=== PATIENT | male | born 1935 | race Caucasian/White ===

== ENCOUNTER 2017-06-30 09:54 | Outpatient (CLI) | payer MEDICARE ==
[2016-10-23 09:22] VITALS: BMI 22.9
--- NOTE | ~2017-06-30 | HEMODYNAMI ---
PATIENT:LEONCIO OLIVER MEDICAL RECORD: [id number] : 33 LOCATION:[address] [id number] ADMISSION DATE: 06/30/17 Generatedon:06/30/201713:00 Patient name: LEONCIO OLIVER Patient #: [id number] SSN: : 1935 Date of study: 06/30/2017 Page: Of Hemodynamic Procedure Report Patient Data Patient Demographics Procedure consent was obtained First Name: LEONCIO Gender: Male Last Name: MELODY : 1935 Middle Initial: R Age: 82 year(s) Patient #: [id number] Race: Additional ID: [id number] Contact details Address: [address] [place] [address] State: [place] City: [place] Zip code: [address] Past Medical History Allergies: No known allergies Admission Admission Data Admission Date: 06/30/2017 Admission Time: 9:54 Room #: 2115 Lab Results Lab Result Date: 06/30/2017 Lab Result Time: 0:00 Biochemistry Name Units Result Min Max CK-MB ng/ml 2.3 --(--*-)-- 0 3.6 Creatinine mg/dl 1 --(--*-)-- 0.6 1.3 Creatinine l 112 --(-*--)-- 21 215 Kinase Troponin l ng/ml 0.017 --(-*--)-- 0 0.06 CBC Name Units Result Min Max Hemoglobin g/dl 15.8 --(--*-)-- 13.5 17.5 Procedure Procedure Types Cath Procedure Diagnostic Procedure LHC LHC w/Coronaries w/Grafts PCI Procedure SVG-BMS/ELLIOTT Initial Miscellaneous Procedures Moderate Sedation up to 15 minutes Procedure Description Procedure Date Procedure Date: 06/30/2017 Procedure Start Time: 12:43 Procedure End Time: 12:59 Procedure Staff Name Function Lg Bunn MD Performing Physician Bhavik Iraheta RN Nurse Lisa Saba RT Scrjavi Tejeda RT Monitor Procedure Data Cath Procedure Fluoroscopy Diagnostic fluoroscopy Total fluoroscopy Time: 2.4 time: 2.4 min min Diagnostic fluoroscopy Total fluoroscopy dose: 679 dose: 679 mGy mGy Contrast Material Contrast Material Type Amount (ml) Isovue 300 103 Entry Location Entry Primary Successful Side Size Upsize Upsize Entry Closure Succes sful Closure Location (Fr) 1 (Fr) 2 (Fr) Remarks Device Remarks Femoral Right 5 Fr 6 Fr artery Short Estimated blood loss: 10 ml Diagnostic catheters Device Type Used For End Catheter Placement Cordis 5Fr Pigtail Procedure Catheter (MP) Cordis 5Fr JL 4.0 Procedure Catheter (MP) Diagnostic Infinity 5Fr Procedure AR 2 MOD catheter Procedure Complications No complications Procedure Medications Medication Administration Route Dosage Oxygen NC 2 l/min Lidocaine 2% added to field 20 Heparin Flush Bag added to field 2 bags (1000units/500ml NS) 0.9% NaCl I.V. 100 ml/hr Versed I.V. 1 mg Fentanyl I.V. 50 mcg Versed I.V. 1 mg Fentanyl I.V. 50 mcg Heparin Bolus I.V. 4000 units Hemodynamics Rest HGB: 15.8 (g/dl) Heart Rate: 55 (bpm) Snapshots Pre Cath Intra NCS Post Cath Vital Signs Time Heart Resp SPO2 etCO2 BG1qtga NIBP (mmHg) Rhythm Pain Sedation Rate (ipm) (%) (mmHg) (mmHg) Status Level (bpm) 12:30:58 63 14 98 0 0 No Cuff NSR 0 (11) 10(A) , No pain 12:35:10 54 13 100 0 0 167/72(112) NSR 0 (11) 10(A) , No pain 12:39:30 50 15 96 0 0 159/69(125) NSR 0 (11) 10(A) , No pain 12:43:44 51 13 94 0 0 148/79(118) NSR 0 (11) 9(A) , No pain 12:47:52 59 14 94 0 0 169/88(153) NSR 0 (11) 9(A) , No pain 12:52:12 57 15 96 0 0 160/72(129) NSR 0 (11) 9(A) , No pain 12:55:53 61 15 98 0 0 157/71(124) NSR 0 (11) 10(A) , No pain Medications Time Medication Route Dose Verified Delivered Reason Notes Effectiveness by by 12:34:37 Oxygen NC 2 Lg Buffie used for l/min Sepideh Iraheta RN procedure 12:34:44 Lidocaine 2% added 20ml Lg Buffie used for to vial Sepideh Iraheta RN procedure field 12:34:50 Heparin Flush added 2 Lg Buffie used for Bag to bags Sepideh Iraheta RN procedure (1000units/500ml field NS) 12:34:58 0.9% NaCl I.V. 100 Lg Buffie Per physician ml/hr Sepideh Iraheta RN 12:37:31 Versed I.V. 1 mg Lg Buffie for sedation Sepideh Iraheta RN 12:37:38 Fentanyl I.V. 50 Lg Buffie for sedation mcg Sepideh Iraheta RN 12:43:15 Versed I.V. 1 mg Lg Buffie for sedation Sepideh Iraheta RN 12:43:18 Fentanyl I.V. 50 Lg Buffie for sedation mcg Sepideh Iraheta RN 12:48:19 Heparin Bolus I.V. 4000 Lg Buffie for verifi ed units Sepideh Iraheta RN anticoagulation with dr bunn Procedure Log Time Note 12:10:53 Allan Tejeda RT(R) sent for patient. Start room use. 12:18:54 Time tracking: Regular hours 12:18:58 Plan of Care:Hemodynamics will remain stable., Cardiac rhythm will remain stable., Comfort level will be maintained., Respiratory function will remain adequate., Patient/ family verbilizes understanding of procedure., Procedure tolerated without complication., Recovers from procedure without complications.. 12:23:30 Lab Result : Troponin l 0.017 ng/ml 12:23:30 Lab Result : Hemoglobin 15.8 g/dl 12:23:30 Lab Result : Creatinine Kinase 112 l 12:23:30 Lab Result : Creatinine 1 mg/dl 12:23:30 Lab Result : CK-MB 2.3 ng/ml 12:25:34 Patient received from ED to CCL 1 Alert and oriented. Tansferred to table in Supine position. 12:25:35 Warm blankets applied, and kuldip hugger turned on for patient comfort. 12:25:36 Correct patient and procedure confirmed by team. 12::37 Signed procedure consent form obtained from patient. 12:25:38 ECG and BP/O2 sat monitors applied to patient. 12:25:39 Full Disclosure recording started 12:30:08 Vital chart was started 12:34:37 Oxygen 2 l/min NC was administered by Bhavik Iraheta RN; used for procedure; 12:34:44 Lidocaine 2% 20ml vial added to field was administered by Bhavik Iraheta RN; used for procedure; 12:34:50 Heparin Flush Bag (1000units/500ml NS) 2 bags added to field was administered by Bhavik Iraheta RN; used for procedure; 12:34:58 0.9% NaCl 100 ml/hr I.V. was administered by Bhavik Iraheta RN; Per physician; 12:35:43 Rhythm: sinus bradycardia 12:35:45 Baseline sample Acquired. 12:35:51 H&P Date Dictated: 06/30/2017 Emergent; H&P N/A. 12:35:51 Pre-procedure instructions explained to patient. 12:35:52 Pre-op teaching completed and patient verbalized understanding. 12:35:55 Family in patients room. 12:35:56 Patient NPO since Midnight. 12:35:58 Is the patient allergic to Iodine/contrast media? No. 12:36:00 Is patient on blood thinner?Yes 12:36:02 ACC The patient was administered the following blood thiners within the last 24 hours: ACCPlavix 12:36:04 Patient diabetic? No. 12:36:07 Previous problem with sedation/anesthesia? No ? 12:36:08 Snore? Yes 12:36:09 Sleep apnea? No 12:36:10 Deviated septum? No 12:36:11 Opens mouth fully? Yes 12:36:12 Sticks out tongue? Yes 12:36:13 Airway obstruction? No ? 12:36:16 Dentures? Yes IN 12:36:28 Pre procedure: right dorsailis pedis pulse 1+ Palpable, but thready & weak; easily obliterated 12:36:31 Patient pain scale 0/10 ?. 12:36:36 IV patent on arrival in right forearm with 0.9% NaCl at [facility]. 12:36:38 Lab results completed and on chart. 12:36:43 Right groin area was prepped with chlora-prep and draped in sterile fashion 12:36:45 Alarms reviewed by Ra Poole 12:36:45 Sharps counted by scrub and verified by R.N. 12::47 --------ALL STOP TIME OUT------ 12:36:47 Final Timeout: patient, procedure, and site verified with staff and physician. All members of the team are in agreement. 12:36:50 Right groin site verified by team. 12:36:57 Physical assessment completed. ASA score P 2 - A patient with mild systemic disease as per Lg Bunn MD. 12:36:59 Sedation plan: IV Moderate Sedation Versed, Fentanyl 12:37:31 Versed 1 mg I.V. was administered by Bhavik Iraheta RN; for sedation; 12:37:38 Fentanyl 50 mcg I.V. was administered by Bhavik Iraheta RN; for sedation; 12:39:53 Zero performed for pressure channel P1 12:42:56 Procedure started. 12:43:00 Local anesthetic to right femoral artery with Lidocaine 2% by Lg Bunn MD.INITIAL ACCESS ONLY 12:43:03 Use device set Femoral Dx 12:43:05 Tegaderm 4 x 4 opened to sterile field. 12:43:09 Acist Hand Control opened to sterile field. 12:43:09 Acist Manifold opened to sterile field. 12:43:11 Acist Syringe opened to sterile field. 12:43:12 Bag Decanter opened to sterile field. 12:43:12 Medline Cath Pack opened to sterile field. 12:43:12 Terumo 5Fr Richardson Sheath opened to sterile field. 12:43:13 St Munir 260cm J .035 wire opened to sterile field. 12:43:14 Diagnostic Infinity 5Fr Multipack catheter opened to sterile field. 12:43:15 Versed 1 mg I.V. was administered by Bhavik Iraheta RN; for sedation; 12:43:18 Fentanyl 50 mcg I.V. was administered by Bhavik Iraheta RN; for sedation; 12:43:31 A 5 Fr sheath was inserted into the Right Femoral artery 12:43:36 A Cordis 5Fr Pigtail Catheter (MP) was advanced over the wire and used for Procedure. 12:43:39 LV angiography performed. 12:43:40 LV gram done using ARREOLA 12:43:44 EF : 60 % 12:43:55 Injector settings: Ml/sec: 7, Volume: 15, 12:43:57 Catheter removed. 12:44:01 A Cordis 5Fr JL 4.0 Catheter (MP) was advanced over the wire and used for Procedure. 12:45:05 LCA angiography performed. 12:45:13 Catheter removed. 12:45:55 A Diagnostic Infinity 5Fr AR 2 MOD catheter was advanced over the wire and used for Procedure. 12:46:02 RCA angiography performed. 12:46:22 SVG to LAD angiography performed. 12:48:19 Heparin Bolus 4000 units I.V. was administered by Bhavik Iraheta RN; for anticoagulation; verified with dr bunn 12:48:40 Catheter removed. 12:49:06 Terumo 6Fr Richardson Sheath opened to sterile field. 12:49:06 Cloudstaffisper J 300cm 0.014 guide wire opened to sterile field. 12:49:07 Spare to Share BasixCompak Inflation Kit opened to sterile field. 12:49:07 Aastrom [employer] Launcher 6Fr AR 2.0 guide catheter opened to sterile field. 12:50:14 Sheath upsized to a 6 Fr Short. 12:50:21 6 Fr AR 2 guide catheter was inserted over the wire 12:50:25 Whisper wire advanced. 12:51:31 Wire advanced across lesion. 12:51:56 Inflation Number: 1 A Los OTW 2.5 x 12 stent was prepped and advanced across the Aorta Left -> 1st Diag. The stent was deployed at 13 ABE for 0:10 (min:sec). 12:52:56 Stent catheter was removed intact over wire. 12:52:57 Wire removed. 12:52:57 Guide catheter removed. 12:53:01 Procedure ended.(Physican Out) 12:53:15 Cordis 6Fr Exoseal opened to sterile field. 12:54:02 Fluoroscopy time 02.40 minutes. 12:54:06 Flurop Dose total: 679 12:54:06 Fluoroscopy dose: 679 mGy 12:54:10 Contrast amount:Isovue 300 103ml. 12:54:13 Sharps counted by scrub and verified by R.N. 12:56:11 Insertion/operative site no bleeding no hematoma. 12:56:16 Post-op/insertion site Right Femoral artery dressed using a 4 x 4 and Tegaderm. 12:56:17 Post Procedure Pulses reassessed and unchanged 12:56:21 Post-procedure physical assessment completed. ASA score P 2 - A patient with mild systemic disease as per Lg Bunn MD. 12:56:24 Post procedure rhythm: unchanged. 12:56:26 Estimated blood loss: 10 ml 12:56:29 Patient needs reinforcement of post procedure teaching. 12:56:30 Post procedure instruction explained to patient.Patient verbalizes understanding. 12:56:43 Procedure type changed to Cath procedure, Diagnostic procedure, LHC, LHC w/Coronaries w/Grafts, PCI procedure, SVG-BMS/ELLIOTT Initial, Miscellaneous Procedures, Moderate Sedation up to 15 minutes 12:56:47 Procedure Complication : No complications 12:56:57 Procedure and supply charges have been captured, reviewed, submitted and are correct. 12:59:12 Vital chart was stopped 12:59:13 See physician's report for complete and final results. 12:59:16 Report given to Pre/Post Procedure Room. 12:59:34 Patient transfered to Pre/Post Procedure Room with Stretcher. 12:59:38 Procedure ended. 12:59:38 Full Disclosure recording stopped 12:59:44 End room use (Document Last) Intervention Summary Intervention Notes Time ActionType Lesion and Equipment Action# Pressure Duration Attributes Used 12:51:56 Place stent Aorta Left [place] OTW 1 13 00:10 -> 1st Diag 2.5 x 12 stent Device Usage Item Name Manufacture Quantity Catalog Hospital Part Current Minimal Lot# / Number Charge Number Stock Stock Serial# Code Tegaderm 4 3M 1 [id number] [id number] 5 x 4 Acist Hand Acist 1 28429 630913 597327 846401 5 Control Medical Systems Inc Acist Acist 1 79803 412888 751591 913663 5 Manifold Medical Systems Inc Acist Acist 1 76885 987720 662243 235307 20 Syringe Medical Systems Inc Bag Microtek 1 2002S 184016 93060 763867 5 Decanter Medical Inc. Medline Cardinal 1 [id number] 581831 41211 932867 5 Cath Enchanted Lighting Terumo 5Fr Terumo 1 [id number] 008039 179425 988289 [address] Munir 1 609209 451729 572665 158917 30 260cm J .035 wire Diagnostic Cardinal 1 [id number] 407597 81446 189220 30 Infinity Health 5Fr Multipack catheter Cordis 5Fr Cardinal 1 032751 5 Pigtail Health Catheter (MP) Cordis 5Fr Cardinal 1 198384 5 JL 4.0 Health Catheter (MP) Diagnostic Cardinal 1 [id number] 866753 375715 457174 20 Infinity Health 5Fr AR 2 MOD catheter Terumo 6Fr Terumo 1 RZB864 411442 431917 766575 40 Richardson Sheath Singh Singh 1 [id number] 705688 755500 291218 5 isper J Vascular 300cm 0.014 guide wire [facility] 1 [id number] 284478 395733 495770 15 TerraX [employer] Medical Inflation Kit Medtronic Medtronic 1 [id number] 144727 70368 044160 1 Launcher 6Fr AR 2.0 guide catheter [place] OTW Medtronic 1 [id number] 946547 67543 148314 5 [id number] 2.5 x 12 stent Cordis 6Fr Cardinal 1 EX600 582382 801769 124746 10 [facility] [employer] Signature Audit [place] Stage Time Signature Unsigned Intra-Procedure 06/30/2017 Allan Tejeda 1:00:44 PM RT(R) Signatures Monitor : Allan Tejeda RT Signature : Date : Time : [id number] [place] [address]
[~2017-06-30 09:54] MED LIST: BAYER CHEWABLE81 MG PO; LAMISIL250 MG PO; LISINOPRIL5 MG PO; LOVASTATIN20 MG PO; MULTIPLE VITAMI1 TA1 PO; NEXIUM40 MG PO; OMEGA-3100 MG PO; PLAVIX75 MG PO; PRAVACHOL40 MG PO; SAW PALMETTO450 MG PO; SYNTHROID25 MCG PO; ZANTAC150 MG PO
[2017-06-30 10:30] LABS: BASOPHILS 0.2 % (0-2); EOSINOPHILS 0.9 % (0-7); HEMATOCRIT 46.6 % (42.0-54.0); HEMOGLOBIN 15.8 g/dL (13.5-17.5); IMMATURE GRANULOCYTES 0.2 % (0-5); LYMPHOCYTES 19.7 % (15-50); MCH 31.7 pg (26.0-34.0); MCHC 33.9 g/dL (31.0-37.0); MCV 93.4 fL (80.0-100.0); MEAN PLATELET VOLUME 9.6 fL (7.4-10.4); MONOCYTES 9.7 % (2-11); NEUTROPHILS 69.3 % (40-80); PLATELET COUNT 150 10x3/uL (130-400); RBC 4.99 10x6/uL (4.20-6.10); WBC 4.3 10x3/uL (4.8-10.8)
[2017-06-30 10:48] LABS: ALBUMIN 3.8 g/dL (3.4-5.0); ALKALINE PHOSPHATASE 73 U/L (46-116); ALT (SGPT) 25 U/L (10-68); CALC OSMOLALITY 281 mosm/kg (275-300); CALCIUM 9.4 mg/dL (8.5-10.1); CARBON DIOXIDE 26.1 mmol/L (21.0-32.0); CHLORIDE - SERUM 108 mmol/L (98-107); GLUCOSE 103 mg/dL (74-106); POTASSIUM - SERUM 4.2 mmol/L (3.5-5.1); PROTEIN - SERUM 7.4 g/dL (6.4-8.2); SODIUM 142 mmol/L (136-145); UREA NITROGEN 10 mg/dL (7-18); eGFR NON AFRICAN AMERICAN 76 mL/min (90-120)
[2017-06-30 11:00] LABS: CHOL - HDL RATIO 4.3 ratio (2.3-4.9); CHOLESTEROL, TOTAL 160 mg/dL (0-200); CKMB 2.3 U/L (0.0-3.6); CREATINE KINASE 112 UL (21-232); HDL CHOLESTEROL 37 mg/dL (32-96); LDL CHOLESTEROL 113 mg/dL (0-100); LDL-HDL RATIO 3.1 ratio (1.5-3.5); TRIGLYCERIDE 53 mg/dL (30-200); TROPONIN-I < 0.017 ng/mL (0.000-0.060)
--- NOTE | 2017-06-30 13:27 | NUR ---
RIGHT GROIN CDI, NO HEMATOMA OR BLEEDING AT SITE, PEDAL PULES POS, GROIN SOFT TO TOUCH. FAMILY AT SIDE-DENIES NEEDS. REMINDED TO KEEP HEAD ON PILLOW AND RIGHT LEG STRAIGHT.
--- NOTE | 2017-06-30 14:00 | NUR ---
NO CHANGE IN RIGHT GROIN, URINAL USED- 300CC OUT, FAMILY AT SIDE
--- NOTE | 2017-06-30 17:30 | NUR ---
D'C HOME WITH FAMILY, WRITTEN AND VERBAL D'C INSTRUCTIONS GIVEN TO PT AND - VERBAL UNDERSTANDING NOTED
--- NOTE | 2017-07-01 09:51 | HP ---
PATIENT: LEONCIO OLIVER MEDICAL RECORD: [id number] ACCOUNT: [id number] LOCATION:NAIF : 34 ADMISSION DATE: 06/30/17 HISTORY AND PHYSICAL EXAMINATION DIAGNOSES: 1. Unstable angina. 2. Coronary artery disease. 3. Previous percutaneous transluminal coronary angioplasty stent. 4. Hypertension. 5. Hyperlipidemia. HISTORY OF PRESENT ILLNESS: Mr. Oliver presents with increasing angina for the past 2 weeks. Last cardiac stent was in October. PHYSICAL EXAMINATION: GENERAL APPEARANCE: Well-nourished, well-developed, appears stated age. Level of distress, comfortable. PSYCHIATRIC: Mental status, alert, normal affect. Orientation, oriented to time, place and person. EYES: Lids and conjunctiva, noninjected. No discharge, no pallor. ENT: Lips, teeth, gums, normal dentition. Oropharynx, no cyanosis, no pallor. NECK: Carotid arteries, bilateral normal upstroke, no bruits, no thrills. JUGULAR VEINS: No jugular venous pressure or distention. CERVICAL LYMPH NODES: Nontender, nonenlarged. THYROID: Not enlarged. Nontender. No nodules. LUNGS: Respiratory effort, unlabored. CHEST: Normal curvature. No thoracic deformity. No chest wall tenderness. Percussion, resonant. Auscultation, clear. No wheezes, no rales, no rhonchi. CARDIOVASCULAR: Precordial exam, nondisplaced. No heaves or pericardial thrills. Rate and rhythm, regular. Heart sounds, normal S1, normal S2. No S3, no gallop, no rub. Systolic murmur, not heard. Diastolic murmur, not heard. EXTREMITIES: No cyanosis, no edema. Peripheral pulses, full and equal in all extremities, except as noted. No bruits appreciated. ABDOMEN: Soft, nondistended. Normal aorta. No bruit. Nontender. No masses. Liver, nontender, no hepatomegaly. Spleen, nontender, no splenomegaly. MUSCULOSKELETAL: No joint tenderness. No joint swelling. No erythema. NEUROLOGICAL: Normal gait, normal strength, normal tone. SKIN: Warm and dry. REVIEW OF SYSTEMS: The patient reports easy bruising but reports no swollen glands. The patient reports no fever, no night sweats, no significant weight gain, no significant weight loss. No significant exercise tolerance. The patient reports no dry eyes, no irritation, no vision change. Patient reports no difficulty hearing and no ear pain. Patient reports no frequent nose bleeds or nose and sinus problems. Patient reports on arm pain on exertion. No shortness of breath while lying down. No history of heart murmur. Patient reports no cough, no wheezing or coughing up blood. Patient reports no abdominal pain, no vomiting. Normal appetite. No diarrhea and not vomiting blood. No nausea and no constipation. Patient reports no incontinence. No difficulty urinating. No hematuria. No increased frequency. Patient reports no muscle aches. No weakness, no arthralgias, no back pain. No swelling of the extremities. Patient reports no abnormal mole, no jaundice, no rashes. Reports no loss of consciousness. No weakness and no numbness. No seizures, dizziness, or headaches. The patient reports no depression, no sleep disturbance, feeling HISTORY AND PHYSICAL [id number] LEONCIO OLIVER safe in a relationship and no alcohol abuse. Patient reports on fatigue. Reports no runny nose or sinus pressure. No itching, no hives, and no frequent sneezing. OVERALL IMPRESSION: Unstable angina. At this time, we will proceed with coronary angiography. Further care depends upon findings of the angiography. TRANSINT:[id number] Voice Confirmation ID: [id number] DOCUMENT ID: [id number] LEYLA LOPEZ MD at 0951 CC: [id number] DICTATION DATE: 06/30/17 1147 NUCLEAR EQUIPMENT RESEARCH ENGINEER: 06/30/17 1208 DEP CLI 06/30/17 [place] [address]
--- NOTE | 2017-07-01 09:51 | OP ---
PATIENT NAME: LEONCIO OLIVER MEDICAL RECORD: [id number] :33 LOCATION:D.OPS ADMISSION DATE: SURGEON: LEYLA LOPEZ MD DATE OF OPERATION: 06/30/2017 PROCEDURES: 1. PTCA stent LAD through patent vein graft. 2. Left heart catheterization. 3. Selective coronary angiography. 4. Vein graft angiography. 5. Left ventriculogram. INDICATION: Unstable angina and coronary artery disease. PROCEDURE IN DETAIL: After informed consent was obtained and after detailed explanation of risks, benefits as well as alternative therapies, the patient elected to proceed with angiogram and angioplasty. The right femoral area is prepped and draped in normal sterile fashion. The right femoral artery was cannulated via modified Seldinger technique with placement of 6-Mohawk sheath. All catheters exchanged through this sheath. FINDINGS: The left ventriculogram was performed in standard 30-degree ARREOLA view, reveals good cardiac wall motion throughout all segments. Overall ejection fraction estimated at 60%. SELECTIVE CORONARY ANGIOGRAPHY: 1. Left main showed no significant angiographic disease. 2. Left anterior descending is totally occluded. 3. Left circumflex is widely patent with no significant stenosis. 4. Vein graft to the LAD - LAD diagonal juncture is widely patent. The diagonal is a relatively large system with a previously placed stent with 70%-80% in-stent restenosis. The LAD is devoid of significant disease. 5. The right coronary has moderate irregularities, but no flow-limiting stenosis. Previously placed stent is widely patent. PTCA STENT OF THE LAD DIAGONAL THROUGH THE VEIN GRAFT: The stent used was a 2.5 x 12 mm Los taken to 17 atmospheres. Result was 0% residual stenosis. OVERALL IMPRESSION: Successful percutaneous transluminal coronary angioplasty stent of the LAD diagonal going from 80% initial stenosis to 0% residual. TRANSINT:[id number] Voice Confirmation ID: [id number] DOCUMENT ID: [id number] LEYLA LOPEZ MD at 0951 CC: [id number] DICTATION DATE: 06/30/17 1258 COMPUTER REPAIRER: 06/30/17 1848 DEP CLI 06/30/17 [place] [address]
== END 2017-06-30 17:30 | disposition home or self-care (01) ==
LOC: D.ER 09:54 → D.OPS 09:54 → D.M2 09:54 → EDSTATUS 12:00 → D.M2 12:42 → D.CLR 14:46 → D.OPS 17:30
PROVIDERS: Emergency Medicine
DX: I25.110 Atherosclerotic heart disease of native coronary artery with unstable angina pectoris (principal); Z95.5 Presence of coronary angioplasty implant and graft; I10 Essential (primary) hypertension; E78.5 Hyperlipidemia, unspecified; Z01.812 Encounter for preprocedural laboratory examination
CPT/HCPCS: 93459; C9600

== ENCOUNTER 2017-07-25 10:31 | Observation (INO) | payer MEDICARE ==
[~2017-07-25] VITALS: Ht 180.3 cm; Wt 72.7 kg
--- NOTE | ~2017-07-25 | HEMODYNAMI ---
PATIENT:LEONCIO OLIVER MEDICAL RECORD: [id number] : 33 LOCATION[facility] [id number] ADMISSION DATE: 07/25/17 Generatedon:07/26/20179:16 Patient name: LEONCIO OLIVER Patient #: [id number] SSN: : 1935 Date of study: 07/26/2017 Page: Of Hemodynamic Procedure Report Patient Data Patient Demographics Procedure consent was obtained First Name: LEONCIO Gender: Male Last Name: MELODY : 1935 Middle Initial: R Age: 82 year(s) Patient #: [id number] Race: Additional ID: [id number] Contact details Address: [address] [place] [address] State: [place] City: [place] Zip code: [address] Past Medical History Allergies: No known allergies Admission Admission Data Admission Date: 07/25/2017 Admission Time: 14:21 Room #: 2118 Lab Results Lab Result Date: 07/26/2017 Lab Result Time: 0:00 Biochemistry Name Units Result Min Max BUN mg/dl 11 --(-*--)-- 7 18 Creatinine mg/dl 0.9 --(-*--)-- 0.6 1.3 CBC Name Units Result Min Max Hemoglobin g/dl 15.2 --(-*--)-- 13.5 17.5 Procedure Procedure Types Cath Procedure Diagnostic Procedure C [facility] w/Coronaries w/Grafts Miscellaneous Procedures Moderate Sedation up to 15 minutes Procedure Description Procedure Date Procedure Date: 07/26/2017 Procedure Start Time: 9:07 Procedure End Time: 9:15 Procedure Staff Name Function Jose Alfredo Parrish MD Performing Physician Lisa Saba RT Scrub Elvin Zhong RN Nurse Marta Shah RT Monitor Procedure Data Cath Procedure Fluoroscopy Diagnostic fluoroscopy Total fluoroscopy Time: 1.1 time: 1.1 min min Diagnostic fluoroscopy Total fluoroscopy dose: 197 dose: 197 mGy mGy Contrast Material Contrast Material Type Amount (ml) Isovue 300 54 Entry Location Entry Primary Successful Side Size Upsize Upsize Entry Closure Succes sful Closure Location (Fr) 1 (Fr) 2 (Fr) Remarks Device Remarks Femoral Right 5 Fr Exoseal artery Estimated blood loss: 10 ml Diagnostic catheters Device Type Used For End Catheter Placement Cordis 5Fr JL 4.0 Procedure Catheter (MP) Cordis 5Fr 3DRC Catheter Procedure (MP) Cordis 5Fr Pigtail Ventriculography Catheter (MP) Procedure Complications No complications Procedure Medications Medication Administration Route Dosage Oxygen NC 2 l/min Heparin Flush Bag added to field 2 bags (1000units/500ml NS) 0.9% NaCl I.V. 100 ml/hr Plavix P.O. 75 mg Fentanyl I.V. 50 mcg Versed I.V. 1 mg Fentanyl I.V. 50 mcg Versed I.V. 1 mg Hemodynamics Rest HGB: 15.2 (g/dl) Heart Rate: 65 (bpm) Pressure Samples Time Site Value (mmHg) Purpose Heart Use Rate(bpm) 9:09 AO 167/69(104) Snapshot 51 9:12 LV 169/9,12 Snapshot 55 9:13 AO 164/63(105) Pullback 54 9:13 LV 180/14,18 Pullback 54 Gradients Valve Time Site 1 Site 2 Mean SEP/DFP Peak To Heart Use (mmHg) (sec/min) Peak Rate (mmHg) (bpm) Aortic 9:13 LV AO 11 18 16 54 180/14,18 164/63(105) Calculations Valve P-P Mean Valve Index Valve Source Name Gradient Area Flow (cm2) Aortic 16 11 16 11 Snapshots Pre Cath Intra NCS Post Cath Vital Signs Time Heart Resp SPO2 etCO2 [id number] NIBP (mmHg) Rhythm Pain Sedation Rate (ipm) (%) (mmHg) (mmHg) Status Level (bpm) 8:51:10 59 18 97 0 0 186/73(145) NSR 0 (11) 10(A) , No pain 8:55:58 50 16 99 0 0 181/73(145) NSR 0 (11) 10(A) , No pain 9:00:45 49 17 97 0 0 153/74(115) NSR 0 (11) 10(A) , No pain 9:06:01 51 18 94 0 0 143/75(115) NSR 0 (11) 10(A) , No pain 9:11:14 51 17 96 0 0 176/76(142) NSR 0 (11) 9(A) , No pain 9:15:26 54 18 92 0 0 143/75(112) NSR 0 (11) 9(A) , No pain Medications Time Medication Route Dose Verified Delivered Reason Notes Eff ectiveness by by 8:52:11 Oxygen NC 2 Jose Alfredo Elvin Per l/min St. José Zhong RN physician 8:52:23 Heparin Flush added 2 Jose Alfredo Elvin used for Bag to bags St. José Zhong RN procedure (1000units/500ml field NS) 8:52:32 0.9% NaCl I.V. 100 Jose Alfredo Oconnor Per ml/hr St. José Zhong RN physician 8:55:33 Plavix P.O. 75 mg Jose Alfredo Oconnor for FrancoisRobbi Zhong RN antiplatelet MD therapy 9:04:47 Fentanyl I.V. 50 Jose Alfredo [employer] for sedation mcg St. José Zhong RN, MD 9:04:55 Versed I.V. 1 mg Jose Alfredo Oconnor for sedation St. José Zhong RN, MD 9:07:38 Fentanyl I.V. 50 Jose Alfredo Oconnor for sedation mcg St. José Zhong RN, MD 9:07:44 Versed I.V. 1 mg Jose Alfredo Oconnor for sedation St. José Zhong RN, MD Procedure Log Time Note 8:30:33 Elvin Zhong RN sent for patient. Start room use. 8:37:34 Time tracking: Call back 8:37:38 Plan of Care:Hemodynamics will remain stable., Cardiac rhythm will remain stable., Comfort level will be maintained., Respiratory function will remain adequate., Patient/ family verbilizes understanding of procedure., Procedure tolerated without complication., Recovers from procedure without complications.. 8:45:47 Patient received from PCU to CCL 1 Alert and oriented. Tansferred to table in Supine position. 8:45:55 Warm blankets applied, and kuldip hugger turned on for patient comfort. 8:45:55 Correct patient and procedure confirmed by team. 8:45:56 Signed procedure consent form obtained from patient. 8:45:57 ECG and BP/O2 sat monitors applied to patient. 8:45:58 Full Disclosure recording started 8:50:12 Baseline sample Acquired. 8:50:12 Vital chart was started 8:50:17 Rhythm: sinus rhythm 8:52:11 Oxygen 2 l/min NC was administered by Elvni Zhong RN; Per physician; 8:52:23 Heparin Flush Bag (1000units/500ml NS) 2 bags added to field was administered by Elvin Zhong RN; used for procedure; 8:52:32 0.9% NaCl 100 ml/hr I.V. was administered by Elvin Zhong RN; Per physician; 8:55:33 Plavix 75 mg P.O. was administered by Elvin Zhong RN; for antiplatelet therapy; 8:56:30 Cook 18G 7cm Percutaneous Entry needle opened to sterile field. 8:56:51 H&P Date Dictated: 07/25/2017 Within 30 days and on chart.. 8:56:53 Pre-procedure instructions explained to patient. 8:56:56 Family unavailable. 8:56:59 Patient NPO since Midnight. 8:57:09 Patient allergic to No known allergies 8:57:13 Is the patient allergic to Iodine/contrast media? No. 8:57:16 Is patient on blood thinner?Yes 8:57:21 ACC The patient was administered the following blood thiners within the last 24 hours: ACCAspirin, ACCPlavix 8:57:24 Patient diabetic? No. 8:57:28 Snore? No 8:57:30 Sleep apnea? No 8:57:36 Dentures? Yes in tight 8:57:59 Patient pain scale 0/10 pain with activity'. 8:58:09 IV patent on arrival in right forearm with 0.9% NaCl at [facility]. 8:59:12 Lab Result : BUN 11 mg/dl 8:59:12 Lab Result : Creatinine 0.9 mg/dl 8:59:12 Lab Result : Hemoglobin 15.2 g/dl 8:59:17 Lab results completed and on chart. 8:59:21 Right groin area was prepped with chlora-prep and draped in sterile fashion 8:59:22 Alarms reviewed by R. N. 8:59:23 Sharps counted by scrub and verified by R.N. 8:59:24 Physician paged 8:59:57 Procedure type changed to Cath procedure, Diagnostic procedure, LHC, LHC w/Coronaries w/Grafts, Miscellaneous Procedures, Moderate Sedation up to 15 minutes 9:03:47 Physician arrived 9:03:55 --------ALL STOP TIME OUT------ 9:03:56 Final Timeout: patient, procedure, and site verified with staff and physician. All members of the team are in agreement. 9:03:59 Right groin site verified by team. 9:04:03 Sedation plan: IV Moderate Sedation Versed, Fentanyl 9:04:07 Zero performed for pressure channel P1 9:04:27 Zero performed for pressure channel P1 9::47 Fentanyl 50 mcg I.V. was administered by Elvin Zhong RN; for sedation; 9::55 Versed 1 mg I.V. was administered by Elvin Zhong RN; for sedation; 9:07:07 Procedure started. 9:07:17 Local anesthetic to right femoral artery with Lidocaine 2% by Jose Alfredo Parrish MD.INITIAL ACCESS ONLY 9:07:32 A 5 Fr sheath was inserted into the Right Femoral artery 9:07:38 Fentanyl 50 mcg I.V. was administered by Elvin Zhong RN; for sedation; 9:07:44 Versed 1 mg I.V. was administered by Elvin Zhong RN; for sedation; 9:07:51 Use device set Femoral Dx 9:07:53 Acist Syringe opened to sterile field. 9:07:53 Bag Decanter opened to sterile field. 9:07:54 Medline Cath Pack opened to sterile field. 9:07:54 Terumo 5Fr [place] Sheath opened to sterile field. 9:07:55 St Munir 260cm J .035 wire opened to sterile field. 9:07:56 Acist Hand Control opened to sterile field. 9:07:56 Acist Manifold opened to sterile field. 9:07:57 Diagnostic Infinity 5Fr Multipack catheter opened to sterile field. 9:07:57 Tegaderm 4 x 4 opened to sterile field. 9:08:06 A Cordis 5Fr JL 4.0 Catheter (MP) was advanced over the wire and used for Procedure. 9:08:12 LCA angiography performed. 9:09:50 Catheter removed. 9:10:00 A Cordis 5Fr 3DRC Catheter (MP) was advanced over the wire and used for Procedure. 9:10:52 RCA angiography performed. 9:11:46 Catheter removed. 9:11:59 A Cordis 5Fr Pigtail Catheter (MP) was advanced over the wire and used for Ventriculography. 9:12:05 LV gram done using ARREOLA 9:13:12 EF : 55 % 9:13:14 Catheter removed. 9:13:25 Cordis 5Fr Exoseal opened to sterile field. 9:13:50 Sheath removed intact; hemostasis achieved with Exoseal to the Right Femoral artery. 9:13:53 Procedure ended.(Physican Out) 9:14:03 Fluoroscopy time 01.10 minutes. 9:14:09 Flurop Dose total: 197 9:14:09 Fluoroscopy dose: 197 mGy 9:14:14 Contrast amount:Isovue 300 54ml. 9:14:16 Sharps counted by scrub and verified by R.N. 9:14:17 Insertion/operative site no bleeding no hematoma. 9:14:21 Post-op/insertion site Right Femoral artery dressed using a 4 x 4 and Tegaderm. 9:14:23 Post Procedure Pulses reassessed and unchanged 9:14:28 Post-procedure physical assessment completed. ASA score P 2 - A patient with mild systemic disease as per Jose Alfredo Parrish MD. 9:14:34 Post procedure rhythm: sinus rhythm 9:14:40 Estimated blood loss: 10 ml 9:14:47 Post procedure instruction explained to patient.Patient verbalizes understanding. 9:14:58 Patient needs reinforcement of post procedure teaching. 9:15:00 Procedure and supply charges have been captured, reviewed, submitted and are correct. 9:15:33 Procedure Complication : No complications 9:15:36 Vital chart was stopped 9:15:37 See physician's report for complete and final results. 9:15:40 Report given to Med II. 9:15:43 Patient transfered to Med II with Bed. 9:15:45 Procedure ended. 9:15:45 Full Disclosure recording stopped 9:15:48 End room use (Document Last) Device Usage Item Name Manufacture Quantity Catalog Hospital Part Current Minimal Lot# / Number Charge Number Stock Stock Serial# Code Cook 18G 7cm [employer] 1 [id number] 63068 799218 5 Percutaneous Entry needle Acist Acist 1 37618 786455 739800 648716 20 [employer] Bag Decanter Microtek 1 2002S 085314 24176 881361 5 Medical Inc[employer] Medline Cath Cardinal 1 [id number] 185981 78669 988993 5 Pack Health Terumo 5Fr Terumo 1 [id number] 096033 919517 350724 [address] St Munir 1 [id number] 044033 914754 951719 30 260cm J .035 wire Acist Hand Acist 1 27987 510184 649542 545445 5 [employer] Inc Acist Acist 1 10146 059081 405321 084688 5 Manifold [employer] Inc Diagnostic Cardinal 1 [id number] 146137 56992 833350 30 Infinity 5Fr Health Multipack catheter Tegaderm 4 x 3M 1 1626W 694322 393191 697941 5 4 Cordis 5Fr Cardinal 1 470497 5 JL 4.0 Health Catheter (MP) Cordis 5Fr Cardinal 1 765888 5 3DRC Health Catheter (MP) Cordis 5Fr Cardinal 1 760181 5 Pigtail Health Catheter (MP) Cordis 5Fr Cardinal 1 EX500 462561 813094 144634 10 [facility] DWNLD Signature Audit [place] Stage Time Signature Unsigned Intra-Procedure 07/26/2017 Marta Shah 9:16:12 AM RT(R) Signatures Monitor : Marta Shah Signature : RT Date : Time : [address] [place] [address]
--- NOTE | ~2017-07-25 | CN ---
PATIENT NAME:LEONCIO OLIVER MEDICAL RECORD: [id number] : 33 LOCATION:D. D.2118 ADMIT DATE: 07/25/17 ACCOUNT: [id number] CONSULTING PHYSICIAN: BRITTANIE GRUBBS MD REFERRING PHYSICIAN: CATRACHO RICO DO DATE OF CONSULTATION: 07/26/2017 HISTORY OF PRESENT ILLNESS: An 82-year-old gentleman well known to our service with history of coronary artery disease, status post intervention, has had continued pain since that time, acutely worsened yesterday with any exertion, chest tightness and pressure. We were asked to see him concerning his cardiovascular status. ALLERGIES: None known. MEDICATIONS: Typically include lovastatin 20 q. day, Plavix 75 q. day, aspirin 81 mg p.o. q. day, Nexium 20 q. day. PAST MEDICAL HISTORY: Includes history of coronary artery disease, dyslipidemia and gastroesophageal reflux disease. SOCIAL HISTORY: He lives by himself. He is a nonsmoker, nondrinker. He takes care of all his ADLs, tries to walk on a daily basis. REVIEW OF SYSTEMS: The patient reports easy bruising but reports no swollen glands. The patient reports no fever, no night sweats, no significant weight gain, no significant weight loss. No significant exercise tolerance. The patient reports no dry eyes, no irritation, no vision change. Patient reports no difficulty hearing and no ear pain. Patient reports no frequent nose bleeds or nose and sinus problems. Patient reports on arm pain on exertion. No shortness of breath while lying down. No history of heart murmur. Patient reports no cough, no wheezing or coughing up blood. Patient reports no abdominal pain, no vomiting. Normal appetite. No diarrhea and not vomiting blood. No nausea and no constipation. Patient reports no incontinence. No difficulty urinating. No hematuria. No increased frequency. Patient reports no muscle aches. No weakness, no arthralgias, no back pain. No swelling of the extremities. Patient reports no abnormal mole, no jaundice, no rashes. Reports no loss of consciousness. No weakness and no numbness. No seizures, dizziness, or headaches. The patient reports no depression, no sleep disturbance, feeling safe in a relationship and no alcohol abuse. Patient reports on fatigue. Reports no runny nose or sinus pressure. No itching, no hives, and no frequent sneezing. PHYSICAL EXAMINATION: GENERAL: Pleasant gentleman, in no acute distress. VITAL SIGNS: Blood pressure 131/93, pulse 59 and regular. HEENT: Normocephalic, atraumatic. NECK: No JVD or bruit. HEART: Regular. LUNGS: Clear. ABDOMEN: Soft, nontender. EXTREMITIES: Pulses 2+. There is no edema. DIAGNOSTIC DATA: ECG is without acute change. CONSULT REPORT [id number] LEONCIO OLIVER IMPRESSION: Continued angina. PLAN: For diagnostic angiography, intervention based on above. TRANSINT:[id number] Voice Confirmation ID: [id number] DOCUMENT ID: [id number] BRITTANIE GRUBBS MD CC: [id number] DICTATION DATE: 07/26/17845 TAFFY CANDY MAKER: 07/26/17914 ADM IN [address] [place] [address]
--- NOTE | ~2017-07-25 | OP ---
PATIENT NAME: LEONCIO OLIVER MEDICAL RECORD: [id number] :33 LOCATION:D.M2 D.2118 ADMISSION DATE:07/25/17 SURGEON: BRITTANIE GRUBBS MD DATE OF OPERATION: 07/26/2017 PROCEDURES: Left heart catheterization, selective coronary angiography, right femoral artery approach. CATHETERS: A 5-Maltese sheath, 5/4 left and right Tresa, 5/4 pig. The procedure was well tolerated. The patient returned to lr, sheath removed. ExoSeal device was placed. FINDINGS: Left ventriculography in 30-degree ARREOLA view: Normal wall motion, normal systolic function. CORONARY ANATOMY: LEFT MAIN: Left main is free of disease. LAD: Fills for a short period of time and is totally occluded. CIRCUMFLEX: This is a left dominant system, free of disease. RIGHT CORONARY ARTERY: Rudimentary. Area of previous stenting is widely patent. BYPASS GRAFT: Saphenous vein graft: Saphenous vein graft to the diagonal which feeds LAD retrograde is widely patent, stents patent. IMPRESSION: Patent stent. Probably has small vessel disease resulting in angina. No high risk anatomy here. We will add Imdur to his medical therapy. Further recommendations as above. TRANSINT:[id number] Voice Confirmation ID: [id number] DOCUMENT ID: [id number] BRITTAINE GRUBBS MD CC: [id number] DICTATION DATE: 07/26/17924 GRAIN SPOUTER: 07/26/17 1005 DIS IN 07/26/17 [facility] [address] [id number]
[2017-07-25 12:01] LABS: BASOPHILS 0.4 % (0-2); EOSINOPHILS 1.3 % (0-7); HEMATOCRIT 44.5 % (42.0-54.0); HEMOGLOBIN 15.2 g/dL (13.5-17.5); LYMPHOCYTES 17.6 % (15-50); MCH 31.3 pg (26.0-34.0); MCHC 34.2 g/dL (31.0-37.0); MCV 91.8 fL (80.0-100.0); MEAN PLATELET VOLUME 9.9 fL (7.4-10.4); MONOCYTES 10.3 % (2-11); NEUTROPHILS 70.4 % (40-80); PLATELET COUNT 151 10x3/uL (130-400); RBC 4.85 10x6/uL (4.20-6.10); RDW 12.8 % (11.5-14.5); WBC 4.7 10x3/uL (4.8-10.8)
[2017-07-25 12:25] LABS: ALBUMIN 3.6 g/dL (3.4-5.0); ALKALINE PHOSPHATASE 56 U/L (46-116); ALT (SGPT) 24 U/L (10-68); CALC OSMOLALITY 275 mosm/kg (275-300); CALCIUM 9.4 mg/dL (8.5-10.1); CARBON DIOXIDE 24.9 mmol/L (21.0-32.0); CHLORIDE - SERUM 107 mmol/L (98-107); CREATININE - SERUM 0.9 mg/dL (0.6-1.3); GLUCOSE 108 mg/dL (74-106); PROTEIN - SERUM 6.8 g/dL (6.4-8.2); SODIUM 138 mmol/L (136-145); UREA NITROGEN 11 mg/dL (7-18); eGFR NON AFRICAN AMERICAN 85 mL/min (90-120)
[2017-07-25 12:28] LABS: CHOL - HDL RATIO 3.8 ratio (2.3-4.9); CHOLESTEROL, TOTAL 129 mg/dL (0-200); CREATINE KINASE 151 UL (21-232); HDL CHOLESTEROL 34 mg/dL (32-96); LDL CHOLESTEROL 84 mg/dL (0-100); LDL-HDL RATIO 2.5 ratio (1.5-3.5); TRIGLYCERIDE 58 mg/dL (30-200); TROPONIN-I < 0.017 ng/mL (0.000-0.060)
--- NOTE | 2017-07-25 16:13 | NUR ---
BRETT FROM ER BY KIAN. OREINTED TO ROOM. CALL LIGHT IN REACH. WILL CONT. PLAN OF CARE.
[2017-07-25] MEDS ORDERED: NEXIUM20 MG PO (16:32)
[2017-07-25 16:34] VITALS: BP 132/64; Ht 180.3 cm; Wt 72.7 kg
[2017-07-25 19:22] LABS: CREATINE KINASE 114 UL (21-232)
[2017-07-25 19:23] LABS: TROPONIN-I < 0.017 ng/mL (0.000-0.060)
[2017-07-25 20:00] VITALS: BP 137/63
--- NOTE | 2017-07-25 22:39 | NUR ---
PT RESTING WELL WITHOUT C/O OR DISTRESS NOTED. NO NEEDS VOICED. CALL LIGHT WITHIN REACH. WILL CONT TO MONITOR.
--- NOTE | 2017-07-26 | NUR ---
PT INSTRUCTED ON BEING NPO AT THIS TIME FOR HEART CATH IN AM. VERBALIZED UNDERSTANDING. BEDSIDE FLUIDS REMOVED AT THIS TIME.
[2017-07-26 01:09] LABS: CREATINE KINASE 95 UL (21-232)
[2017-07-26 01:12] LABS: TROPONIN-I < 0.017 ng/mL (0.000-0.060)
--- NOTE | 2017-07-26 02:09 | NUR ---
PT RESTING WELL WITHOUT C/O OR DISTRESS NOTED. CALL LIGHT WITHIN REACH. WILL CONT TO MONITOR.
[2017-07-26 04:00] VITALS: BP 122/68
[2017-07-26 05:51] LABS: BASOPHILS 0.3 % (0-2); EOSINOPHILS 2.8 % (0-7); HEMOGLOBIN 14.7 g/dL (13.5-17.5); LYMPHOCYTES 24.2 % (15-50); MCH 30.8 pg (26.0-34.0); MCHC 33.4 g/dL (31.0-37.0); MCV 92.1 fL (80.0-100.0); MEAN PLATELET VOLUME 9.5 fL (7.4-10.4); MONOCYTES 11.5 % (2-11); NEUTROPHILS 61.2 % (40-80); PLATELET COUNT 148 10x3/uL (130-400); RBC 4.78 10x6/uL (4.20-6.10); RDW 12.8 % (11.5-14.5); WBC 3.6 10x3/uL (4.8-10.8)
[2017-07-26 06:19] LABS: ALBUMIN 3.3 g/dL (3.4-5.0); ALKALINE PHOSPHATASE 59 U/L (46-116); ALT (SGPT) 23 U/L (10-68); CALC OSMOLALITY 277 mosm/kg (275-300); CALCIUM 9.1 mg/dL (8.5-10.1); CARBON DIOXIDE 28.4 mmol/L (21.0-32.0); CHLORIDE - SERUM 107 mmol/L (98-107); CKMB 1.2 U/L (0.0-3.6); CREATINE KINASE 86 UL (21-232); GLUCOSE 114 mg/dL (74-106); POTASSIUM - SERUM 3.9 mmol/L (3.5-5.1); PROTEIN - SERUM 6.3 g/dL (6.4-8.2); SODIUM 139 mmol/L (136-145); TROPONIN-I < 0.017 ng/mL (0.000-0.060); UREA NITROGEN 11 mg/dL (7-18); eGFR NON AFRICAN AMERICAN 76 mL/min (90-120)
--- NOTE | 2017-07-26 07:15 | NUR ---
RECEIVED PT SITTING ON BED AAOX4 RESP UNLABORED DENIES ANY NEEDS OR DISCOMFORT AT THIS TIME NAD NOTED
[2017-07-26 08:21] VITALS: BP 131/93
--- NOTE | 2017-07-26 09:10 | NUR ---
TO PERSONNEL PLACEMENT SPECIALIST VIA BED
[2017-07-26 12:19] VITALS: BP 144/69
[2017-07-26] MEDS ORDERED: ISOSORBIDE MONO30 M1 PO (13:15)
--- NOTE | 2017-07-26 16:45 | NUR ---
REVIEWED DISCHARGE INSTRUCTIONS WITH PT AND BOTH STATE UNDERSTANDING COPY GIVEN DCD SALINE LOCK TO RT HAND WITH IV CATHETER INTACT SITE FREE OF REDNESS OR EDEMA PT DISCHARGED HOME LEFT VIA W/C IN STABLE CONDITION WITH ALL PERSONAL BELONGINGS
== END 2017-07-26 16:45 | disposition home or self-care (01) ==
LOC: D.ER 10:31 → D.M2 14:21 → OBSVTIME 14:21 → D.M2 07-26 16:45
PROVIDERS: Emergency Medicine; ADMIT Family Medicine
DX: I25.119 Atherosclerotic heart disease of native coronary artery with unspecified angina pectoris (principal); Z95.1 Presence of aortocoronary bypass graft; Z95.5 Presence of coronary angioplasty implant and graft; K21.9 Gastro-esophageal reflux disease without esophagitis; E03.9 Hypothyroidism, unspecified; E78.5 Hyperlipidemia, unspecified

== ENCOUNTER → 2018-01-09 07:46 | Outpatient (CLI) | payer MEDICARE ==
[~2018-01-09] VITALS: Ht 180.3 cm; Wt 74.1 kg
--- NOTE | ~2018-01-09 | OP ---
PATIENT NAME: LEONCIO OLIVER MEDICAL RECORD: [id number] :33 LOCATION:D.CAT ADMISSION DATE: SURGEON: LEYLA LOPEZ MD DATE OF OPERATION: 01/09/2018 PROCEDURES: 1. PTCA stent to LAD diagonal through patent vein graft. 2. Left heart catheterization. 3. Selective coronary angiography. 4. Vein graft angiography. INDICATION: Angina and coronary artery disease. PROCEDURE IN DETAIL: After informed consent was obtained and after detailed explanation of risks, benefits as well as alternative therapies, the patient elected to proceed with angiogram and angioplasty. The right femoral area was prepped and draped in normal sterile fashion. The right femoral artery was cannulated via modified Seldinger technique with placement of a 6-Vincentian sheath. All catheters exchanged through this sheath. FINDINGS: Left ventriculogram was performed in standard 30-degree ARREOLA view, reveals good cardiac wall motion throughout all segments. Overall ejection fraction estimated at 55%. SELECTIVE CORONARY ANGIOGRAPHY: 1. Left main showed no significant angiographic disease. 2. Left anterior descending is totally occluded proximally. 3. Vein graft going to the LAD and LAD diagonal is widely patent; however, the diagonal has 80% stenosis after the vein graft. The LAD has only moderate irregularities. 4. The left circumflex is widely patent with only moderate irregularities, no flow-limiting stenosis. 5. The right coronary has previously placed stent. There is up to 50% in-stent restenosis, but this does not appear to be flow limiting. PTCA STENT OF THE LAD DIAGONAL: The stent used was a 2.25 x 12 mm Lincoln. Result was 0% residual stenosis. OVERALL IMPRESSION: Successful percutaneous transluminal coronary angioplasty stent of the LAD diagonal through the patent vein graft going from 80% initial stenosis to 0% residual. TRANSINT:[id number] Voice Confirmation ID: [id number] DOCUMENT ID: [id number] LEYLA LOPEZ MD at 1153 CC: [id number] DICTATION DATE: 01/09/18 1106 ADVERTISING STRATEGIST: 01/09/18 1120 [facility] [address] [id number]
--- NOTE | ~2018-01-09 | HEMODYNAMI ---
PATIENT:LEONCIO OLIVER MEDICAL RECORD: [id number] : 33 LOCATION:[facility] ADMISSION DATE: 01/09/18 Generatedon:01/09/201811:06 Patient name: LEONCIO OLIVER Patient #: [id number] SSN: : 1935 Date of study: 01/09/2018 Page: Of Hemodynamic Procedure Report Patient Data Patient Demographics Procedure consent was obtained First Name: LEONCIO Gender: Male Last Name: MELODY : 1935 Middle Initial: R Age: 83 year(s) Patient #: [id number] Race: Additional ID: [id number] Contact details Address: [address] [place] [address] State: [place] City: [place] Zip code: [address] Past Medical History Allergies: No known allergies Admission Admission Data Admission Date: 01/09/2018 Admission Time: 7:46 Lab Results Lab Result Date: 01/09/2018 Lab Result Time: 0:00 Biochemistry Name Units Result Min Max BUN mg/dl 11 --(-*--)-- 7 18 Creatinine mg/dl 1 --(--*-)-- 0.6 1.3 CBC Name Units Result Min Max Hemoglobin g/dl 14.5 --(*---)-- 13.5 17.5 Procedure Procedure Types Cath Procedure Diagnostic Procedure Sedation Charges Moderate Sedation up to 15 [facility] w/Coronaries w/Grafts Peripheral Cath Diagnostic Procedure Cath Peripheral Czzpr-Btzjojk-Dpf-Off Procedure Description Procedure Date Procedure Date: 01/09/2018 Procedure Start Time: 10:49 Procedure End Time: 11:06 Procedure Staff Name Function Lg Bunn MD Performing Physician Lisa Saba RT Monitor Caty Valencia RT Scrub Bhavik Iraheta RN Nurse Procedure Data Cath Procedure Fluoroscopy Diagnostic fluoroscopy Total fluoroscopy Time: 3.9 time: 3.9 min min Diagnostic fluoroscopy Total fluoroscopy dose: 591 dose: 591 mGy mGy Contrast Material Contrast Material Type Amount (ml) Isovue 300 121 Entry Location Entry Primary Successful Side Size Upsize Upsize Entry Closure Succes sful Closure Location (Fr) 1 (Fr) 2 (Fr) Remarks Device Remarks Femoral Right 5 Fr 6 Fr Exoseal artery Short Estimated blood loss: 10 ml Diagnostic catheters Device Type Used For End Catheter Placement MULTIPACK Pigtail 5 Fr LV Angiography catheter MULTIPACK Pigtail 5 Fr Abdominal catheter aortogram with runoff MULTIPACK JL 4.0 5Fr Left Coronary catheter Angiography DIAGNOSTIC AR 1 MOD 5Fr SVG Angiography catheter ([id number]) MULTIPACK 3DRC 5Fr Right Coronary catheter Angiography Procedure Complications No complications Procedure Medications Medication Administration Route Dosage Oxygen NC 2 l/min Lidocaine 2% added to field 20 Heparin Flush Bag added to field 2 bags (1000units/500ml NS) 0.9% NaCl I.V. 100 ml/hr Versed I.V. 1 mg Fentanyl I.V. 50 mcg Versed I.V. 1 mg Fentanyl I.V. 50 mcg Versed I.V. 1 mg Fentanyl I.V. 50 mcg Heparin Bolus I.V. 4000 units Hemodynamics Rest HGB: 14.5 (g/dl) Heart Rate: 63 (bpm) Snapshots Pre Cath Intra NCS Post Cath Vital Signs Time Heart Resp SPO2 etCO2 NIBP (mmHg) Rhythm Pain Sedation Rate (ipm) (%) (mmHg) Status Level (bpm) 10:25:22 68 20 98 31.4 152/87(111) NSR 0 (11) 10(A) , No pain 10:30:05 62 18 95 0.7 150/76(117) NSR 0 (11) 10(A) , No pain 10:34:45 65 17 93 0 142/73(111) NSR 0 (11) 10(A) , No pain 10:39:26 64 16 92 0 139/73(111) NSR 0 (11) 10(A) , No pain 10:44:07 62 15 94 0 139/67(113) NSR 0 (11) 10(A) , No pain 10:48:47 60 14 96 0 133/70(112) NSR 0 (11) 9(A) , No pain 10:53:28 64 14 93 0 129/61(102) NSR 0 (11) 9(A) , No pain 10:58:04 66 14 93 0 137/69(110) NSR 0 (11) 9(A) , No pain 11:02:45 68 15 94 0 137/63(112) NSR 0 (11) 10(A) , No pain Medications Time Medication Route Dose Verified Delivered Reason Notes Effectiveness by by 10:20:57 Oxygen NC 2 Lg Buffie used for l/min Sepideh Iraheta RN procedure 10:21:05 Lidocaine 2% added 20ml Lg Lg for local to vial Sepideh Bunn MD anesthetic field 10:21:13 Heparin Flush added 2 Lg Lg used for Bag to bags Sepideh Bunn MD procedure (1000units/500ml field NS) 10:21:22 0.9% NaCl I.V. 100 Lg Buffie Per physician ml/hr Sepideh Iraheta RN 10:40:21 Versed I.V. 1 mg Lg Buffie for sedation Sepideh Iraheta RN 10:40:27 Fentanyl I.V. 50 Lg Buffie for sedation mcg Sepideh Iraheta RN 10:45:09 Versed I.V. 1 mg Lg Buffie for sedation Sepideh Iraheta RN 10:45:13 Fentanyl I.V. 50 Lg Buffie for sedation mcg Sepideh Iraheta RN 10:49:20 Versed I.V. 1 mg Lg Buffie for sedation Sepideh Iraheta RN 10:49:24 Fentanyl I.V. 50 Lg Buffie for sedation mcg Sepideh Iraheta RN 10:58:14 Heparin Bolus I.V. 4000 Lg Buffie for verifi ed units Sepideh Iraheta RN anticoagulation with dr bunn Procedure Log Time Note 10:02:30 Time tracking: Regular hours 10:02:34 Plan of Care:Hemodynamics will remain stable., Cardiac rhythm will remain stable., Comfort level will be maintained., Respiratory function will remain adequate., Patient/ family verbilizes understanding of procedure., Procedure tolerated without complication., Recovers from procedure without complications.. 10:03:22 H&P Date Dictated: 01/07/2018 Within 30 days and on chart.. 10:03:31 Patient allergic to No known allergies 10:04:39 Bhavik Iraheta RN sent for patient. Start room use. 10:05:02 Lab Result : BUN 11 mg/dl 10:05:02 Lab Result : Hemoglobin 14.5 g/dl 10:05:02 Lab Result : Creatinine 1 mg/dl 10:12:45 Patient received from Pre/Post Procedure Room to CCL 1 Alert and oriented. Tansferred to table in Supine position. 10:12:46 Warm blankets applied, and kuldip hugger turned on for patient comfort. 10:12:47 Correct patient and procedure confirmed by team. 10:12:48 Signed procedure consent form obtained from patient. 10:12:49 ECG and BP/O2 sat monitors applied to patient. 10:12:50 Full Disclosure recording started 10:20:57 Oxygen 2 l/min NC was administered by Bhavik Iraheta RN; used for procedure; 10:21:05 Lidocaine 2% 20ml vial added to field was administered by Lg Bunn MD; for local anesthetic; 10:21:13 Heparin Flush Bag (1000units/500ml NS) 2 bags added to field was administered by Lg Bunn MD; used for procedure; 10:21:22 0.9% NaCl 100 ml/hr I.V. was administered by Bhavik Iraheta RN; Per physician; 10:24:34 Vital chart was started 10:24:39 Rhythm: sinus rhythm 10:27:24 Pre-procedure instructions explained to patient. 10:27:25 Pre-op teaching completed and patient verbalized understanding. 10:27:27 Family in waiting room. 10:27:28 Patient NPO since Midnight. 10:27:34 Is the patient allergic to Iodine/contrast media? No. 10:27:36 Is patient on blood thinner?Yes 10:27:38 ACC The patient was administered the following blood thiners within the last 24 hours: ACCPlavix 10:27:40 Patient diabetic? No. 10:27:46 Previous problem with sedation/anesthesia? No ? 10:27:52 Snore? No 10:27:53 Sleep apnea? No 10:27:54 Deviated septum? No 10:27:55 Opens mouth fully? Yes 10:27:56 Sticks out tongue? Yes 10:27:58 Airway obstruction? No ? 10:28:01 Dentures? Yes IN 10:28:05 Pre procedure: right dorsailis pedis pulse 2+ Normal; easily identifiable; not easily obliterated 10:28:07 Pre procedure: left dorsailis pedis pulse 2+ Normal; easily identifiable; not easily obliterated 10:28:09 Patient pain scale 0/10 ?. 10:28:18 IV patent on arrival in left hand with 0.9% NaCl at [facility]. 10:28:21 Lab results completed and on chart. 10:28:25 Bilateral groins area was prepped with chlora-prep and draped in sterile fashion 10:: Alarms reviewed by R. N. 10:: Sharps counted by scrub and verified by R.N. 10:28:53 Procedure type changed to Cath procedure, Diagnostic procedure, Sedation Charges, Moderate Sedation up to 15 minutes, LHC, LHC w/Coronaries w/Grafts, Peripheral Cath Diagnostic Procedure, Cath Peripheral, Ugkct-Fpztegg-Dak-Off 10:32:57 Use device set Femoral Dx 10:32:59 ACIST Syringe (21182) opened to sterile field. 10:32:59 Bag Decanter (2002S) opened to sterile field. 10:33:00 Medline Cath Pack ([id number]) opened to sterile field. 10:33:01 SHEATH 5FR [place] ([id number]) opened to sterile field. 10:33:02 DIAGNOSTIC WIRE .035 260cm J wire (369560) opened to sterile field. 10:33:03 ACIST Hand Control (58091) opened to sterile field. 10:33:03 ACIST Manifold (19610) opened to sterile field. 10:33:04 DIAGNOSTIC Multipack 5Fr catheter set ([id number]) opened to sterile field. 10:33:04 Tegaderm 4 x 4 (1626W) opened to sterile field. 10:33:05 PERCUTANEOUS ENTRY 19GA needle opened to sterile field. 10:40:00 Final Timeout: patient, procedure, and site verified with staff and physician. All members of the team are in agreement. 10:40:02 Right groin site verified by team. 10:40:04 Physical assessment completed. ASA score P 2 - A patient with mild systemic disease as per Lg Bunn MD. 10:40:07 Sedation plan: IV Moderate Sedation Medication:Versed, Fentanyl 10:40:21 Versed 1 mg I.V. was administered by Bhavik Iraheta RN; for sedation; 10:40:27 Fentanyl 50 mcg I.V. was administered by Bhavik Iraheta RN; for sedation; 10:44:34 Baseline sample Acquired. 10:45:09 Versed 1 mg I.V. was administered by Bhavik Iraheta RN; for sedation; 10:45:13 Fentanyl 50 mcg I.V. was administered by Bhavik Iraheta RN; for sedation; 10:49:10 Procedure started. 10:49:20 Versed 1 mg I.V. was administered by Bhavik Iraheta RN; for sedation; 10:49:24 Fentanyl 50 mcg I.V. was administered by Bhavik Iraheta RN; for sedation; 10:49:46 Local anesthetic to right femoral artery with Lidocaine 2% by Lg Bunn MD.INITIAL ACCESS ONLY 10:49:55 A 5 Fr sheath was inserted into the Right Femoral artery 10:50:39 A MULTIPACK Pigtail 5 Fr catheter was advanced over the wire and used for LV Angiography. 10:50:56 LV gram done using ARREOLA 10:50:59 Injector settings: Ml/sec: 10, Volume: 20, 10:51:04 EF : 60 % 10:51:12 A MULTIPACK Pigtail 5 Fr catheter was advanced over the wire and used for Abdominal aortogram with runoff. 10:51:48 Catheter removed. 10:52:22 A MULTIPACK JL 4.0 5Fr catheter was advanced over the wire and used for Left Coronary Angiography. 10:53:20 Catheter removed. 10:54:51 A DIAGNOSTIC AR 1 MOD 5Fr catheter ([id number]) was advanced over the wire and used for SVG Angiography.to LAD 10:56:14 Catheter removed. 10:56:21 A MULTIPACK 3DRC 5Fr catheter was advanced over the wire and used for Right Coronary Angiography. 10:56:27 Use device set [facility] PCI 10:56:29 INFLATOR Merit BasixCompak ([id number]) opened to sterile field. 10:56:30 SHEATH 6FR [place] (TXO083) opened to sterile field. 10:56:34 CHOICE PT Extra Support 182cm wire ([id number]) opened to sterile field. 10:57:11 Sheath upsized to a 6 Fr Short. 10:58:14 Heparin Bolus 4000 units I.V. was administered by Bhavik Iraheta RN; for anticoagulation; verified with dr bunn 10:58:23 6 Fr AR 2.0 guide catheter was inserted over the wire 10:58:29 GUIDE 6FR AR 2.0 catheter (VT2HD98) opened to sterile field. 10:59:05 CHOICE PT ES wire advanced. 11:00:37 Inflation Number: 1 A MABLE RX 2.25 x 12 stent ([id number]) was prepped and advanced across the Aorta Left -> 1st Diag. The stent was deployed at 11 ABE for 0:07 (min:sec). 11:00:57 Stent catheter was removed intact over wire. 11:00:57 Wire removed. 11:00:58 Guide catheter removed. 11:01:10 EXOSEAL 6Fr (EX600) opened to sterile field. 11:01:16 Sheath removed intact; hemostasis achieved with Exoseal to the Right Femoral artery. 11:01:18 Procedure ended.(Physican Out) 11:03:31 Fluoroscopy time 03.90 minutes. 11:03:34 Flurop Dose total: 591 11:03:34 Fluoroscopy dose: 591 mGy 11:03:37 Contrast amount:Isovue 300 121ml. 11:03:38 Sharps counted by scrub and verified by R.N. 11:03:38 Insertion/operative site no bleeding no hematoma. 11:03:41 Post-op/insertion site Right Femoral artery dressed using a 4 x 4 and Tegaderm. 11:03:44 Post right femoral artery:stable, clean and dry 11:03:46 Post Procedure Pulses reassessed and unchanged 11:03:49 Post-procedure physical assessment completed. ASA score P 2 - A patient with mild systemic disease as per Lg Bunn MD. 11:03:51 Post procedure rhythm: unchanged. 11:03:54 Estimated blood loss: 10 ml 11:03:56 Post procedure instruction explained to patient.Patient verbalizes understanding. 11:03:56 Patient needs reinforcement of post procedure teaching. 11:04:01 Procedure Complication : No complications 11:04:03 See physician's report for complete and final results. 11:05:51 Procedure and supply charges have been captured, reviewed, submitted and are correct. 11:05:52 Vital chart was stopped 11:05:55 Report given to Pre/Post Procedure Room. 11:05:58 Patient transfered to Pre/Post Procedure Room with Stretcher. 11:06:02 Procedure ended. 11:06:02 Full Disclosure recording stopped 11:06:10 End room use (Document Last) Intervention Summary Intervention Notes Time ActionType Lesion and Equipment Used Action# Pressure Duration Attributes 11:00:37 Place stent Aorta Left MABLE RX 2.25 x 1 11 00:07 -> 1st Diag 12 stent ([id number]) Device Usage Item Name Manufacture Quantity Catalog Number Hospital Part Current M inimal Lot# / Charge Number Stock Stock Serial# Code ACIST Syringe Acist 1 35140 449856 [id number] [id number] 2 0 (68886) Medical Systems Inc Bag Decanter Microtek 1 2001S 450691 76054 765525 5 () Medical Inc. Medline Cath Cardinal 1 [id number] 907954 35695 345729 5 [employer] ([id number]) SHEATH 5FR Terumo 1 [id number] 416899 186734 252130 4 0 [place] (JUU029) DIAGNOSTIC [facility] 1 053792 633294 463371 311692 3 0 WIRE .035 260cm J wire (854412) ACIST Hand Acist 1 48628 099650 107899 474601 5 Control Medical (51334) Systems Inc ACIST Manifold Acist 1 66016 785713 506538 781231 5 (46129) Medical Systems Inc DIAGNOSTIC Cardinal 1 KU9070 732987 60062 269756 3 0 Multipack 5Fr Health catheter set ([id number]) Tegaderm 4 x 4 3M 1 1626W 904128 638357 796703 5 (1626W) PERCUTANEOUS [facility] 1 B27623 226491 703723 5 ENTRY 19GA needle MULTIPACK Cardinal 1 828954 5 Pigtail 5 Fr Health catheter MULTIPACK JL Cardinal 1 446264 5 4.0 5Fr Health catheter DIAGNOSTIC AR Cardinal 1 [id number] 876064 269369 522377 1 5 1 MOD 5Fr Health catheter ([id number]) MULTIPACK 3DRC Cardinal 1 993551 5 5Fr catheter Health INFLATOR Merit Merit 1 [id number] 869981 002117 013015 1 5 [employer] ([id number]) SHEATH 6FR Terumo 1 ZUX904 141414 963173 343279 4 0 [place] (ANF005) CHOICE PT [place] 1 [id number] 964946 525186 312964 5 Extra Support Scientific 182cm wire ([id number]) GUIDE 6FR AR Medtronic 1 [id number] 372700 83213 375690 1 2.0 catheter ([id number]) MABLE RX 2.25 x Medtronic 1 [id number] 713969 5876986 319538 5 [id number] 12 stent ([id number]) EXOSEAL 6Fr Cardinal 1 EX600 111722 054965 502535 1 0 (EX600) Health Signature Audit [place] Stage Time Signature Unsigned Intra-Procedure 01/09/2018 Lisa 11:06:37 AM Counts RT(R) Signatures Monitor : Lisa Signature : Counts RT Date : Time : [address] [address]
--- NOTE | ~2018-01-09 | OP ---
PATIENT NAME: LEONCIO OLIVER MEDICAL RECORD: [id number] :33 LOCATION:D.[facility] ADMISSION DATE: SURGEON: LEYLA LOPEZ MD DATE OF OPERATION: 01/09/2018 PROCEDURE: 1. Aortofemoral runoff. 2. Abdominal aortography. INDICATION: Leg pain compatible with claudication. PROCEDURE IN DETAIL: After informed consent was obtained and after detailed explanation of risks, benefits as well as alternative therapies, the patient elected to proceed with angiogram. The right femoral area had a preexisting sheath from coronary intervention. All catheters exchanged through this sheath. FINDINGS: Abdominal aortography was performed. The catheter was pulled down for aortofemoral runoff. Abdominal aortography reveals no significant abdominal aortic disease. No dissection or aneurysmal formation. No renal artery stenosis. RIGHT LEG: A. Iliac: The common internal and external iliacs have moderate irregularities, but no flow-limiting stenosis. B. Femoral system: The common superficial and deep femoral have moderate irregularities, but no flow-limiting stenosis. C. Popliteal and infrapopliteal vessels are widely patent with good 3-vessel runoff to the foot. LEFT LEG: A. Iliac: The common internal and external iliacs have moderate irregularities, but no flow-limiting stenosis. B. Femoral system: The common superficial and deep femoral have moderate irregularities, but no flow-limiting stenosis. C. Popliteal and infrapopliteal vessels are widely patent with good 3-vessel runoff to the foot. OVERALL IMPRESSION: Wide patency of both legs. Leg pain is non-arterial vascular in etiology. TRANSINT:[id number] Voice Confirmation ID: [id number] DOCUMENT ID: [id number] LEYLA LOPEZ MD at 1153 CC: [id number] DICTATION DATE: 01/09/18 1106 SENIOR CYBER INTELLIGENCE ANALYST: 01/09/18 1121 [address] [place] [address]
[~2018-01-09 07:46] MED LIST changes: +ANORO ELLIPTA1 EACH INH; +BRILINTA90 MG PO; +EFFIENT10 MG PO; +FUROSEMIDE20 MG PO; +ISOSORBIDE MONO30 M1 PO; +LEVAQUIN750 MG PO; +LEVOTHYROXINE50 MCG PO; +NEXIUM20 MG PO; +PROAIR HFA8.5 GM INH; +PROTONIX40 MG PO; +STERAPRED DS 1010 MG PO
[2018-01-09 08:20] VITALS: BP 144/63; Ht 180.3 cm; Wt 74.1 kg
[2018-01-09 08:25] LABS: BASOPHILS 0.5 % (0-2); HEMATOCRIT 43.4 % (42.0-54.0); HEMOGLOBIN 14.5 g/dL (13.5-17.5); IMMATURE GRANULOCYTES 0.3 % (0-5); LYMPHOCYTES 21.5 % (15-50); MCH 30.6 pg (26.0-34.0); MCHC 33.4 g/dL (31.0-37.0); MCV 91.6 fL (80.0-100.0); MEAN PLATELET VOLUME 9.4 fL (7.4-10.4); MONOCYTES 15.4 % (2-11); NEUTROPHILS 61.3 % (40-80); PLATELET COUNT 149 10x3/uL (130-400); RBC 4.74 10x6/uL (4.20-6.10); RDW 13.5 % (11.5-14.5)
[2018-01-09 08:46] LABS: CALC OSMOLALITY 276 mosm/kg (275-300); CALCIUM 9.6 mg/dL (8.5-10.1); CARBON DIOXIDE 27.1 mmol/L (21.0-32.0); CHLORIDE - SERUM 107 mmol/L (98-107); GLUCOSE 89 mg/dL (74-106); SODIUM 140 mmol/L (136-145); UREA NITROGEN 11 mg/dL (7-18); eGFR NON AFRICAN AMERICAN 76 mL/min (90-120)
== END | disposition home or self-care (01) ==
LOC: D.CATH 07:46
PROVIDERS: Internal Medicine Interventional Cardiology
DX: I25.119 Atherosclerotic heart disease of native coronary artery with unspecified angina pectoris (principal); E78.5 Hyperlipidemia, unspecified; I10 Essential (primary) hypertension; Z01.812 Encounter for preprocedural laboratory examination
CPT/HCPCS: 93459; C9600

== ENCOUNTER 2018-01-11 15:09 | Inpatient (IN) | payer MEDICARE ==
[~2018-01-11] VITALS: Ht 180.3 cm; Wt 72.6 kg
--- NOTE | ~2018-01-11 | HEMODYNAMI ---
PATIENT:LEONCIO OLIVER MEDICAL RECORD: [id number] : 33 [address] [id number] ADMISSION DATE: 01/12/18 Generatedon:01/12/201811:14 Patient name: LEONCIO OLIVER Patient #: [id number] SSN: : 1935 Date of study: 01/12/2018 Page: Of Hemodynamic Procedure Report Patient Data Patient Demographics Procedure consent was obtained First Name: LEONCIO Gender: Male Last Name: MELODY : 1935 Middle Initial: R Age: 83 year(s) Patient #: [id number] Race: Additional ID: [id number] Contact details Address: [address] [place] [address] State: [place] City: [place] Zip code: [address] Past Medical History Allergies: No known allergies Admission Admission Data Admission Date: 01/12/2018 Admission Time: 1:57 Room #: [facility] Lab Results Lab Result Date: 01/12/2018 Lab Result Time: 6:15 Biochemistry Name Units Result Min Max BUN mg/dl 10 --(-*--)-- 7 18 Creatinine mg/dl 0.9 --(-*--)-- 0.6 1.3 CBC Name Units Result Min Max Hematocrit % 44.3 --(*---)-- 42 54 Hemoglobin g/dl 14.5 --(*---)-- 13.5 17.5 Procedure Procedure Types Cath Procedure Diagnostic Procedure Sedation Charges Moderate Sedation up to 15 minutes [facility] LHC w/Coronaries w/Grafts PCI Procedure PTCA PTCA Initial Procedure Description Procedure Date Procedure Date: 01/12/2018 Procedure Start Time: 10:41 Procedure End Time: 11:13 Procedure Staff Name Function Lg Bunn MD Performing Physician Caty Valencia RT Monitor Pranay Swanson RT Scrub Bhavik Iraheta RN Nurse Procedure Data Cath Procedure Fluoroscopy Diagnostic fluoroscopy Total fluoroscopy Time: 8.7 time: 8.7 min min Diagnostic fluoroscopy Total fluoroscopy dose: 619 dose: 619 mGy mGy Contrast Material Contrast Material Type Amount (ml) Isovue 300 134 Entry Location Entry Primary Successful Side Size Upsize Upsize Entry Closure Succes sful Closure Location (Fr) 1 (Fr) 2 (Fr) Remarks Device Remarks Femoral Left 5 Fr 6 Fr artery Short Estimated blood loss: 10 ml Diagnostic catheters Device Type Used For End Catheter Placement MULTIPACK Pigtail 5 Fr Procedure catheter MULTIPACK JL 4.0 5Fr Procedure catheter DIAGNOSTIC AR MOD 5Fr Procedure Catheter ([id number]) Procedure Complications No complications Procedure Medications Medication Administration Route Dosage Oxygen NC 2 l/min Lidocaine 2% added to field 20 Heparin Flush Bag added to field 2 bags (1000units/500ml NS) 0.9% NaCl I.V. 100 ml/hr Brilinta P.O. 180 mg Versed I.V. 1 mg Fentanyl I.V. 50 mcg Versed I.V. 1 mg Fentanyl I.V. 50 mcg Heparin Bolus I.V. 4000 units Integrilin (Bolus I.V. 6.8 ml 2mg/ml) Nitroglycerin IC/IA I.C. 200 mcg Fentanyl I.V. 25 mcg Hemodynamics Rest HGB: 14.5 (g/dl) Heart Rate: 76 (bpm) Snapshots Pre Cath Intra NCS Post Cath Vital Signs Time Heart Resp SPO2 etCO2 NIBP (mmHg) Rhythm Pain Sedation Rate (ipm) (%) (mmHg) Status Level (bpm) 10:24:09 72 12 97 31 143/75(122) NSR 0 (11) 10(A) , No pain 10:28:46 80 11 98 32.5 142/82(119) NSR 0 (11) 10(A) , No pain 10:33:24 79 16 97 31.8 142/74(111) NSR 0 (11) 10(A) , No pain 10:38:03 75 17 94 0 138/73(105) NSR 0 (11) 10(A) , No pain 10:42:41 83 14 92 0 114/65(88) NSR 0 (11) 9(A) , No pain 10:47:14 77 13 93 0 114/65(92) NSR 0 (11) 9(A) , No pain 10:51:48 77 13 94 0 111/64(90) NSR 0 (11) 9(A) , No pain 10:56:23 73 14 93 0 120/58(90) NSR 0 (11) 9(A) , No pain 11:00:57 77 14 93 0 118/66(86) NSR 0 (11) 9(A) , No pain 11:05:32 82 15 92 0 105/64(85) NSR 0 (11) 9(A) , No pain 11:10:04 78 15 91 0 109/64(91) NSR 0 (11) 10(A) , No pain Medications Time Medication Route Dose Verified Delivered Reason Notes Effectiveness by by 10:24:49 Oxygen NC 2 Lg Buffie used for l/min Sepideh Iraheta RN procedure 10:24:54 Lidocaine 2% added 20ml Lg Lg for local to vial Sepideh Bunn MD anesthetic field 10:25:00 Heparin Flush added 2 Lg Lg used for Bag to bags Sepideh Bunn MD procedure (1000units/500ml field NS) 10:25:10 0.9% NaCl I.V. 100 Lg Gutierres Per physician ml/hr Sepideh Iraheta RN 10:29:17 Brilinta P.O. 180 Lg Smithie for mg Sepideh Iraheta RN antiplatelet therapy 10:38:21 Versed I.V. 1 mg Lg Smithie for sedation Sepideh Iraheta RN 10:38:28 Fentanyl I.V. 50 Lg Buffie for sedation mcg Sepideh Iraheta RN 10:41:31 Versed I.V. 1 mg Lg Smithie for sedation Sepideh Iraheta RN 10:41:34 Fentanyl I.V. 50 Lg Smithie for sedation mcg Sepideh Iraheta RN 10:48:31 Heparin Bolus I.V. 4000 Lg Gutierres for verifi ed units Sepideh Iraheta RN anticoagulation with dr bunn 10:50:51 Integrilin I.V. 6.8 Lg Smithie for wasted (Bolus 2mg/ml) ml Sepideh Iraheta RN antiplatelet 3.2 ml therapy of vial 10:53:53 Fentanyl I.V. 25 Lg Gutierres for sedation elvin Iraheta RN 11:02:06 Nitroglycerin I.C. 200 Lg Castanon for IC/IA mcg Sepideh Bunn MD vasodilation Procedure Log Time Note 9:50:52 Informed consent obtained and on chart 9:51:57 Diagnostic Cath status Elective 9:51:58 Time tracking: Regular hours 9:52:01 Plan of Care:Hemodynamics will remain stable., Cardiac rhythm will remain stable., Comfort level will be maintained., Respiratory function will remain adequate., Patient/ family verbilizes understanding of procedure., Procedure tolerated without complication., Recovers from procedure without complications.. 9:53:07 Lab Result : Hemoglobin 14.5 g/dl 9:53:07 Lab Result : Creatinine 0.9 mg/dl 9:53:07 Lab Result : BUN 10 mg/dl 9:53:07 Lab Result : Hematocrit 44.3 % 10:07:08 Bhavik Iraheta RN sent for patient. Start room use. 10:16:49 Patient received from CVICU to CCL 1 Alert and oriented. Tansferred to table in Supine position. 10:16:50 Warm blankets applied, and kuldip hugger turned on for patient comfort. 10:16:51 Correct patient and procedure confirmed by team. 10:16:52 ECG and BP/O2 sat monitors applied to patient. 10:23:21 Vital chart was started 10:23:23 Baseline sample Acquired. 10:23:37 Rhythm: sinus rhythm 10:23:38 Full Disclosure recording started 10:23:45 H&P Date Dictated: 01/12/2018 Within 30 days and on chart.. 10:23:46 Pre-procedure instructions explained to patient. 10:23:46 Pre-op teaching completed and patient verbalized understanding. 10:23:50 Family in patients room. 10:23:52 Patient NPO since Midnight. 10:23:57 Patient allergic to No known allergies 10:24:12 pt has not had plavix past two days 10:24:49 Oxygen 2 l/min NC was administered by Bhavik Iraheta RN; used for procedure; 10:24:54 Lidocaine 2% 20ml vial added to field was administered by Lg Bunn MD; for local anesthetic; 10:25:00 Heparin Flush Bag (1000units/500ml NS) 2 bags added to field was administered by Lg Bunn MD; used for procedure; 10:25:10 0.9% NaCl 100 ml/hr I.V. was administered by Bhavik Iraheta RN; Per physician; 10:28:39 Patient diabetic? No. 10:28:45 Previous problem with sedation/anesthesia? No ? 10:28:46 Snore? Yes 10:28:48 Sleep apnea? No 10::53 Deviated septum? No 10:28:55 Opens mouth fully? Yes 10:28:56 Sticks out tongue? Yes 10:29:01 Airway obstruction? No ? 10:29:06 Dentures? Yes IN TIGHT 10:29:10 Pre procedure: left dorsailis pedis pulse 2+ Normal; easily identifiable; not easily obliterated 10:29:17 Brilinta 180 mg P.O. was administered by Bhavik Iraheta RN; for antiplatelet therapy; 10:29:17 Patient pain scale 2/10 ?. 10:29:24 IV patent on arrival in right forearm with 0.9% NaCl at [facility]. 10:29:29 Lab results completed and on chart. 10:29:32 Left groin area was prepped with chlora-prep and draped in sterile fashion 10:29:33 Alarms reviewed by R. N. 10:29:33 Sharps counted by scrub and verified by R.N. 10:29:37 Use device set Femoral Dx 10:29:38 ACIST Syringe (15741) opened to sterile field. 10:29:39 Bag Decanter (2002S) opened to sterile field. 10:29:40 ACIST Hand Control (09376) opened to sterile field. 10:29:41 ACIST Manifold (27763) opened to sterile field. 10:29:42 Tegaderm 4 x 4 (1626W) opened to sterile field. 10:29:43 Medline Cath Pack ([id number]) opened to sterile field. 10:29:44 SHEATH 5FR [employer] (LSM630) opened to sterile field. 10:29:45 DIAGNOSTIC WIRE .035 260cm J wire (330081) opened to sterile field. 10:29:46 PERCUTANEOUS ENTRY 19GA needle opened to sterile field. 10:29:47 DIAGNOSTIC Multipack 5Fr catheter set ([id number]) opened to sterile field. 10:36:42 --------ALL STOP TIME OUT------ 10:36:42 Final Timeout: patient, procedure, and site verified with staff and physician. All members of the team are in agreement. 10:36:44 Left groin site verified by team. 10:36:49 Physical assessment completed. ASA score P 2 - A patient with mild systemic disease as per Lg Bunn MD. 10:36:53 Sedation plan: IV Moderate Sedation Medication:Versed, Fentanyl 10:36:56 Zero performed for pressure channel P1 10:37:05 Zero performed for pressure channel P1 10:38:21 Versed 1 mg I.V. was administered by Bhavik Iraheta RN; for sedation; 10:38:28 Fentanyl 50 mcg I.V. was administered by Bhavik Iraheta RN; for sedation; 10:41:03 Procedure started. 10:41:12 Local anesthetic to left femerol artery with Lidocaine 2% by Lg Bunn MD.INITIAL ACCESS ONLY 10:41:31 Versed 1 mg I.V. was administered by Bhavik Iraheta RN; for sedation; 10:41:34 Fentanyl 50 mcg I.V. was administered by Bhavik Iraheta RN; for sedation; 10:41:57 A 5 Fr sheath was inserted into the Left Femoral artery 10:42:34 A MULTIPACK Pigtail 5 Fr catheter was advanced over the wire and used for Procedure. 10:42:37 LV gram done using ARREOLA 10:42:41 Injector settings: Ml/sec: 10, Volume: 20, 10:43:08 EF : 55 % 10:43:10 Catheter removed. 10:43:17 A MULTIPACK JL 4.0 5Fr catheter was advanced over the wire and used for Procedure. 10:43:56 LCA angiography performed. 10:44:14 Catheter removed. 10:44:30 A DIAGNOSTIC AR MOD 5Fr Catheter ([id number]) was advanced over the wire and used for Procedure. 10:45:42 BETANCUR DOES NOT HAVE A CONNECTION 10:45:50 RCA angiography performed. 10:46:07 SVG to Diag angiography performed. 10:46:26 Catheter removed. 10:46:58 INFLATOR Merit BasixCompak (VH4703) opened to sterile field. 10:47:02 SHEATH 6FR [employer] (BIT778) opened to sterile field. 10:47:04 GUIDE 6FR AR 2.0 catheter ([id number]) opened to sterile field. 10:47:12 CHOICE PT Extra Support 182cm wire ([id number]) opened to sterile field. 10:47:30 Sheath upsized to a 6 Fr Short. 10:48:01 6 Fr AR 2 guide catheter was inserted over the wire 10:48:31 Heparin Bolus 4000 units I.V. was administered by Bhavik Iraheta RN; for anticoagulation; verified with dr bunn 10:48:48 CHOICE ES 182 wire advanced. 10:49:36 WIRE REMOVED 10:50:26 CHOICE PT Extra Support J 300cm guide wire ([id number]) opened to sterile field. 10:50:51 Integrilin (Bolus 2mg/ml) 6.8 ml I.V. was administered by Bhavik Iraheta RN; for antiplatelet therapy; wasted 3.2 ml of vial 10:51:34 Wire advanced across lesion. 10:52:15 Inflation number: 1 A EMERGE OTW 1.5 x 20 balloon ([id number]) was prepped and advanced across the Aorta Left -> 1st Diag, then inflated to 21 ABE for 0:10 (min:sec). 10:52:28 Inflation number: 2 The EMERGE OTW 1.5 x 20 balloon ([id number]) was reinflated across the Aorta Left -> 1st Diag, to 21 ABE for 0:10 (min:sec). 10:53:49 Inflation number: 3 The EMERGE OTW 1.5 x 20 balloon ([id number]) was reinflated across the Aorta Left -> 1st Diag, to 13 ABE for 0:10 (min:sec). 10:53:53 Fentanyl 25 mcg I.V. was administered by Bhavik Iraheta RN; for sedation; 10:54:09 Inflation number: 4 The EMERGE OTW 1.5 x 20 balloon ([id number]) was reinflated across the Aorta Left -> 1st Diag, to 15 ABE for 0:10 (min:sec). 10:54:36 Balloon removed over the wire. 10:56:03 Inflation number: 5 A EUPHORA 2.0 x 20 Balloon ([id number]) was prepped and advanced across the Aorta Left -> 1st Diag, then inflated to 17 ABE for 0:10 (min:sec). 10:57:05 Wire removed. 10:58:01 Balloon removed over the wire. 10:58:05 CHOICE ES 182 WIRE ADVANCED 10:58:20 Wire advanced across lesion. 10:59:34 Inflation number: 6 The EUPHORA 2.0 x 20 Balloon ([id number]) was reinflated across the Aorta Left -> 1st Diag, to 17 ABE for 0:10 (min:sec). 10:59:54 Inflation number: 7 The EUPHORA 2.0 x 20 Balloon ([id number]) was reinflated across the Aorta Left -> 1st Diag, to 19 ABE for 0:10 (min:sec). 11:02:06 Nitroglycerin IC/IA 200 mcg I.C. was administered by Lg Bunn MD; for vasodilation; 11:03:05 Inflation number: 8 The EUPHORA 2.0 x 20 Balloon ([id number]) was reinflated across the Aorta Left -> 1st Diag, to 1 ABE for 0:10 (min:sec). 11:03:28 Balloon removed over the wire. 11:03:30 Wire removed. 11:03:31 Guide catheter removed. 11:03:56 EXOSEAL 6Fr (EX600) opened to sterile field. 11:04:25 Procedure ended.(Physican Out) 11:04:43 Fluoroscopy time 08.70 minutes. 11:04:48 Flurop Dose total: 619 11:04:48 Fluoroscopy dose: 619 mGy 11:04:53 Contrast amount:Isovue 300 134ml. 11:04:59 Post-op/insertion site Left Femoral artery dressed using a 4 x 4 and Tegaderm. 11:05:05 Post left femerol artery:stable, soft, clean and dry 11:05:10 Post procedure: left dorsailis pedis pulse 2+ Normal; easily identifiable; not easily obliterated. 11:05:16 Post-procedure physical assessment completed. ASA score P 2 - A patient with mild systemic disease as per Lg Bunn MD. 11:05:20 Post procedure rhythm: unchanged. 11:05:24 Estimated blood loss: 10 ml 11:05:26 Post procedure instruction explained to patient.Patient verbalizes understanding. 11:05:26 Patient needs reinforcement of post procedure teaching. 11:09:27 Procedure type changed to Cath procedure, Diagnostic procedure, Sedation Charges, Moderate Sedation up to 15 minutes, LHC, LHC w/Coronaries w/Grafts, PCI procedure, PTCA, PTCA Initial 11:12:56 Procedure and supply charges have been captured, reviewed, submitted and are correct. 11:12:58 Procedure Complication : No complications 11:13:01 Vital chart was stopped 11:13:01 See physician's report for complete and final results. 11:13:02 Report given to CVICU. 11:13:05 Patient transfered to CVICU with Bed. 11:13:07 Procedure ended. 11:13:07 Full Disclosure recording stopped 11:13:10 End room use (Document Last) Intervention Summary Intervention Notes Time ActionType Lesion and Equipment Action# Pressure Duration Attributes Used 10:52:15 Inflate Aorta Left EMERGE OTW 1 21 00:10 balloon -> 1st Diag 1.5 x 20 balloon ([id number]) 10:52:28 Reinflate Aorta Left EMERGE OTW 2 21 00:10 balloon -> 1st Diag 1.5 x 20 balloon ([id number]) 10:53:49 Reinflate Aorta Left EMERGE OTW 3 13 00:10 balloon -> 1st Diag 1.5 x 20 balloon ([id number]) 10:54:09 Reinflate Aorta Left EMERGE OTW 4 15 00:10 balloon -> 1st Diag 1.5 x 20 balloon ([id number]) 10:56:03 Inflate Aorta Left EUPHORA 2.0 5 17 00:10 balloon -> 1st Diag x 20 Balloon ([id number]) 10:59:34 Reinflate Aorta Left EUPHORA 2.0 6 17 00:10 balloon -> 1st Diag x 20 Balloon ([id number]) 10:59:54 Reinflate Aorta Left EUPHORA 2.0 7 19 00:10 balloon -> 1st Diag x 20 Balloon ([id number]) 11:03:05 Reinflate Aorta Left EUPHORA 2.0 8 1 00:10 balloon -> 1st Diag x 20 Balloon ([id number]) Device Usage Item Name Manufacture Quantity Catalog Number Hospital Part Current Min imal Lot# / Charge Number Stock Stock Serial# Code ACIST Acist 1 04056 182806 289353 949885 20 Syringe Qnary (53626) Wowboard Bag Decanter Microtek 1 330589 40725 747994 5 () Medical Inc. ACIST Hand Acist 1 80474 746291 415566 288027 5 Control Qnary (87216) Systems Inc ACIST Acist 1 41307 512474 949112 554515 [address] [facility] Medical (11573) Systems Inc Tegaderm 4 x 3M 1 1626W 813572 579030 672675 5 4 (1626W) Medline Cath Cardinal 1 [id number] 074137 82184 053309 5 Pack Health ([id number]) SHEATH 5FR Terumo 1 KTH710 922002 725963 591439 40 [employer] (SZW636) DIAGNOSTIC [facility] 1 406357 064838 515664 610862 30 WIRE .035 260cm J wire (966100) PERCUTANEOUS [facility] 1 R04658 181717 037114 5 ENTRY 19GA needle DIAGNOSTIC Cardinal 1 DM3944 564913 13699 516730 30 Multipack Health 5Fr catheter set (FZ3199) MULTIPACK Cardinal 1 021408 5 Pigtail 5 Fr Health catheter MULTIPACK JL Cardinal 1 141924 5 4.0 5Fr Health catheter DIAGNOSTIC Cardinal 1 409686Y 721653 229602 314572 15 AR MOD 5Fr Health Catheter (050088I) INFLATOR NuMedii 1 PS2920 818718 822314 421302 15 NuMedii Medical BasixCompak (QL8245) SHEATH 6FR Terumo 1 YMT676 631843 091535 112308 [employer] (SJO557) GUIDE 6FR AR Medtronic 1 ZL5QG69 986172 30378 103839 1 2.0 catheter (HS6XZ02) CHOICE PT [place] Varina 1 [id number] 106706 490590 926574 5 Extra Scientific Support 182cm wire (6672296L9) CHOICE PT [place] Varina 1 [id number] 643842 664041 768324 5 Extra Scientific Support J 300cm guide wire ([id number]) EMERGE OTW [place] Varina 1 [id number] 305587 982478 777088 5 [id number] 1.5 x 20 Scientific balloon ([id number]) EUPHORA 2.0 Medtronic 1 [id number] 165034 000537 716338 5 [id number] x 20 Balloon ([id number]) EXOSEAL 6Fr Cardinal 1 EX600 661445 343898 003790 10 (EX600) Health Signature Audit [place] Stage Time Signature Unsigned Intra-Procedure 01/12/2018 Caty Valencia 11:14:13 AM RT(R) Signatures Monitor : Caty Valencia Signature : RT Date : Time : [place] [id number] [place] [address]
--- NOTE | ~2018-01-11 | DS ---
PATIENT:LEONCIO OLIVER :33 MEDICAL RECORD: [id number] DISCHARGE SUMMARY ADMISSION DATE: 01/12/18 DISCHARGE DATE: 01/13/18 DATE OF DISCHARGE: 01/13/2018. DISCHARGE DIAGNOSES: 1. Acute closure of LAD diagonal after patent vein graft. 2. Coronary artery disease. 3. Hypertension. 4. Hyperlipidemia. HOSPITAL COURSE: Mr. Oliver presents with acute coronary syndrome, found to have acute closure of the diagonal after the patent vein graft that was stented earlier in the week. He is a Plavix nonresponder. He underwent successful PTCA and reopening of this, was changed to Brilinta. Will follow up with [facility] in 1 month. TRANSINT:[id number] Voice Confirmation ID: [id number] DOCUMENT ID: [id number] LEYLA LOPEZ MD at 1202 CC: [id number] DICTATION DATE: 01/14/18 0938 C ARCHITECT: 01/14/18 1258 DIS IN 01/13/18 [facility] [address] [place] [address]
--- NOTE | ~2018-01-11 | OP ---
PATIENT NAME: LEONCIO OLIVER MEDICAL RECORD: [id number] :33 LOCATION:[facility] ADMISSION DATE:01/12/18 SURGEON: LEYLA LOPEZ MD DATE OF OPERATION: 01/12/2018 PROCEDURES: 1. PTCA, LAD diagonal through the saphenous vein graft. 2. Left heart catheterization. 3. Selective coronary angiography. 4. Vein graft angiography. 5. BETANCUR angiography. INDICATION: Angina and coronary artery disease. PROCEDURE IN DETAIL: After informed consent was obtained and after detailed explanation of risks, benefits as well as alternative therapies, the patient elected to proceed with angiogram and angioplasty. The right femoral area was prepped and draped in normal sterile fashion. Right femoral artery was cannulated via modified Seldinger technique with placement of a 6-Swazi sheath. All catheters exchanged through this sheath. FINDINGS: The left ventriculogram was performed in standard 30-degree ARREOLA view, reveals good cardiac wall motion throughout all segments. Overall ejection fraction estimated at 60%. SELECTIVE CORONARY ANGIOGRAPHY: 1. Left main is with no significant angiographic disease. 2. Left anterior descending is totally occluded. 3. BETANCUR is not grafted to the LAD. 4. Vein graft to the LAD and LAD diagonal is patent; however, the diagonal portion of this is closed with thrombus burden. 5. The left circumflex shows mild irregularities, but no flow-limiting stenosis. 6. The right coronary has mild irregularities, but no flow-limiting stenosis. PTCA OF THE LAD DIAGONAL: The balloons used were 1.5 and 2.0 balloon. Result was 0% residual stenosis with advent of RAHUL-3 flow. IMPRESSION: Successful percutaneous transluminal coronary angioplasty for acute thrombosis of the left anterior descending diagonal previously placed stents going from 100% initial stenosis to 0% residual. TRANSINT:[id number] Voice Confirmation ID: [id number] DOCUMENT ID: [id number] LEYLA LOPEZ MD at 1202 CC: [id number] DICTATION DATE: 01/12/18 1114 AFTER SCHOOL TEACHER: 01/12/18 1133 DIS IN 01/13/18 [place] [address]
[~2018-01-11 15:09] MED LIST changes: -ANORO ELLIPTA1 EACH INH; -BRILINTA90 MG PO; -EFFIENT10 MG PO; -FUROSEMIDE20 MG PO; -LEVAQUIN750 MG PO; -LEVOTHYROXINE50 MCG PO; -PROAIR HFA8.5 GM INH; -PROTONIX40 MG PO; -STERAPRED DS 1010 MG PO
[2018-01-11 16:12] LABS: BASOPHILS 0.1 % (0-2); EOSINOPHILS 0.3 % (0-7); HEMATOCRIT 44.3 % (42.0-54.0); HEMOGLOBIN 14.8 g/dL (13.5-17.5); IMMATURE GRANULOCYTES 0.3 % (0-5); LYMPHOCYTES 9.6 % (15-50); MCH 30.7 pg (26.0-34.0); MCHC 33.4 g/dL (31.0-37.0); MCV 91.9 fL (80.0-100.0); MEAN PLATELET VOLUME 9.3 fL (7.4-10.4); NEUTROPHILS 78.7 % (40-80); PLATELET COUNT 141 10x3/uL (130-400); RBC 4.82 10x6/uL (4.20-6.10); RDW 13.7 % (11.5-14.5); WBC 7.1 10x3/uL (4.8-10.8)
[2018-01-11 16:26] LABS: ALBUMIN 3.3 g/dL (3.4-5.0); ALKALINE PHOSPHATASE 90 U/L (46-116); ALT (SGPT) 20 U/L (10-68); BILIRUBIN - TOTAL 0.52 mg/dL (0.2-1.3); CALC OSMOLALITY 278 mosm/kg (275-300); CALCIUM 9.4 mg/dL (8.5-10.1); CARBON DIOXIDE 25.5 mmol/L (21.0-32.0); CHLORIDE - SERUM 108 mmol/L (98-107); CREATININE - SERUM 0.9 mg/dL (0.6-1.3); GLUCOSE 116 mg/dL (74-106); PROTEIN - SERUM 6.7 g/dL (6.4-8.2); SODIUM 140 mmol/L (136-145); UREA NITROGEN 10 mg/dL (7-18); eGFR NON AFRICAN AMERICAN 85 mL/min (90-120)
[2018-01-11 16:41] LABS: CHOL - HDL RATIO 7.9 ratio (2.3-4.9); CHOLESTEROL, TOTAL 190 mg/dL (0-200); CKMB 1.6 U/L (0.0-3.6); CREATINE KINASE 36 UL (21-232); HDL CHOLESTEROL 24 mg/dL (32-96); LDL CHOLESTEROL 146 mg/dL (0-100); LDL-HDL RATIO 6.1 ratio (1.5-3.5); TRIGLYCERIDE 104 mg/dL (30-200)
[2018-01-11 16:43] LABS: TROPONIN-I 0.109 ng/mL (0.000-0.060)
[2018-01-12] VITALS (19 sets, daily range): BP systolic 108–165; BP diastolic 47–76; Ht 180.3 cm; Wt 72.6 kg
[2018-01-12 00:41] LABS: APTT 34.1 SECONDS (22.8-39.4); INR 0.99 (0.85-1.17); PROTIME 12.7 SECONDS (11.6-15.0)
[2018-01-12 00:51] LABS: PLT FUNCT.(P2Y12) PLAVIX 196 PRU (194-418)
[2018-01-12 06:28] LABS: BASOPHILS 0.2 % (0-2); EOSINOPHILS 0.6 % (0-7); HEMATOCRIT 44.3 % (42.0-54.0); HEMOGLOBIN 14.5 g/dL (13.5-17.5); IMMATURE GRANULOCYTES 0.2 % (0-5); LYMPHOCYTES 9.8 % (15-50); MCH 30.2 pg (26.0-34.0); MCHC 32.7 g/dL (31.0-37.0); MCV 92.3 fL (80.0-100.0); MEAN PLATELET VOLUME 9.5 fL (7.4-10.4); MONOCYTES 15.7 % (2-11); NEUTROPHILS 73.5 % (40-80); PLATELET COUNT 136 10x3/uL (130-400); RDW 13.7 % (11.5-14.5)
[2018-01-12 07:06] LABS: CALC OSMOLALITY 277 mosm/kg (275-300); CALCIUM 8.9 mg/dL (8.5-10.1); CARBON DIOXIDE 26.1 mmol/L (21.0-32.0); CHLORIDE - SERUM 106 mmol/L (98-107); CKMB 233.3 U/L (0.0-3.6); CREATININE - SERUM 0.9 mg/dL (0.6-1.3); GLUCOSE 106 mg/dL (74-106); SODIUM 140 mmol/L (136-145); UREA NITROGEN 9 mg/dL (7-18); eGFR NON AFRICAN AMERICAN 85 mL/min (90-120)
[2018-01-12 07:08] LABS: CREATINE KINASE 1063 UL (21-232); TROPONIN-I 25.617 ng/mL (0.000-0.060)
[2018-01-13 03:00] VITALS: BP 107/55
[2018-01-13] MEDS ORDERED: BRILINTA90 MG PO (10:14)
== END 2018-01-13 11:10 | disposition home or self-care (01) | DRG 250 ==
LOC: D.ER 15:09 → D.EDHOLD 01-12 01:57 → D.CVICU 01-12 01:57 → D.SDCHOLD 01-12 13:29 → D.CVICU 01-12 13:29
PROVIDERS: Emergency Medicine; Family Medicine; Internal Medicine Interventional Cardiology; Physician Assistant Medical
PROC: B2121ZZ Fluoroscopy of Single Coronary Artery Bypass Graft using Low Osmolar Contrast (ICD-10-PCS; 2018-01-12)
PROC: B2181ZZ Fluoroscopy of Left Internal Mammary Bypass Graft using Low Osmolar Contrast (ICD-10-PCS; 2018-01-12)
PROC: B2151ZZ Fluoroscopy of Left Heart using Low Osmolar Contrast (ICD-10-PCS; 2018-01-12)
PROC: B2111ZZ Fluoroscopy of Multiple Coronary Arteries using Low Osmolar Contrast (ICD-10-PCS; 2018-01-12)
PROC: 02703ZZ Dilation of Coronary Artery, One Artery, Percutaneous Approach (ICD-10-PCS; principal; 2018-01-12 10:07)
PROC: 4A023N7 Measurement of Cardiac Sampling and Pressure, Left Heart, Percutaneous Approach (ICD-10-PCS; 2018-01-12 10:07)
DX: I97.190 Other postprocedural cardiac functional disturbances following cardiac surgery (principal); I21.A9 Other myocardial infarction type; T82.867A Thrombosis due to cardiac prosthetic devices, implants and grafts, initial encounter; I25.110 Atherosclerotic heart disease of native coronary artery with unstable angina pectoris; I25.720 Atherosclerosis of autologous artery coronary artery bypass graft(s) with unstable angina pectoris; I10 Essential (primary) hypertension; E78.5 Hyperlipidemia, unspecified; Y83.8 Other surgical procedures as the cause of abnormal reaction of the patient, or of later complication, without mention of misadventure at the time of the procedure; Z95.1 Presence of aortocoronary bypass graft; Z95.5 Presence of coronary angioplasty implant and graft

== ENCOUNTER 2018-02-13 07:29 | Outpatient (CLI) | payer MEDICARE ==
[~2018-02-13] VITALS: Ht 180.3 cm; Wt 74.1 kg
--- NOTE | ~2018-02-13 | OP ---
PATIENT NAME: LEONCIO OLIVER MEDICAL RECORD: [id number] :33 LOCATION:D.CAT ADMISSION DATE: SURGEON: LEYLA LOPEZ MD DATE OF OPERATION: 02/13/2018 PROCEDURES: 1. Left heart catheterization. 2. Selective coronary angiography. 3. Left ventriculogram. 4. Vein graft angiography. 5. Four-vessel carotid vertebral angiography. INDICATION: Angina, coronary artery disease, carotid vascular disease, unsteady gait. DESCRIPTION OF PROCEDURE: After informed consent was obtained and after detailed description of risks, benefits as well as alternative therapies, the patient elected to proceed with angiogram and heart catheterization. The right femoral area is prepped and draped in normal sterile fashion. Right femoral artery was cannulated via modified Seldinger technique with placement of 5-Slovak sheath. All catheters exchanged through this sheath. FINDINGS: There was subselection of each subclavian as well as the left carotid. RIGHT SIDE: The common internal and external carotids have mild plaquing, none greater than 20%, no flow-limiting stenosis. Vertebral arteries devoid of disease. LEFT SYSTEM: The common internal and external carotids have mild plaquing, none greater than 20%. The vertebral artery is small, but nondiseased. Left ventriculogram was performed in standard 30-degree ARREOLA view, reveals good cardiac wall motion throughout all segments. Overall ejection fraction estimated at 55%. SELECTIVE CORONARY ANGIOGRAPHY: 1. Left main is with no significant angiographic disease. 2. Left anterior descending is totally occluded proximally. 3. The left circumflex has mild irregularities, but no flow-limiting stenosis. 4. Right coronary is small, nondominant. 5. Vein graft to the left anterior descending and LAD diagonal is widely patent and previously placed stents in the LAD diagonal are widely patent. OVERALL IMPRESSION: Wide patency of the vein graft to the LAD, wide patency of the previously placed stents, normal left ventricular systolic function. No significant carotid vascular disease. TRANSINT:[id number] Voice Confirmation ID: [id number] DOCUMENT ID: [id number] OPERATIVE REPORT [id number] LEONCIO OLIVER LEYLA LOPEZ MD at 0956 CC: [id number] DICTATION DATE: 02/13/18 0942 SECURITY MANAGEMENT SPECIALIST: 02/13/18 1029 DEP CLI 02/13/18 [facility] [address] [place] [address]
--- NOTE | ~2018-02-13 | HEMODYNAMI ---
PATIENT:LEONCIO OLIVER MEDICAL RECORD: [id number] : 33 LOCATION:DGINNY ADMISSION DATE: 02/13/18 Generatedon:02/13/20189:37 Patient name: LEONCIO OLIVER Patient #: [id number] SSN: : 1935 Date of study: 02/13/2018 Page: Of Hemodynamic Procedure Report Patient Data Patient Demographics Procedure consent was obtained First Name: LEONCIO Gender: Male Last Name: MELODY : 1935 [facility] Initial: R Age: 83 year(s) Patient #: [id number] Race: Additional ID: [id number] Contact details [address]: [address] [place] [address] State: [place] City: [place] Zip code: [address] Past Medical History Allergies Allergen Reaction Date Comments Reported Other allergy 02/13/2018 Plavix Admission Admission Data Admission Date: 02/13/2018 Admission Time: 7:29 Admit Source: Other Lab Results Lab Result Date: 02/13/2018 Lab Result Time: 8:00 Biochemistry Name Units Result Min Max BUN mg/dl 13 --(--*-)-- 7 18 Creatinine mg/dl 1 --(--*-)-- 0.6 1.3 CBC Name Units Result Min Max Hematocrit % 43.3 --(*---)-- 42 54 Hemoglobin g/dl 14.3 --(*---)-- 13.5 17.5 Procedure Procedure Types Cath Procedure Diagnostic Procedure LHC LHC w/Coronaries w/Grafts Peripheral Cath Diagnostic Procedure Cath Peripheral Four Vessel Arteriogram Procedure Description Procedure Date Procedure Date: 02/13/2018 Procedure Start Time: 9:25 Procedure End Time: 9:36 Procedure Staff Name Function Lg Bunn MD Performing Physician Pranay Swanson RT Monitor Caty Valencia RT Scrub Elvin Zhong RN Nurse Procedure Data Cath Procedure Fluoroscopy Diagnostic fluoroscopy Total fluoroscopy Time: 2.4 time: 2.4 min min Diagnostic fluoroscopy Total fluoroscopy dose: 336 dose: 336 mGy mGy Contrast Material Contrast Material Type Amount (ml) Isovue 300 67 Entry Location Entry Primary Successful Side Size Upsize Upsize Entry Closure Succes sful Closure Location (Fr) 1 (Fr) 2 (Fr) Remarks Device Remarks Femoral Right 5 Fr Exoseal artery Estimated blood loss: 5 ml Diagnostic catheters Device Type Used For End Catheter Placement MULTIPACK JL 4.0 5Fr Procedure catheter MULTIPACK Pigtail 5 Fr Procedure catheter MULTIPACK 3DRC 5Fr Procedure catheter Procedure Complications No complications Procedure Medications Medication Administration Route Dosage Oxygen etCO2 Nasal cannula 2 l/min Heparin Flush Bag added to field 2 bags (1000units/500ml NS) 0.9% NaCl I.V. 100 ml/hr Fentanyl I.V. 50 mcg Versed I.V. 1 mg Fentanyl I.V. 25 mcg Versed I.V. 0.5 mg Hemodynamics Rest HGB: 14.3 (g/dl) Heart Rate: 64 (bpm) Snapshots Pre Cath Intra NCS Post Cath Vital Signs Time Heart Resp SPO2 etCO2 NIBP (mmHg) Rhythm Pain Sedation Rate (ipm) (%) (mmHg) Status Level (bpm) 8:58:15 65 22 97 0 140/65(110) NSR 0 (11) 10(A) , No pain 9:02:52 64 20 97 28.2 142/68(110) NSR 0 (11) 10(A) , No pain 9:07:28 63 20 97 0 135/68(101) NSR 0 (11) 10(A) , No pain 9:12:05 61 19 98 0 137/66(106) NSR 0 (11) 10(A) , No pain 9:16:42 62 19 94 0 139/64(104) NSR 0 (11) 10(A) , No pain 9:21:18 63 18 94 0 129/65(104) NSR 0 (11) 10(A) , No pain 9:25:50 69 16 98 33.5 124/72(112) NSR 0 (11) 9(A) , No pain 9:30:25 63 16 95 0 137/70(111) NSR 0 (11) 9(A) , No pain 9:35:03 64 16 98 29 147/70(116) NSR 0 (11) 9(A) , No pain Medications Time Medication Route Dose Verified Delivered Reason Notes Effec tiveness by by 9:00:07 Oxygen etCO2 2 Lg [place] Per Nasal l/min Sepideh Zhong RN physician cannula 9:00:17 Heparin Flush added 2 Lg [place] used for Bag to bags Sepideh Zhong dental equipment mechanic (1000units/500ml field NS) 9:00:27 0.9% NaCl I.V. 100 Lg [place] Per ml/hr Sepideh Zhong RN physician 9:21:15 Fentanyl I.V. 50 Lg [place] for mcg Sepideh Zhong RN sedation 9:21:23 Versed I.V. 1 mg Lg [place] for Sepideh Zhong RN sedation 9:25:17 Fentanyl I.V. 25 Lg [place] for mcg Sepideh Zhong RN sedation 9:25:22 Versed I.V. 0.5 Lg [place] for mg Sepideh Zhong RN sedation Procedure Log Time Note 8:32:09 Caty Valencia RT(R) sent for patient. Start room use. 8:41:47 Informed consent obtained and on chart 8:41:50 Admit Source: Other 8:42:07 Diagnostic Cath status Elective 8:42:09 Time tracking: Regular hours 8:42:13 Plan of Care:Hemodynamics will remain stable., Cardiac rhythm will remain stable., Comfort level will be maintained., Respiratory function will remain adequate., Patient/ family verbilizes understanding of procedure., Procedure tolerated without complication., Recovers from procedure without complications.. 8:42:38 H&P Date Dictated: 02/12/2018 Within 30 days and on chart., H&P Addendum completed by physician on day of procedure. (MUST COMPLETE FOR ALL OUTPATIENTS). 8:46:27 Patient allergic to Other allergyPlavix 8:47:16 Lab Result : BUN 13 mg/dl 8:47:16 Lab Result : Hemoglobin 14.3 g/dl 8:47:16 Lab Result : Creatinine 1 mg/dl 8:47:16 Lab Result : Hematocrit 43.3 % 8:47:19 Lab results completed and on chart. 8:50:35 Patient received from Pre/Post Procedure Room to CCL 1 Alert and oriented. Tansferred to table in Supine position. 8:50:36 Warm blankets applied, and kuldip hugger turned on for patient comfort. 8:50:36 Correct patient and procedure confirmed by team. 8:50:37 ECG and BP/O2 sat monitors applied to patient. 8:57:25 Vital chart was started 8:58:09 Baseline sample Acquired. 8:58:15 Rhythm: sinus rhythm 8:59:09 Pre-procedure instructions explained to patient. 8:59:10 Pre-op teaching completed and patient verbalized understanding. 8:59:11 Family in waiting room. 8:59:13 Patient NPO since Midnight. 8:59:15 Is the patient allergic to Iodine/contrast media? No. 8:59:16 Is patient on blood thinner?Yes 8:59:19 ACC The patient was administered the following blood thiners within the last 24 hours: ACCEffient 8:59:20 Patient diabetic? No. 8:59:23 Previous problem with sedation/anesthesia? No ? 8:59:25 Snore? No 8:59:26 Sleep apnea? No 8:59:27 Deviated septum? No 8:59:28 Opens mouth fully? Yes 8:59:29 Sticks out tongue? Yes 8:59:30 Airway obstruction? No ? 9:00:07 Oxygen 2 l/min etCO2 Nasal cannula was administered by Elvin Zhong RN; Per physician; 9:00:17 Heparin Flush Bag (1000units/500ml NS) 2 bags added to field was administered by Elvin Zhong RN; used for procedure; 9:00:27 0.9% NaCl 100 ml/hr I.V. was administered by Elvin Zhong RN; Per physician; 9:02:30 Dentures? Yes in tight 9:02:32 Pre procedure: right dorsailis pedis pulse 2+ Normal; easily identifiable; not easily obliterated 9:02:34 Patient pain scale 0/10 ?. 9:02:43 IV patent on arrival in left forearm with 0.9% NaCl at O. 9:02:46 Right groin area was prepped with chlora-prep and draped in sterile fashion 9:02:47 Alarms reviewed by R. N. 9:02:48 Sharps counted by scrub and verified by R.N. 9:02:50 Use device set Femoral Dx 9:02:51 ACIST Syringe (77037) opened to sterile field. 9:02:51 Bag Decanter (2001S) opened to sterile field. 9:02:52 Medline Cath Pack ([id number]) opened to sterile field. 9:02:53 ACIST Hand Control (67436) opened to sterile field. 9:02:53 ACIST Manifold (37198) opened to sterile field. 9:02:54 Tegaderm 4 x 4 (1626W) opened to sterile field. 9:02:55 PERCUTANEOUS ENTRY 19GA needle opened to sterile field. 9:02:56 DIAGNOSTIC WIRE .035 260cm J wire (304249) opened to sterile field. 9:02:58 DIAGNOSTIC Multipack 5Fr catheter set ([id number]) opened to sterile field. 9:03:07 SHEATH Prelude 5Fr 0.035 ([id number]-2B-94-035) opened to sterile field. 9::58 Zero performed for pressure channel P1 9::53 Physician arrived 9::54 --------ALL STOP TIME OUT------ 9::54 Final Timeout: patient, procedure, and site verified with staff and physician. All members of the team are in agreement. 9:20:56 Right groin site verified by team. 9::58 Physical assessment completed. ASA score P 2 - A patient with mild systemic disease as per Lg Bunn MD. 9:21:04 Sedation plan: IV Moderate Sedation Medication:Versed, Fentanyl 9:21:15 Fentanyl 50 mcg I.V. was administered by Elvin Zhong RN; for sedation; 9::23 Versed 1 mg I.V. was administered by Elvin Zhong RN; for sedation; 9::43 Zero performed for pressure channel P1 9:25:17 Fentanyl 25 mcg I.V. was administered by Elvin Zhong RN; for sedation; 9:25:22 Versed 0.5 mg I.V. was administered by Elvin Zhong RN; for sedation; ::33 Procedure started. 9:25:33 Full Disclosure recording started 9::37 Local anesthetic to right femoral artery with Lidocaine 2% by Lg Bunn MD.INITIAL ACCESS ONLY 9:26:15 A 5 Fr sheath was inserted into the Right Femoral artery 9::24 A MULTIPACK Pigtail 5 Fr catheter was advanced over the wire and used for Procedure. 9::28 LV gram done using ARREOLA 9:: Injector settings: Ml/sec: 10, Volume: 20, 9::54 EF : 55 % 9::56 Catheter exchanged over wire. 9:27:02 A MULTIPACK JL 4.0 5Fr catheter was advanced over the wire and used for Procedure. 9:28:22 LCA angiography performed. 9:30:09 Catheter exchanged over wire. 9:30:12 5Fr. ALEM II catheter was advanced over the wire and used for Procedure. 9:30:20 Catheter exchanged over wire. 9:30:26 A MULTIPACK 3DRC 5Fr catheter was advanced over the wire and used for Procedure. 9:31:08 Right subclavian angiography performed 9:31: Right carotid angiography performed. 9:31:21 Left carotid angiography performed. 9:31:35 Left subclavian angiography performed 9:31:43 Catheter removed. 9:32:09 EXOSEAL 5Fr (EX500) opened to sterile field. 9:33:35 Sheath removed intact; hemostasis achieved with Exoseal to the Right Femoral artery. 9:33:36 Procedure ended.(Physican Out) 9:35:03 Fluoroscopy time 02.40 minutes. 9:35:06 Flurop Dose total: 336 9:35:06 Fluoroscopy dose: 336 mGy 9:35:14 Contrast amount:Isovue 300 67ml. 9:35:16 Sharps counted by scrub and verified by R.N. 9:35:18 Insertion/operative site no bleeding no hematoma. 9:35:21 Post-op/insertion site Right Femoral artery dressed using a 4 x 4 and Tegaderm. 9:35:24 Post right femoral artery:stable, soft, clean and dry 9:35:25 Post Procedure Pulses reassessed and unchanged 9:35:27 Post-procedure physical assessment completed. ASA score P 2 - A patient with mild systemic disease as per Lg Bunn MD. 9:35:29 Post procedure rhythm: unchanged. 9:35:32 Estimated blood loss: 5 ml 9:35:33 Post procedure instruction explained to patient.Patient verbalizes understanding. 9:35:33 Patient needs reinforcement of post procedure teaching. 9:35:58 Procedure type changed to Cath procedure, Diagnostic procedure, LHC, LHC w/Coronaries w/Grafts, Peripheral Cath Diagnostic Procedure, Cath Peripheral, Four Vessel Arteriogram 9:36:32 Procedure and supply charges have been captured, reviewed, submitted and are correct. 9:36:35 Procedure Complication : No complications 9:36:36 Vital chart was stopped 9:36:37 See physician's report for complete and final results. 9:36:38 Report given to Pre/Post Procedure Room. 9:36:41 Patient transfered to Pre/Post Procedure Room with Stretcher. 9:36:44 Procedure ended. 9:36:44 Full Disclosure recording stopped 9:36:47 End room use (Document Last) Device Usage Item Name Manufacture Quantity Catalog Number Hospital Part Current M inimal Lot# / Charge Number Stock Stock Serial# Code ACIST Syringe Acist 1 34254 600258 978225 290393 2 0 (85488) Medical Systems Inc Bag Decanter Microtek 1 2001S 298812 04401 638840 5 (2001S) Medical Inc. Medline Cath Cardinal 1 [id number] 535630 76636 410455 5 Pack Health ([id number]) ACIST Hand Acist 1 15616 992569 131671 202109 5 Control (71954) Medical Systems Inc ACIST Manifold Acist 1 29914 944546 135037 048642 5 (17427) Medical Systems Inc Tegaderm 4 x 4 3M 1 1626W 153285 594210 996758 5 (1626W) PERCUTANEOUS Cook Medical 1 [id number] 839035 216845 5 ENTRY 19GA needle DIAGNOSTIC WIRE [facility] 1 895515 274788 273005 339331 3 0 .035 260cm J wire (355888) DIAGNOSTIC Cardinal 1 IZ4066 369533 96990 282676 3 0 Multipack 5Fr Health catheter set (UO5163) SHEATH Prelude Merit 1 NRM-2D-36-035 098640 456079 962542 5 5Fr 0.035 Medical (VZS-1T-07-035) MULTIPACK JL Cardinal 1 [id number] 5 4.0 5Fr Health catheter MULTIPACK Cardinal 1 [id number] 5 Pigtail 5 Fr Health catheter MULTIPACK 3DRC Cardinal 1 215070 5 5Fr catheter Health EXOSEAL 5Fr Cardinal 1 EX500 114873 750261 126630 1 0 (EX500) Health Signature Audit [place] Stage Time Signature Unsigned Intra-Procedure 02/13/2018 Pranay Swanson 9:37:31 AM RT(R) Signatures Monitor : Pranay Swanson RT Signature : Date : Time : [id number] [place] [address]
[~2018-02-13 07:29] MED LIST changes: +BRILINTA90 MG PO
[2018-02-13] MEDS ORDERED: EFFIENT10 MG PO (07:43)
[2018-02-13] MEDS ORDERED: PROAIR HFA8.5 GM INH (07:44)
[2018-02-13] MEDS ORDERED: LEVOTHYROXINE50 MCG PO (07:44)
[2018-02-13] MEDS ORDERED: ANORO ELLIPTA1 EACH INH (07:44)
[2018-02-13] MEDS ORDERED: ISOSORBIDE MONO30 M1 PO (07:45)
[2018-02-13 07:57] VITALS: BP 130/62; Ht 180.3 cm; Wt 74.1 kg
[2018-02-13 08:23] LABS: BASOPHILS 0.2 % (0-2); EOSINOPHILS 1.5 % (0-7); HEMATOCRIT 43.3 % (42.0-54.0); HEMOGLOBIN 14.3 g/dL (13.5-17.5); IMMATURE GRANULOCYTES 0.4 % (0-5); LYMPHOCYTES 17.2 % (15-50); MEAN PLATELET VOLUME 9.4 fL (7.4-10.4); MONOCYTES 13.3 % (2-11); NEUTROPHILS 67.4 % (40-80); PLATELET COUNT 144 10x3/uL (130-400); RBC 4.76 10x6/uL (4.20-6.10); RDW 13.6 % (11.5-14.5); WBC 5.5 10x3/uL (4.8-10.8)
[2018-02-13 08:38] LABS: CALC OSMOLALITY 275 mosm/kg (275-300); CARBON DIOXIDE 24.7 mmol/L (21.0-32.0); CHLORIDE - SERUM 109 mmol/L (98-107); GLUCOSE 102 mg/dL (74-106); POTASSIUM - SERUM 4.6 mmol/L (3.5-5.1); SODIUM 138 mmol/L (136-145); UREA NITROGEN 13 mg/dL (7-18); eGFR NON AFRICAN AMERICAN 76 mL/min (90-120)
== END 2018-02-13 12:34 | disposition home or self-care (01) ==
LOC: D.CATH 07:29
PROVIDERS: Internal Medicine Interventional Cardiology
DX: I25.119 Atherosclerotic heart disease of native coronary artery with unspecified angina pectoris (principal); Z95.5 Presence of coronary angioplasty implant and graft; Z95.1 Presence of aortocoronary bypass graft; R26.81 Unsteadiness on feet; Z01.812 Encounter for preprocedural laboratory examination

== ENCOUNTER 2018-03-23 10:05 | Inpatient (IN) | payer MEDICARE ==
[~2018-03-23] VITALS: Ht 177.8 cm; Wt 67.3 kg
--- NOTE | ~2018-03-23 | CN ---
PATIENT NAME:LEONCIO ARMSTRONG MEDICAL RECORD: [id number] : 34 LOCATION:. D.2134 ADMIT DATE: 03/23/18 ACCOUNT: [id number] CONSULTING PHYSICIAN: JAIME PUTNAM MD REFERRING PHYSICIAN: KAROLYN GUZMÁN MD DATE OF CONSULTATION: 03/24/2018 CONSULT REQUESTING PHYSICIAN: Karolyn Guzmán MD REASON FOR CONSULTATION: Pneumonia, shortness of breath. HISTORY OF PRESENT ILLNESS: Mr. Armstrong is an 83-year-old very pleasant gentleman. He is not feeling well for the last few weeks. He was seen in the ER. Chest radiograph showed bilateral lower lobe infiltrate. He is coughing with white yellow color sputum production. He is feeling feverish, but there are no chills. No night sweats. There is no weight loss. REVIEW OF SYSTEMS: Mainly in the history of present illness. PAST MEDICAL HISTORY: 1. Hypothyroidism. 2. Coronary artery disease. 3. Gastroesophageal reflux disease. 4. Hypertension. PAST SURGICAL HISTORY: 1. He has a CABG 20 years ago. 2. Back surgery. 3. Hemorrhoidectomy. ALLERGIES: There are no known drug allergies. MEDICATIONS: On [employer] reviewed. PERSONAL AND SOCIAL HISTORY: The patient never smoked. He is a nondrinker. He does not remember he has worked with asbestos. FAMILY HISTORY: Significant for cardiovascular disease. PHYSICAL EXAMINATION: GENERAL: Now, the patient is lying comfortably in bed. He is not in acute distress. VITAL SIGNS: The blood pressure is 107/50, pulse is 90, respiration is 18, temperature 97.3, SPO2 is 96% on 2 liters nasal cannula. HEENT: Conjunctivae are pink. Sclerae are not icteric. NECK: Supple, no JVD. CHEST: Excursion is minimal on both sides. There are bilateral crackles. No wheezing. HEART: Rhythm regular, normal sound, no murmur. ABDOMEN: Soft, bowel sounds present. No hepatosplenomegaly. RECTAL: Deferred. EXTREMITIES: No cyanosis, no clubbing, no pedal edema. SKIN: Warm, normal turgor. CENTRAL NERVOUS SYSTEM: The patient is awake and alert. There are no obvious intracranial abnormality. The gait was not tested. CONSULT REPORT [id number] LEONCIO ARMSTRONG IMAGING: Chest radiograph, there is bilateral lower lobe infiltrate. There is also calcified pleural plaques. OTHER LABORATORY DATA: CBC: The WBC is 6.4, hemoglobin 14.3, hematocrit 43.1, the platelet count 201. Chemistry: Sodium 141, potassium 3.7, BUN is 17, creatinine 1.5. The proBNP is 487. Troponin is 0.01. IMPRESSION: 1. Acute hypoxic respiratory failure secondary to pneumonia, possible associated pulmonary edema. 2. Acute cough. 3. Dyspnea on exertion. 4. 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 5. Gastroesophageal reflux disease. 6. Coronary artery disease status post stent placement and CABG. RECOMMENDATION: 1. Continue Levaquin IV. I will add Rocephin IV, guaifenesin DM 2 tablets b.i.d. Check the CT scan of the chest for evaluation of the pleural plaques. 2. GERD precaution given. 3. Albuterol/ipratropium nebulizer. 4. Continue Protonix. Dr. Guzmán, thank you for involving me in the care of Mr. Armstrong. TRANSINT:[id number] Voice Confirmation ID: [id number] DOCUMENT ID: [id number] JAIME PUTNAM MD CC: DYLON SUE MD [id number] DICTATION DATE: 03/24/18 170 SUPERVISOR POULTRY PROCESSING: 03/24/18 173 ADM IN [facility] [address] [id number]
[~2018-03-23 10:05] MED LIST changes: +ANORO ELLIPTA1 EACH INH; +EFFIENT10 MG PO; +LEVOTHYROXINE50 MCG PO; +PROAIR HFA8.5 GM INH
[2018-03-23 10:43] LABS: APPEARANCE CLEAR (CLEAR); BILIRUBIN NEGATIVE (NEGATIVE); COLOR YELLOW (YELLOW); GLUCOSE NEGATIVE (NEGATIVE); KETONE NEGATIVE (NEGATIVE); NITRITE NEGATIVE (NEGATIVE); PROTEIN NEGATIVE (NEGATIVE); UROBILINOGEN NORMAL (NORMAL)
[2018-03-23 10:56] LABS: BASOPHILS 0.6 % (0-2); HEMATOCRIT 43.1 % (42.0-54.0); HEMOGLOBIN 14.3 g/dL (13.5-17.5); IMMATURE GRANULOCYTES 0.5 % (0-5); LYMPHOCYTES 10.6 % (15-50); MCH 29.3 pg (26.0-34.0); MCHC 33.2 g/dL (31.0-37.0); MCV 88.3 fL (80.0-100.0); MEAN PLATELET VOLUME 9.4 fL (7.4-10.4); MONOCYTES 16.2 % (2-11); NEUTROPHILS 70.1 % (40-80); RBC 4.88 10x6/uL (4.20-6.10); RDW 13.4 % (11.5-14.5); WBC 6.4 10x3/uL (4.8-10.8)
[2018-03-23 11:06] LABS: ALBUMIN 2.6 g/dL (3.4-5.0); ALKALINE PHOSPHATASE 93 U/L (46-116); ALT (SGPT) 22 U/L (10-68); CALC OSMOLALITY 282 mosm/kg (275-300); CALCIUM 9.7 mg/dL (8.5-10.1); CARBON DIOXIDE 28.7 mmol/L (21.0-32.0); CHLORIDE - SERUM 102 mmol/L (98-107); CREATININE - SERUM 1.5 mg/dL (0.6-1.3); GLUCOSE 93 mg/dL (74-106); POTASSIUM - SERUM 3.7 mmol/L (3.5-5.1); PROTEIN - SERUM 6.6 g/dL (6.4-8.2); SODIUM 141 mmol/L (136-145); UREA NITROGEN 17 mg/dL (7-18); eGFR NON AFRICAN AMERICAN 47 mL/min (90-120)
[2018-03-23 11:10] LABS: PLATELET COUNT 201 10x3/uL (130-400)
[2018-03-23 11:18] LABS: CKMB 1.1 U/L (0.0-3.6); CREATINE KINASE 44 UL (21-232); PRO BNP 487 pg/mL (0-450); TROPONIN-I 0.019 ng/mL (0.000-0.060)
[2018-03-23] MEDS ORDERED: PROTONIX40 MG PO (15:25)
[2018-03-23] MEDS ORDERED: FUROSEMIDE20 MG PO (15:26)
[2018-03-23 16:10] VITALS: BP 144/55; BMI 21.6
[2018-03-23 20:00] VITALS: BP 126/75
[2018-03-24] VITALS: BP 107/62
[2018-03-24 04:00] VITALS: BP 108/43
[2018-03-24 07:49] VITALS: BP 107/50
[2018-03-24 11:22] VITALS: BP 126/57
[2018-03-24 15:06] VITALS: BMI 21.6
[2018-03-24 15:22] VITALS: BP 101/56
[2018-03-24 20:00] VITALS: BP 102/55
[2018-03-24 22:41] LABS: ERYTHROCYTE SEDIMENTATION RATE 38 mm/hr (0-20)
[2018-03-25 04:00] VITALS: BP 121/48
[2018-03-25 07:03] LABS: BASOPHILS 0.2 % (0-2); EOSINOPHILS 2.3 % (0-7); HEMOGLOBIN 11.7 g/dL (13.5-17.5); IMMATURE GRANULOCYTES 0.7 % (0-5); LYMPHOCYTES 8.1 % (15-50); MCH 28.5 pg (26.0-34.0); MCHC 32.5 g/dL (31.0-37.0); MCV 87.8 fL (80.0-100.0); MEAN PLATELET VOLUME 9.7 fL (7.4-10.4); MONOCYTES 18.2 % (2-11); NEUTROPHILS 70.5 % (40-80); PLATELET COUNT 183 10x3/uL (130-400); RDW 13.6 % (11.5-14.5)
[2018-03-25 07:05] LABS: ANION GAP 12.3 mmol/L (8-16); CALCIUM 9.2 mg/dL (8.5-10.1); CARBON DIOXIDE 25.3 mmol/L (21.0-32.0); CREATININE - SERUM 1.4 mg/dL (0.6-1.3); POTASSIUM - SERUM 3.6 mmol/L (3.5-5.1)
[2018-03-25 07:09] LABS: WBC 4.3 10x3/uL (4.8-10.8)
[2018-03-25 07:59] VITALS: BP 129/76
[2018-03-25 11:35] VITALS: BP 126/72
[2018-03-25 15:33] VITALS: BP 113/53
[2018-03-25 20:00] VITALS: BP 114/74
[2018-03-26 04:00] VITALS: BP 117/63
[2018-03-26 06:02] LABS: BASOPHILS 0.4 % (0-2); EOSINOPHILS 3.3 % (0-7); HEMATOCRIT 38.5 % (42.0-54.0); HEMOGLOBIN 12.5 g/dL (13.5-17.5); IMMATURE GRANULOCYTES 0.6 % (0-5); LYMPHOCYTES 9.8 % (15-50); MCH 28.5 pg (26.0-34.0); MCHC 32.5 g/dL (31.0-37.0); MCV 87.9 fL (80.0-100.0); MEAN PLATELET VOLUME 9.6 fL (7.4-10.4); MONOCYTES 17.7 % (2-11); NEUTROPHILS 68.2 % (40-80); PLATELET COUNT 178 10x3/uL (130-400); RBC 4.38 10x6/uL (4.20-6.10); RDW 13.7 % (11.5-14.5); WBC 4.8 10x3/uL (4.8-10.8)
[2018-03-26 06:24] LABS: ANION GAP 12.3 mmol/L (8-16); CALCIUM 9.4 mg/dL (8.5-10.1); CARBON DIOXIDE 25.8 mmol/L (21.0-32.0); CREATININE - SERUM 1.2 mg/dL (0.6-1.3); POTASSIUM - SERUM 4.1 mmol/L (3.5-5.1)
[2018-03-26 08:35] VITALS: BP 124/57
[2018-03-26 11:42] VITALS: BP 133/66
[2018-03-26 13:23] VITALS: Ht 177.8 cm; Wt 67.3 kg
[2018-03-26 15:40] VITALS: BP 129/67
[2018-03-26 20:00] VITALS: BP 136/76
[2018-03-27 01:51] VITALS: BP 128/78
[2018-03-27 05:50] LABS: BASOPHILS 0 % (0-2); EOSINOPHILS 0 % (0-7); HEMOGLOBIN 12.9 g/dL (13.5-17.5); IMMATURE GRANULOCYTES 0.7 % (0-5); LYMPHOCYTES 10.2 % (15-50); MCH 28.4 pg (26.0-34.0); MCHC 33.1 g/dL (31.0-37.0); MEAN PLATELET VOLUME 9.7 fL (7.4-10.4); MONOCYTES 3.4 % (2-11); NEUTROPHILS 85.7 % (40-80); PLATELET COUNT 213 10x3/uL (130-400); RBC 4.54 10x6/uL (4.20-6.10); RDW 13.3 % (11.5-14.5); WBC 4.1 10x3/uL (4.8-10.8)
[2018-03-27 05:51] LABS: MCV 85.9 fL (80.0-100.0)
[2018-03-27 05:54] VITALS: BP 139/70
[2018-03-27 06:04] LABS: ANION GAP 14.2 mmol/L (8-16); CALCIUM 9.4 mg/dL (8.5-10.1); CREATININE - SERUM 1.1 mg/dL (0.6-1.3); POTASSIUM - SERUM 4.2 mmol/L (3.5-5.1)
[2018-03-27 08:18] VITALS: BP 138/66
[2018-03-27] MEDS ORDERED: LEVAQUIN750 MG PO (11:01)
[2018-03-27 11:09] VITALS: BP 132/73
[2018-03-27] MEDS ORDERED: STERAPRED DS 1010 MG PO (11:47)
[2018-03-27 16:03] VITALS: BP 122/76
[2018-03-28 18:07] LABS: ANGIOTENSIN CONVERTING ENZYME 50 U/L (14-82)
[2018-03-30 16:07] LABS: FUNGAL - ASP FLAVUS Negative (Neg:<1:1); FUNGAL - ASP NIGER Negative (Neg:<1:1); FUNGAL - ASPER FUMIGATUS Negative (Neg:<1:1)
== END 2018-03-27 16:08 | disposition home or self-care (01) | DRG 193 ==
LOC: D.ER 10:05 → D.EDHOLD 12:35 → D.M2 12:35
PROVIDERS: Family Medicine; Internal Medicine Nephrology; Internal Medicine Pulmonary Disease
DX: J18.9 Pneumonia, unspecified organism (principal); J96.01 Acute respiratory failure with hypoxia; I50.31 Acute diastolic (congestive) heart failure; N17.9 Acute kidney failure, unspecified; K21.9 Gastro-esophageal reflux disease without esophagitis; I11.0 Hypertensive heart disease with heart failure; E03.9 Hypothyroidism, unspecified; I25.10 Atherosclerotic heart disease of native coronary artery without angina pectoris; E78.5 Hyperlipidemia, unspecified; R59.0 Localized enlarged lymph nodes; J92.9 Pleural plaque without asbestos; Z95.5 Presence of coronary angioplasty implant and graft; Z95.1 Presence of aortocoronary bypass graft

== ENCOUNTER → 2018-05-07 10:14 | Outpatient (CLI) | payer MEDICARE ==
[2018-03-26 13:23] VITALS: BMI 21.6
[~2018-05-07 10:14] MED LIST changes: +ATIVAN0.5 MG PEG; +COLACE100 MG PO; +FUROSEMIDE20 MG PO; +LEVAQUIN750 MG PO; +Lortab Liquid GT; +NITROSTAT0.4 MG SL; +NORCO 10-325 TA1 TAB PO; +PROTONIX40 MG PO; +STERAPRED DS 1010 MG PO; +ZOFRAN ODT4 MG/UDTAB PO
== END | disposition home or self-care (01) ==
LOC: D.RAD 10:00
DX: J18.9 Pneumonia, unspecified organism (principal)

== ENCOUNTER 2018-05-28 14:15 | Inpatient (IN) | payer MEDICARE ==
[~2018-05-28] VITALS: Ht 177.8 cm; Wt 67.3 kg
--- NOTE | ~2018-05-28 | OP ---
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 2. Gastroesophageal reflux disease. 3. Hyperlipidemia. 4. Hypertension. 5. Coronary artery disease. 6. Intractable nausea and vomiting. 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 2. Gastroesophageal reflux disease. 3. Hyperlipidemia. 4. Hypertension. 5. Coronary artery disease. 6. Intractable nausea and vomiting. PROCEDURE: J PEG placement. SURGEON: Maddi Ramirez MD REPORT OF PROCEDURE: An Olympus endoscope was advanced through the patient's mouth and esophagus. Upon entering the stomach, there was noted to be about 750 mL of bilious fluid present in the stomach. This was suctioned out to clear. An area was then found on antrum of the stomach to house our PEG tube. We prepped the left upper quadrant and infused a total of 5 mL of 1% lidocaine. A skin incision was then made with an 11 blade just inferior to the medial aspect of the left subcostal area. The Angiocath needle was inserted through the abdominal wall and into the gastric lumen. A wire was advanced through this and grasped with an Endo snare. The snare and wire were pulled out through the mouth and esophagus and affixed to the 24-Namibian PEG tube. The PEG tube was then pulled into position in the anterior abdominal wall. At this point, a wire was advanced through the indwelling PEG tube and the PEG tube was pulled out. We then placed a 20-Namibian gastrojejunostomy tube over the wire into the stomach. In order to facilitate this, we had to pull the jejunal portion of the tube through the patient's mouth and esophagus and with tension, we were able to advance the balloon into the gastric lumen. We then insufflated the balloon and pulled it back into position. The jejunal portion of the tube was then advanced through the patient's pylorus and once it was noted to be resting in the pylorus appropriately and straight, then the insufflation and endoscope were removed. The catheter flushed easily and the gastric port was set to gravity. COMPLICATIONS: None. CONDITION: Stable. ANESTHESIA: General endotracheal. BLOOD LOSS: Minimal. TRANSINT:[id number] Voice Confirmation ID: [id number] DOCUMENT ID: [id number] OPERATIVE REPORT [id number] LEONCIO OLIVER CHRISTIAN MD at 0918 CC: [id number] DICTATION DATE: 06/11/18 1216 PARALEGAL SUPERVISOR: 06/11/18 1422 ADM IN [facility] [address] [id number]
[~2018-05-28 14:15] MED LIST changes: -ATIVAN0.5 MG PEG; -COLACE100 MG PO; -Lortab Liquid GT; -NITROSTAT0.4 MG SL; -NORCO 10-325 TA1 TAB PO; -ZOFRAN ODT4 MG/UDTAB PO
[2018-05-28 14:40] VITALS: BP 183/72
[2018-05-28 15:15] LABS: HEMATOCRIT 44.7 % (42.0-54.0); HEMOGLOBIN 14.8 g/dL (13.5-17.5); LYMPHOCYTES 7.6 % (15-50); MCH 27.7 pg (26.0-34.0); MCHC 33.1 g/dL (31.0-37.0); MCV 83.6 fL (80.0-100.0); MEAN PLATELET VOLUME 8.9 fL (7.4-10.4); RBC 5.35 10x6/uL (4.20-6.10); RDW 14.3 % (11.5-14.5); WBC 7.5 10x3/uL (4.8-10.8)
[2018-05-28 15:17] LABS: PLATELET COUNT 277 10x3/uL (130-400)
[2018-05-28 15:26] LABS: APTT 35.1 SECONDS (22.8-39.4); INR 1.06 (0.85-1.17); PROTIME 13.4 SECONDS (11.6-15.0)
[2018-05-28 15:27] LABS: D-DIMER-QUANTITATIVE 0.79 ug/mLFEU (0.20-0.54)
[2018-05-28 15:35] LABS: ALBUMIN 3.2 g/dL (3.4-5.0); ALKALINE PHOSPHATASE 91 U/L (46-116); ALT (SGPT) 19 U/L (10-68); BILIRUBIN - TOTAL 0.67 mg/dL (0.2-1.3); CALC OSMOLALITY 285 mosm/kg (275-300); CALCIUM 11.1 mg/dL (8.5-10.1); CARBON DIOXIDE 34.6 mmol/L (21.0-32.0); CHLORIDE - SERUM 96 mmol/L (98-107); CREATININE - SERUM 2.1 mg/dL (0.6-1.3); GLUCOSE 120 mg/dL (74-106); POTASSIUM - SERUM 3.7 mmol/L (3.5-5.1); PROTEIN - SERUM 7.8 g/dL (6.4-8.2); SODIUM 141 mmol/L (136-145); UREA NITROGEN 23 mg/dL (7-18); eGFR NON AFRICAN AMERICAN 32 mL/min (90-120)
[2018-05-28 15:47] LABS: CKMB 1.1 U/L (0.0-3.6); CREATINE KINASE 83 UL (21-232)
[2018-05-28 15:48] LABS: TROPONIN-I < 0.017 ng/mL (0.000-0.060)
[2018-05-28 16:27] VITALS: BP 115/72
[2018-05-28 16:58] LABS: APPEARANCE CLEAR (CLEAR); BILIRUBIN NEGATIVE (NEGATIVE); COLOR DK YELLOW (YELLOW); GLUCOSE NEGATIVE (NEGATIVE); KETONE MODERATE mg/dL (NEGATIVE); NITRITE NEGATIVE (NEGATIVE); PROTEIN 1+ mg/dL (NEGATIVE); UROBILINOGEN NORMAL (NORMAL)
[2018-05-28 16:59] LABS: AMORPHOUS SEDIMENT >1+ /lpf (NONE SEEN); BACTERIA MODERATE /hpf (NONE SEEN); EPITHELIAL CELLS 0-5 /hpf (0-5); MUCUS <1+ /lpf (NONE SEEN); RED CELLS - URINE 0-5 /hpf (0-5)
[2018-05-28 17:00] LABS: CALCIUM OXALATE CRYSTALS OCC /hpf (NONE SEEN)
[2018-05-28 18:51] VITALS: BP 116/72
[2018-05-28 20:16] VITALS: BP 118/72
[2018-05-28] MEDS ORDERED: NITROSTAT0.4 MG SL (22:11)
[2018-05-28 22:59] VITALS: BP 119/62; BMI 21.2
[2018-05-28 23:41] VITALS: BP 104/58
[2018-05-29 04:04] VITALS: BP 116/60
[2018-05-29 06:28] LABS: HEMOGLOBIN 12.3 g/dL (13.5-17.5); LYMPHOCYTES 9.6 % (15-50); MCH 27.8 pg (26.0-34.0); MCHC 33.2 g/dL (31.0-37.0); MCV 83.7 fL (80.0-100.0); MEAN PLATELET VOLUME 8.7 fL (7.4-10.4); NEUTROPHILS 73.9 % (40-80); PLATELET COUNT 223 10x3/uL (130-400); RBC 4.42 10x6/uL (4.20-6.10); RDW 14.1 % (11.5-14.5)
[2018-05-29 06:29] LABS: WBC 5.6 10x3/uL (4.8-10.8)
[2018-05-29 07:02] LABS: ALBUMIN 2.5 g/dL (3.4-5.0); ANION GAP 8.6 mmol/L (8-16); BILIRUBIN - TOTAL 0.43 mg/dL (0.2-1.3); CARBON DIOXIDE 36.7 mmol/L (21.0-32.0); CREATININE - SERUM 1.8 mg/dL (0.6-1.3); POTASSIUM - SERUM 3.3 mmol/L (3.5-5.1)
[2018-05-29 07:17] LABS: PROTEIN - SERUM 5.1 g/dL (6.4-8.2)
[2018-05-29 09:01] VITALS: BP 112/58
[2018-05-29 13:12] VITALS: BMI 21.2
[2018-05-29 13:45] VITALS: BP 114/61
[2018-05-29 16:09] VITALS: BP 118/70
[2018-05-29 19:48] VITALS: BP 116/59
[2018-05-30] VITALS (7 sets, daily range): BP systolic 102–136; BP diastolic 54–65; Ht 177.8 cm; Wt 67.3 kg
[2018-05-30 06:42] LABS: BASOPHILS 0.2 % (0-2); EOSINOPHILS 2.9 % (0-7); HEMATOCRIT 36.2 % (42.0-54.0); HEMOGLOBIN 11.7 g/dL (13.5-17.5); IMMATURE GRANULOCYTES 0.4 % (0-5); LYMPHOCYTES 15.2 % (15-50); MCH 27.5 pg (26.0-34.0); MCHC 32.3 g/dL (31.0-37.0); MCV 85.2 fL (80.0-100.0); MEAN PLATELET VOLUME 9.2 fL (7.4-10.4); MONOCYTES 10.7 % (2-11); NEUTROPHILS 70.6 % (40-80); RBC 4.25 10x6/uL (4.20-6.10); RDW 14.6 % (11.5-14.5); WBC 5.3 10x3/uL (4.8-10.8)
[2018-05-30 06:43] LABS: PLATELET COUNT 175 10x3/uL (130-400)
[2018-05-30 06:51] LABS: INR 1.04 (0.85-1.17); PROTIME 13.2 SECONDS (11.6-15.0)
[2018-05-30 07:09] LABS: ALBUMIN 2.2 g/dL (3.4-5.0); ANION GAP 6.9 mmol/L (8-16); BILIRUBIN - TOTAL 0.38 mg/dL (0.2-1.3); CALCIUM 8.9 mg/dL (8.5-10.1); CARBON DIOXIDE 31.5 mmol/L (21.0-32.0); POTASSIUM - SERUM 3.4 mmol/L (3.5-5.1); PROTEIN - SERUM 5.2 g/dL (6.4-8.2)
[2018-05-30 07:11] LABS: CREATININE - SERUM 1.2 mg/dL (0.6-1.3)
[2018-05-31 04:38] VITALS: BP 122/63
[2018-05-31 06:00] LABS: BASOPHILS 0.4 % (0-2); EOSINOPHILS 3.2 % (0-7); HEMATOCRIT 34.5 % (42.0-54.0); HEMOGLOBIN 11.2 g/dL (13.5-17.5); IMMATURE GRANULOCYTES 0.2 % (0-5); LYMPHOCYTES 8.6 % (15-50); MCH 27.7 pg (26.0-34.0); MCHC 32.5 g/dL (31.0-37.0); MCV 85.2 fL (80.0-100.0); MEAN PLATELET VOLUME 8.9 fL (7.4-10.4); MONOCYTES 17.8 % (2-11); NEUTROPHILS 69.8 % (40-80); PLATELET COUNT 158 10x3/uL (130-400); RBC 4.05 10x6/uL (4.20-6.10); RDW 14.3 % (11.5-14.5); WBC 4.7 10x3/uL (4.8-10.8)
[2018-05-31 06:37] LABS: ANION GAP 8.2 mmol/L (8-16); BILIRUBIN - TOTAL 0.41 mg/dL (0.2-1.3); CALCIUM 8.5 mg/dL (8.5-10.1); CARBON DIOXIDE 31.6 mmol/L (21.0-32.0); CREATININE - SERUM 1.1 mg/dL (0.6-1.3); POTASSIUM - SERUM 3.8 mmol/L (3.5-5.1); PROTEIN - SERUM 4.4 g/dL (6.4-8.2)
[2018-05-31 09:37] VITALS: BP 126/56
[2018-05-31 17:37] VITALS: BP 123/53
[2018-05-31 19:33] VITALS: BP 128/61
[2018-05-31 23:43] VITALS: BP 152/71
[2018-06-01] VITALS (10 sets, daily range): BP systolic 112–144; BP diastolic 58–75
[2018-06-01 05:06] LABS: BASOPHILS 0.4 % (0-2); HEMOGLOBIN 12.2 g/dL (13.5-17.5); IMMATURE GRANULOCYTES 0.6 % (0-5); LYMPHOCYTES 6.4 % (15-50); MCH 28.1 pg (26.0-34.0); MCV 85.3 fL (80.0-100.0); MEAN PLATELET VOLUME 9.4 fL (7.4-10.4); MONOCYTES 13.9 % (2-11); NEUTROPHILS 74.7 % (40-80); PLATELET COUNT 167 10x3/uL (130-400); RBC 4.34 10x6/uL (4.20-6.10); RDW 14.7 % (11.5-14.5); WBC 5.3 10x3/uL (4.8-10.8)
[2018-06-01 05:38] LABS: CARBON DIOXIDE 28.2 mmol/L (21.0-32.0); CHLORIDE - SERUM 107 mmol/L (98-107); GLUCOSE 88 mg/dL (74-106); POTASSIUM - SERUM 3.8 mmol/L (3.5-5.1); SODIUM 142 mmol/L (136-145); eGFR NON AFRICAN AMERICAN 76 mL/min (90-120)
[2018-06-01 05:39] LABS: ALBUMIN 2.2 g/dL (3.4-5.0); ALKALINE PHOSPHATASE 64 U/L (46-116); ALT (SGPT) 14 U/L (10-68); CALC OSMOLALITY 279 mosm/kg (275-300); CALCIUM 8.6 mg/dL (8.5-10.1); PROTEIN - SERUM 4.8 g/dL (6.4-8.2); UREA NITROGEN 7 mg/dL (7-18)
[2018-06-01 07:18] LABS: INR 1.11 (0.85-1.17); PROTIME 13.7 SECONDS (11.6-15.0)
[2018-06-01 07:20] LABS: APTT 40.6 SECONDS (22.8-39.4)
[2018-06-02 04:13] VITALS: BP 146/69
[2018-06-02 06:20] LABS: BASOPHILS 0.3 % (0-2); EOSINOPHILS 2.2 % (0-7); HEMATOCRIT 39.1 % (42.0-54.0); HEMOGLOBIN 12.6 g/dL (13.5-17.5); IMMATURE GRANULOCYTES 0.4 % (0-5); LYMPHOCYTES 5.2 % (15-50); MCH 27.7 pg (26.0-34.0); MCHC 32.2 g/dL (31.0-37.0); MCV 85.9 fL (80.0-100.0); MEAN PLATELET VOLUME 9.4 fL (7.4-10.4); MONOCYTES 13.3 % (2-11); NEUTROPHILS 78.6 % (40-80); PLATELET COUNT 179 10x3/uL (130-400); RBC 4.55 10x6/uL (4.20-6.10); RDW 14.8 % (11.5-14.5)
[2018-06-02 06:28] LABS: WBC 7.7 10x3/uL (4.8-10.8)
[2018-06-02 06:36] LABS: ALBUMIN 2.4 g/dL (3.4-5.0); ANION GAP 12.2 mmol/L (8-16); BILIRUBIN - TOTAL 0.74 mg/dL (0.2-1.3); CALCIUM 8.9 mg/dL (8.5-10.1); CARBON DIOXIDE 27.8 mmol/L (21.0-32.0); CREATININE - SERUM 1.2 mg/dL (0.6-1.3); PROTEIN - SERUM 5.1 g/dL (6.4-8.2)
[2018-06-02 08:24] VITALS: BP 109/59
[2018-06-02 12:40] VITALS: BP 127/71
[2018-06-02 15:37] VITALS: BP 125/64
[2018-06-02 19:54] VITALS: BP 94/59
[2018-06-02 23:32] VITALS: BP 99/42
[2018-06-03 05:18] VITALS: BP 144/68
[2018-06-03 06:58] LABS: BASOPHILS 0.2 % (0-2); EOSINOPHILS 3.7 % (0-7); HEMATOCRIT 35.1 % (42.0-54.0); HEMOGLOBIN 11.4 g/dL (13.5-17.5); IMMATURE GRANULOCYTES 0.4 % (0-5); LYMPHOCYTES 7.6 % (15-50); MCH 27.5 pg (26.0-34.0); MCHC 32.5 g/dL (31.0-37.0); MCV 84.6 fL (80.0-100.0); MEAN PLATELET VOLUME 9.3 fL (7.4-10.4); MONOCYTES 14.3 % (2-11); NEUTROPHILS 73.8 % (40-80); PLATELET COUNT 165 10x3/uL (130-400); RBC 4.15 10x6/uL (4.20-6.10); RDW 14.6 % (11.5-14.5)
[2018-06-03 07:03] LABS: WBC 5.4 10x3/uL (4.8-10.8)
[2018-06-03 07:19] LABS: ALBUMIN 2.1 g/dL (3.4-5.0); ANION GAP 10.3 mmol/L (8-16); BILIRUBIN - TOTAL 0.64 mg/dL (0.2-1.3); CALCIUM 8.5 mg/dL (8.5-10.1); CARBON DIOXIDE 27.5 mmol/L (21.0-32.0); CREATININE - SERUM 1.1 mg/dL (0.6-1.3); POTASSIUM - SERUM 3.8 mmol/L (3.5-5.1); PROTEIN - SERUM 4.5 g/dL (6.4-8.2)
[2018-06-03 07:49] VITALS: BP 111/53
[2018-06-03 12:12] VITALS: BP 134/56
[2018-06-03 15:32] VITALS: BP 136/65
[2018-06-03 19:40] VITALS: BP 121/60
[2018-06-03 23:11] VITALS: BP 105/54
[2018-06-04 04:23] VITALS: BP 90/51
[2018-06-04 07:58] VITALS: BP 120/63
[2018-06-04 12:43] VITALS: BP 91/52
[2018-06-04 16:20] VITALS: BP 114/46
[2018-06-04 19:51] VITALS: BP 106/50
[2018-06-04 23:25] VITALS: BP 107/53
[2018-06-05 04:31] VITALS: BP 144/65
[2018-06-05 06:24] LABS: BASOPHILS 0.2 % (0-2); EOSINOPHILS 3.3 % (0-7); HEMATOCRIT 35.2 % (42.0-54.0); HEMOGLOBIN 11.4 g/dL (13.5-17.5); IMMATURE GRANULOCYTES 0.4 % (0-5); LYMPHOCYTES 6.7 % (15-50); MCH 27.1 pg (26.0-34.0); MCHC 32.4 g/dL (31.0-37.0); MCV 83.8 fL (80.0-100.0); MEAN PLATELET VOLUME 9.4 fL (7.4-10.4); MONOCYTES 15.9 % (2-11); NEUTROPHILS 73.5 % (40-80); PLATELET COUNT 166 10x3/uL (130-400); RDW 14.6 % (11.5-14.5); WBC 5.7 10x3/uL (4.8-10.8)
[2018-06-05 06:39] LABS: CALC OSMOLALITY 279 mosm/kg (275-300); CALCIUM 8.7 mg/dL (8.5-10.1); CARBON DIOXIDE 27.9 mmol/L (21.0-32.0); CHLORIDE - SERUM 106 mmol/L (98-107); GLUCOSE 93 mg/dL (74-106); POTASSIUM - SERUM 3.6 mmol/L (3.5-5.1); SODIUM 142 mmol/L (136-145); eGFR NON AFRICAN AMERICAN 76 mL/min (90-120)
[2018-06-05 06:42] LABS: UREA NITROGEN 5 mg/dL (7-18)
[2018-06-05 07:43] VITALS: BP 111/50
[2018-06-05 12:23] VITALS: BP 112/67
[2018-06-05 19:50] VITALS: BP 111/64
[2018-06-06] VITALS (8 sets, daily range): BP systolic 105–164; BP diastolic 49–76
[2018-06-06 06:47] LABS: BASOPHILS 0.3 % (0-2); EOSINOPHILS 2.5 % (0-7); HEMATOCRIT 37.7 % (42.0-54.0); HEMOGLOBIN 12.5 g/dL (13.5-17.5); IMMATURE GRANULOCYTES 0.3 % (0-5); MCHC 33.2 g/dL (31.0-37.0); MCV 84.3 fL (80.0-100.0); MEAN PLATELET VOLUME 9.2 fL (7.4-10.4); MONOCYTES 14.7 % (2-11); NEUTROPHILS 73.2 % (40-80); PLATELET COUNT 171 10x3/uL (130-400); RBC 4.47 10x6/uL (4.20-6.10); RDW 14.7 % (11.5-14.5); WBC 6.7 10x3/uL (4.8-10.8)
[2018-06-06 07:06] LABS: CHOLESTEROL, TOTAL 119 mg/dL (0-200); HDL CHOLESTEROL 17 mg/dL (32-96); LDL CHOLESTEROL 79 mg/dL (0-100); LDL-HDL RATIO 4.6 ratio (1.5-3.5); TRIGLYCERIDE 117 mg/dL (30-200)
[2018-06-06 07:28] LABS: CALC OSMOLALITY 276 mosm/kg (275-300); CALCIUM 9.1 mg/dL (8.5-10.1); CARBON DIOXIDE 22.8 mmol/L (21.0-32.0); CHLORIDE - SERUM 104 mmol/L (98-107); CREATININE - SERUM 0.9 mg/dL (0.6-1.3); GLUCOSE 90 mg/dL (74-106); POTASSIUM - SERUM 3.8 mmol/L (3.5-5.1); SODIUM 139 mmol/L (136-145); UREA NITROGEN 9 mg/dL (7-18); eGFR NON AFRICAN AMERICAN 85 mL/min (90-120)
[2018-06-07 04:02] VITALS: BP 118/62
[2018-06-07 06:14] LABS: BASOPHILS 0.1 % (0-2); EOSINOPHILS 3.1 % (0-7); HEMATOCRIT 37.7 % (42.0-54.0); HEMOGLOBIN 12.3 g/dL (13.5-17.5); IMMATURE GRANULOCYTES 0.3 % (0-5); LYMPHOCYTES 8.6 % (15-50); MCH 27.5 pg (26.0-34.0); MCHC 32.6 g/dL (31.0-37.0); MCV 84.2 fL (80.0-100.0); MEAN PLATELET VOLUME 8.9 fL (7.4-10.4); MONOCYTES 14.6 % (2-11); NEUTROPHILS 73.3 % (40-80); PLATELET COUNT 175 10x3/uL (130-400); RBC 4.48 10x6/uL (4.20-6.10); RDW 14.6 % (11.5-14.5); WBC 6.7 10x3/uL (4.8-10.8)
[2018-06-07 06:33] LABS: ANION GAP 9.6 mmol/L (8-16); CALCIUM 8.9 mg/dL (8.5-10.1); CREATININE - SERUM 1.1 mg/dL (0.6-1.3); POTASSIUM - SERUM 3.9 mmol/L (3.5-5.1)
[2018-06-07 06:36] LABS: CARBON DIOXIDE 29.3 mmol/L (21.0-32.0)
[2018-06-07 08:25] VITALS: BP 138/64
[2018-06-07 20:30] VITALS: BP 108/56
[2018-06-08] VITALS (7 sets, daily range): BP systolic 121–168; BP diastolic 63–746
[2018-06-08 06:37] LABS: BASOPHILS 0.5 % (0-2); EOSINOPHILS 3.7 % (0-7); HEMATOCRIT 36.8 % (42.0-54.0); IMMATURE GRANULOCYTES 0.5 % (0-5); LYMPHOCYTES 6.2 % (15-50); MCH 27.3 pg (26.0-34.0); MCHC 32.6 g/dL (31.0-37.0); MCV 83.8 fL (80.0-100.0); MEAN PLATELET VOLUME 9.3 fL (7.4-10.4); MONOCYTES 18.1 % (2-11); PLATELET COUNT 189 10x3/uL (130-400); RBC 4.39 10x6/uL (4.20-6.10); RDW 14.5 % (11.5-14.5); WBC 6.3 10x3/uL (4.8-10.8)
[2018-06-08 06:45] LABS: APTT 35.6 SECONDS (22.8-39.4); INR 1.13 (0.85-1.17); PROTIME 14.1 SECONDS (11.6-15.0)
[2018-06-08 06:59] LABS: CALC OSMOLALITY 276 mosm/kg (275-300); CALCIUM 8.7 mg/dL (8.5-10.1); CARBON DIOXIDE 29.1 mmol/L (21.0-32.0); CHLORIDE - SERUM 104 mmol/L (98-107); GLUCOSE 87 mg/dL (74-106); POTASSIUM - SERUM 3.8 mmol/L (3.5-5.1); SODIUM 140 mmol/L (136-145); UREA NITROGEN 10 mg/dL (7-18); eGFR NON AFRICAN AMERICAN 76 mL/min (90-120)
[2018-06-09 04:00] VITALS: BP 141/69
[2018-06-09 07:14] LABS: BASOPHILS 0.3 % (0-2); EOSINOPHILS 2.9 % (0-7); HEMATOCRIT 41.1 % (42.0-54.0); HEMOGLOBIN 13.4 g/dL (13.5-17.5); IMMATURE GRANULOCYTES 0.4 % (0-5); LYMPHOCYTES 13.9 % (15-50); MCH 27.3 pg (26.0-34.0); MCHC 32.6 g/dL (31.0-37.0); MCV 83.7 fL (80.0-100.0); MEAN PLATELET VOLUME 9.4 fL (7.4-10.4); MONOCYTES 13.9 % (2-11); NEUTROPHILS 68.6 % (40-80); PLATELET COUNT 221 10x3/uL (130-400); RBC 4.91 10x6/uL (4.20-6.10); RDW 14.6 % (11.5-14.5)
[2018-06-09 07:20] LABS: ANION GAP 11.4 mmol/L (8-16); CALCIUM 9.5 mg/dL (8.5-10.1); CARBON DIOXIDE 30.3 mmol/L (21.0-32.0); CREATININE - SERUM 1.1 mg/dL (0.6-1.3); POTASSIUM - SERUM 3.7 mmol/L (3.5-5.1)
[2018-06-09 07:29] LABS: WBC 7.9 10x3/uL (4.8-10.8)
[2018-06-09 08:16] VITALS: BP 130/64
[2018-06-09 11:56] VITALS: BP 125/63
[2018-06-09 16:28] VITALS: BP 133/66
[2018-06-09 23:19] VITALS: BP 149/71
[2018-06-10 03:40] VITALS: BP 141/87
[2018-06-10 07:56] LABS: HEMATOCRIT 36.4 % (42.0-54.0); HEMOGLOBIN 11.8 g/dL (13.5-17.5); MCH 27.2 pg (26.0-34.0); MCHC 32.4 g/dL (31.0-37.0); MCV 83.9 fL (80.0-100.0); MEAN PLATELET VOLUME 9.1 fL (7.4-10.4); RBC 4.34 10x6/uL (4.20-6.10); RDW 14.4 % (11.5-14.5)
[2018-06-10 07:59] LABS: PLATELET COUNT 172 10x3/uL (130-400); WBC 5.8 10x3/uL (4.8-10.8)
[2018-06-10 08:23] LABS: ALBUMIN 2.3 g/dL (3.4-5.0); ALKALINE PHOSPHATASE 99 U/L (46-116); ALT (SGPT) 16 U/L (10-68); BILIRUBIN - TOTAL 0.51 mg/dL (0.2-1.3); CALC OSMOLALITY 278 mosm/kg (275-300); CALCIUM 8.8 mg/dL (8.5-10.1); CHLORIDE - SERUM 103 mmol/L (98-107); CREATININE - SERUM 0.9 mg/dL (0.6-1.3); GLUCOSE 100 mg/dL (74-106); POTASSIUM - SERUM 4.2 mmol/L (3.5-5.1); PROTEIN - SERUM 5.2 g/dL (6.4-8.2); SODIUM 140 mmol/L (136-145); UREA NITROGEN 13 mg/dL (7-18); eGFR NON AFRICAN AMERICAN 85 mL/min (90-120)
[2018-06-10 08:43] VITALS: BP 136/72
[2018-06-10 09:21] LABS: EOSINOPHILS 2 % (0-7); LYMPHOCYTES 16 % (15-50); MONOCYTES 18 % (2-11); NEUTROPHILS 58 % (40-80); PLATELET ESTIMATE NORMAL
[2018-06-10 09:22] LABS: HYPOCHROMASIA 1+
[2018-06-10 12:08] VITALS: BP 137/79
[2018-06-10 21:03] VITALS: BP 130/69
[2018-06-11 01:06] VITALS: BP 127/73
[2018-06-11 04:00] VITALS: BP 171/78
[2018-06-11 06:44] LABS: BASOPHILS 0.2 % (0-2); EOSINOPHILS 4.8 % (0-7); HEMATOCRIT 35.9 % (42.0-54.0); HEMOGLOBIN 11.6 g/dL (13.5-17.5); IMMATURE GRANULOCYTES 0.3 % (0-5); MCHC 32.3 g/dL (31.0-37.0); MCV 83.7 fL (80.0-100.0); MEAN PLATELET VOLUME 9.4 fL (7.4-10.4); NEUTROPHILS 67.7 % (40-80); PLATELET COUNT 188 10x3/uL (130-400); RBC 4.29 10x6/uL (4.20-6.10); RDW 14.5 % (11.5-14.5); WBC 5.9 10x3/uL (4.8-10.8)
[2018-06-11 07:15] LABS: ALBUMIN 2.2 g/dL (3.4-5.0); ANION GAP 11.1 mmol/L (8-16); BILIRUBIN - TOTAL 0.53 mg/dL (0.2-1.3); CALCIUM 8.9 mg/dL (8.5-10.1); CARBON DIOXIDE 29.6 mmol/L (21.0-32.0); CREATININE - SERUM 1.1 mg/dL (0.6-1.3); POTASSIUM - SERUM 3.7 mmol/L (3.5-5.1); PROTEIN - SERUM 5.4 g/dL (6.4-8.2)
[2018-06-11 08:52] VITALS: BP 117/70
[2018-06-11 13:22] VITALS: BP 148/74
[2018-06-11 15:57] VITALS: BP 107/67
[2018-06-12 00:14] VITALS: BP 141/76
[2018-06-12 04:36] VITALS: BP 127/76
[2018-06-12 07:59] LABS: BASOPHILS 0.4 % (0-2); HEMATOCRIT 42.9 % (42.0-54.0); IMMATURE GRANULOCYTES 0.7 % (0-5); LYMPHOCYTES 8.9 % (15-50); MCH 27.9 pg (26.0-34.0); MCHC 33.1 g/dL (31.0-37.0); MCV 84.3 fL (80.0-100.0); MEAN PLATELET VOLUME 9.8 fL (7.4-10.4); MONOCYTES 6.6 % (2-11); NEUTROPHILS 82.4 % (40-80); PLATELET COUNT 208 10x3/uL (130-400); RBC 5.09 10x6/uL (4.20-6.10); RDW 14.5 % (11.5-14.5)
[2018-06-12 08:09] LABS: HEMOGLOBIN 14.2 g/dL (13.5-17.5); WBC 8.3 10x3/uL (4.8-10.8)
[2018-06-12 08:19] LABS: ALBUMIN 2.7 g/dL (3.4-5.0); BILIRUBIN - TOTAL 0.62 mg/dL (0.2-1.3); CALCIUM 9.5 mg/dL (8.5-10.1); CARBON DIOXIDE 25.1 mmol/L (21.0-32.0); CREATININE - SERUM 1.3 mg/dL (0.6-1.3); PROTEIN - SERUM 6.7 g/dL (6.4-8.2)
[2018-06-12 08:28] LABS: ANION GAP 13.5 mmol/L (8-16); POTASSIUM - SERUM 4.6 mmol/L (3.5-5.1)
[2018-06-12 08:31] VITALS: BP 136/69
[2018-06-12 13:32] VITALS: BP 134/80
[2018-06-12 16:13] VITALS: BP 144/87
[2018-06-12 20:00] VITALS: BP 141/81
[2018-06-13] VITALS: BP 127/74
[2018-06-13 04:00] VITALS: BP 130/76
[2018-06-13 05:33] LABS: BASOPHILS 0.5 % (0-2); EOSINOPHILS 2.3 % (0-7); HEMATOCRIT 41.1 % (42.0-54.0); HEMOGLOBIN 13.4 g/dL (13.5-17.5); IMMATURE GRANULOCYTES 0.3 % (0-5); LYMPHOCYTES 8.2 % (15-50); MCH 27.2 pg (26.0-34.0); MCHC 32.6 g/dL (31.0-37.0); MCV 83.5 fL (80.0-100.0); MEAN PLATELET VOLUME 9.3 fL (7.4-10.4); NEUTROPHILS 73.7 % (40-80); PLATELET COUNT 232 10x3/uL (130-400); RBC 4.92 10x6/uL (4.20-6.10); RDW 14.8 % (11.5-14.5); WBC 6.2 10x3/uL (4.8-10.8)
[2018-06-13 05:52] LABS: ALBUMIN 2.7 g/dL (3.4-5.0); ANION GAP 9.9 mmol/L (8-16); BILIRUBIN - TOTAL 0.53 mg/dL (0.2-1.3); CARBON DIOXIDE 31.3 mmol/L (21.0-32.0); CREATININE - SERUM 1.5 mg/dL (0.6-1.3); POTASSIUM - SERUM 5.2 mmol/L (3.5-5.1); PROTEIN - SERUM 6.5 g/dL (6.4-8.2)
[2018-06-13 09:19] VITALS: BP 136/74
[2018-06-13 12:16] VITALS: BP 126/79
[2018-06-13 16:16] VITALS: BP 124/80
[2018-06-13 19:41] VITALS: BP 127/79
[2018-06-14 03:39] VITALS: BP 141/79
[2018-06-14 05:48] LABS: BASOPHILS 0.5 % (0-2); EOSINOPHILS 3.1 % (0-7); HEMATOCRIT 40.5 % (42.0-54.0); IMMATURE GRANULOCYTES 0.4 % (0-5); LYMPHOCYTES 11.4 % (15-50); MCH 27.2 pg (26.0-34.0); MCHC 32.1 g/dL (31.0-37.0); MCV 84.7 fL (80.0-100.0); MEAN PLATELET VOLUME 9.7 fL (7.4-10.4); MONOCYTES 9.4 % (2-11); NEUTROPHILS 75.2 % (40-80); PLATELET COUNT 233 10x3/uL (130-400); RBC 4.78 10x6/uL (4.20-6.10); RDW 14.8 % (11.5-14.5); WBC 7.4 10x3/uL (4.8-10.8)
[2018-06-14 06:49] LABS: ALBUMIN 2.5 g/dL (3.4-5.0); BILIRUBIN - TOTAL 0.51 mg/dL (0.2-1.3); CALCIUM 9.6 mg/dL (8.5-10.1); CARBON DIOXIDE 29.3 mmol/L (21.0-32.0); CREATININE - SERUM 1.3 mg/dL (0.6-1.3)
[2018-06-14 06:51] LABS: ANION GAP 12.9 mmol/L (8-16); POTASSIUM - SERUM 4.2 mmol/L (3.5-5.1); PROTEIN - SERUM 3.5 g/dL (6.4-8.2)
[2018-06-14 08:15] VITALS: BP 126/79
[2018-06-14 12:19] VITALS: BP 146/93
[2018-06-14 16:00] VITALS: BP 132/77
[2018-06-14 20:00] VITALS: BP 125/82
[2018-06-15 04:59] VITALS: BP 147/88
[2018-06-15 08:20] VITALS: BP 136/78
[2018-06-15 13:16] VITALS: BP 143/76
[2018-06-15 20:35] VITALS: BP 114/62
[2018-06-16 04:19] VITALS: BP 124/64
[2018-06-16 09:24] VITALS: BP 133/70
[2018-06-16 12:27] VITALS: BP 122/77
[2018-06-16 16:58] VITALS: BP 111/75
[2018-06-16 21:22] VITALS: BP 132/64
[2018-06-17 04:16] VITALS: BP 154/64
[2018-06-17 09:42] VITALS: BP 129/71
[2018-06-17] MEDS ORDERED: Lortab Liquid GT (14:22)
[2018-06-17] MEDS ORDERED: COLACE100 MG PO (14:23)
[2018-06-17] MEDS ORDERED: ATIVAN0.5 MG PEG (14:23)
[2018-06-17] MEDS ORDERED: ZOFRAN ODT4 MG/UDTAB PO (14:24)
[2018-06-17 15:09] VITALS: BP 107/66
== END 2018-06-17 17:02 | disposition home health service (06) | DRG 823 ==
LOC: D.ER 14:15 → D.EDHOLD 19:40 → D.MS 19:40
PROVIDERS: Family Medicine; Family Medicine Adult Medicine; General Practice; Internal Medicine Gastroenterology; Internal Medicine Nephrology
PROC: 0DB78ZX Excision of Stomach, Pylorus, Via Natural or Artificial Opening Endoscopic, Diagnostic (ICD-10-PCS; principal; 2018-05-31 07:42)
PROC: 07B73ZX Excision of Thorax Lymphatic, Percutaneous Approach, Diagnostic (ICD-10-PCS; 2018-06-01)
PROC: 0QB33ZX Excision of Left Pelvic Bone, Percutaneous Approach, Diagnostic (ICD-10-PCS; 2018-06-08)
PROC: 0Q933ZX Drainage of Left Pelvic Bone, Percutaneous Approach, Diagnostic (ICD-10-PCS; 2018-06-08)
PROC: 0DHA3UZ Insertion of Feeding Device into Jejunum, Percutaneous Approach (ICD-10-PCS; 2018-06-11)
DX: C82.02 Follicular lymphoma grade I, intrathoracic lymph nodes (principal); J18.9 Pneumonia, unspecified organism; E43 Unspecified severe protein-calorie malnutrition; I50.31 Acute diastolic (congestive) heart failure; N17.9 Acute kidney failure, unspecified; C82.08 Follicular lymphoma grade I, lymph nodes of multiple sites; Z68.21 Body mass index [BMI] 21.0-21.9, adult; E86.0 Dehydration; E87.6 Hypokalemia; I11.0 Hypertensive heart disease with heart failure; E78.5 Hyperlipidemia, unspecified; R68.81 Early satiety; K21.0 Gastro-esophageal reflux disease with esophagitis; K22.2 Esophageal obstruction; K44.9 Diaphragmatic hernia without obstruction or gangrene; K29.80 Duodenitis without bleeding; K29.70 Gastritis, unspecified, without bleeding; K57.10 Diverticulosis of small intestine without perforation or abscess without bleeding; R91.1 Solitary pulmonary nodule; K31.84 Gastroparesis; K64.8 Other hemorrhoids; K59.00 Constipation, unspecified

== ENCOUNTER 2018-06-27 15:02 | Inpatient (IN) | payer MEDICARE ==
[~2018-06-27] VITALS: Ht 177.8 cm; Wt 66.5 kg
[2018-06-27] VITALS (8 sets, daily range): BP systolic 109–152; BP diastolic 59–87; BMI 21.0
[~2018-06-27 15:02] MED LIST changes: +ATIVAN0.5 MG PEG; +COLACE100 MG PO; +Lortab Liquid GT; +NITROSTAT0.4 MG SL; +ZOFRAN ODT4 MG/UDTAB PO
[2018-06-27 16:36] LABS: BASOPHILS 0.4 % (0-2); EOSINOPHILS 5.6 % (0-7); HEMATOCRIT 38.5 % (42.0-54.0); HEMOGLOBIN 12.4 g/dL (13.5-17.5); IMMATURE GRANULOCYTES 0.3 % (0-5); LYMPHOCYTES 9.6 % (15-50); MCH 27.3 pg (26.0-34.0); MCHC 32.2 g/dL (31.0-37.0); MCV 84.6 fL (80.0-100.0); MEAN PLATELET VOLUME 9.8 fL (7.4-10.4); MONOCYTES 6.9 % (2-11); NEUTROPHILS 77.2 % (40-80); PLATELET COUNT 207 10x3/uL (130-400); RBC 4.55 10x6/uL (4.20-6.10); RDW 15.7 % (11.5-14.5); WBC 9.7 10x3/uL (4.8-10.8)
[2018-06-27 16:45] LABS: INR 1.02 (0.85-1.17)
[2018-06-27 16:53] LABS: ALBUMIN 2.4 g/dL (3.4-5.0); ALKALINE PHOSPHATASE 169 U/L (46-116); ALT (SGPT) 19 U/L (10-68); BILIRUBIN - TOTAL 0.84 mg/dL (0.2-1.3); CALC OSMOLALITY 278 mosm/kg (275-300); CALCIUM 9.5 mg/dL (8.5-10.1); CARBON DIOXIDE 37.1 mmol/L (21.0-32.0); CHLORIDE - SERUM 96 mmol/L (98-107); CREATININE - SERUM 1.5 mg/dL (0.6-1.3); GLUCOSE 134 mg/dL (74-106); POTASSIUM - SERUM 3.3 mmol/L (3.5-5.1); PROTEIN - SERUM 6.2 g/dL (6.4-8.2); SODIUM 135 mmol/L (136-145); UREA NITROGEN 33 mg/dL (7-18); eGFR NON AFRICAN AMERICAN 47 mL/min (90-120)
[2018-06-27 17:05] LABS: AMYLASE - SERUM 85 U/L (25-115); CKMB 0.9 U/L (0.0-3.6); CREATINE KINASE 69 UL (21-232); LIPASE 295 U/L (73-393); PRO BNP 725 pg/mL (0-450)
[2018-06-27 17:09] LABS: TROPONIN-I < 0.017 ng/mL (0.000-0.060)
[2018-06-27 17:12] LABS: C-REACTIVE PROTEIN 18.1 mg/dL (0.0-0.9)
[2018-06-27 17:28] LABS: APPEARANCE CLOUDY (CLEAR); BILIRUBIN 1+ (NEGATIVE); COLOR DK YELLOW (YELLOW); GLUCOSE NEGATIVE (NEGATIVE); KETONE NEGATIVE (NEGATIVE); NITRITE NEGATIVE (NEGATIVE); PROTEIN 1+ mg/dL (NEGATIVE); SPECIFIC GRAVITY 1.005 (1.005-1.020); UROBILINOGEN NORMAL (NORMAL)
[2018-06-27 17:29] LABS: WHITE CELLS - URINE 0-5 /hpf (0-5)
[2018-06-27 17:30] LABS: AMORPHOUS SEDIMENT >1+ /lpf (NONE SEEN); BACTERIA MODERATE /hpf (NONE SEEN); EPITHELIAL CELLS 0-5 /hpf (0-5)
[2018-06-28] VITALS (25 sets, daily range): BP systolic 108–152; BP diastolic 54–95
[2018-06-28 04:54] LABS: BASOPHILS 0.7 % (0-2); EOSINOPHILS 5.6 % (0-7); HEMATOCRIT 35.3 % (42.0-54.0); HEMOGLOBIN 11.1 g/dL (13.5-17.5); IMMATURE GRANULOCYTES 0.3 % (0-5); LYMPHOCYTES 5.1 % (15-50); MCH 26.8 pg (26.0-34.0); MCHC 31.4 g/dL (31.0-37.0); MCV 85.3 fL (80.0-100.0); MEAN PLATELET VOLUME 9.5 fL (7.4-10.4); MONOCYTES 15.5 % (2-11); NEUTROPHILS 72.8 % (40-80); PLATELET COUNT 170 10x3/uL (130-400); RBC 4.14 10x6/uL (4.20-6.10); RDW 15.6 % (11.5-14.5); WBC 7.5 10x3/uL (4.8-10.8)
[2018-06-28 05:19] LABS: ALBUMIN 2.1 g/dL (3.4-5.0); ANION GAP 5.2 mmol/L (8-16); BILIRUBIN - TOTAL 0.6 mg/dL (0.2-1.3); CARBON DIOXIDE 35.5 mmol/L (21.0-32.0); CREATININE - SERUM 1.5 mg/dL (0.6-1.3); POTASSIUM - SERUM 3.7 mmol/L (3.5-5.1); PROTEIN - SERUM 5.4 g/dL (6.4-8.2)
[2018-06-29] VITALS (21 sets, daily range): BP systolic 112–149; BP diastolic 53–99; Ht 177.8 cm; Wt 66.5 kg
[2018-06-29 03:54] LABS: BASOPHILS 0.5 % (0-2); EOSINOPHILS 5.5 % (0-7); HEMATOCRIT 36.8 % (42.0-54.0); HEMOGLOBIN 11.8 g/dL (13.5-17.5); IMMATURE GRANULOCYTES 0.2 % (0-5); LYMPHOCYTES 6.6 % (15-50); MCH 27.1 pg (26.0-34.0); MCHC 32.1 g/dL (31.0-37.0); MCV 84.4 fL (80.0-100.0); MEAN PLATELET VOLUME 9.4 fL (7.4-10.4); MONOCYTES 14.4 % (2-11); NEUTROPHILS 72.8 % (40-80); PLATELET COUNT 175 10x3/uL (130-400); RBC 4.36 10x6/uL (4.20-6.10); RDW 15.3 % (11.5-14.5); WBC 6.4 10x3/uL (4.8-10.8)
[2018-06-29 04:24] LABS: ANION GAP 11.6 mmol/L (8-16); CALCIUM 8.7 mg/dL (8.5-10.1); CARBON DIOXIDE 29.5 mmol/L (21.0-32.0); CREATININE - SERUM 1.3 mg/dL (0.6-1.3); POTASSIUM - SERUM 4.1 mmol/L (3.5-5.1)
[2018-06-30 02:44] VITALS: BP 127/82
[2018-06-30 05:12] LABS: BASOPHILS 0.5 % (0-2); HEMATOCRIT 37.4 % (42.0-54.0); HEMOGLOBIN 12.1 g/dL (13.5-17.5); IMMATURE GRANULOCYTES 0.4 % (0-5); LYMPHOCYTES 5.7 % (15-50); MCHC 32.4 g/dL (31.0-37.0); MCV 83.5 fL (80.0-100.0); MEAN PLATELET VOLUME 9.5 fL (7.4-10.4); MONOCYTES 12.5 % (2-11); NEUTROPHILS 75.9 % (40-80); PLATELET COUNT 192 10x3/uL (130-400); RBC 4.48 10x6/uL (4.20-6.10); RDW 15.2 % (11.5-14.5); WBC 5.6 10x3/uL (4.8-10.8)
[2018-06-30 05:17] LABS: ANION GAP 12.6 mmol/L (8-16); CALCIUM 8.6 mg/dL (8.5-10.1); CARBON DIOXIDE 26.8 mmol/L (21.0-32.0); CREATININE - SERUM 1.3 mg/dL (0.6-1.3)
[2018-06-30 05:18] LABS: POTASSIUM - SERUM 3.4 mmol/L (3.5-5.1)
[2018-06-30 08:32] VITALS: BP 137/71
[2018-06-30 11:54] VITALS: BP 126/72
[2018-06-30 17:38] VITALS: BP 132/71
[2018-06-30 20:00] VITALS: BP 147/72
[2018-07-01] VITALS: BP 142/82
[2018-07-01 04:00] VITALS: BP 135/75
[2018-07-01 04:40] LABS: BASOPHILS 0.6 % (0-2); EOSINOPHILS 8.5 % (0-7); HEMATOCRIT 38.5 % (42.0-54.0); HEMOGLOBIN 12.6 g/dL (13.5-17.5); IMMATURE GRANULOCYTES 0.4 % (0-5); LYMPHOCYTES 6.4 % (15-50); MCH 27.2 pg (26.0-34.0); MCHC 32.7 g/dL (31.0-37.0); MCV 83.2 fL (80.0-100.0); MEAN PLATELET VOLUME 9.4 fL (7.4-10.4); MONOCYTES 12.7 % (2-11); NEUTROPHILS 71.4 % (40-80); PLATELET COUNT 185 10x3/uL (130-400); RBC 4.63 10x6/uL (4.20-6.10); RDW 15.4 % (11.5-14.5); WBC 5.4 10x3/uL (4.8-10.8)
[2018-07-01 04:54] LABS: ANION GAP 10.4 mmol/L (8-16); CALCIUM 8.3 mg/dL (8.5-10.1); CREATININE - SERUM 1.2 mg/dL (0.6-1.3); POTASSIUM - SERUM 3.4 mmol/L (3.5-5.1)
[2018-07-01 09:53] VITALS: BP 139/93
[2018-07-01 13:08] VITALS: BP 140/90
[2018-07-01 20:00] VITALS: BP 124/68
[2018-07-02 04:00] VITALS: BP 124/71
[2018-07-02 04:31] LABS: BASOPHILS 0.7 % (0-2); EOSINOPHILS 10.4 % (0-7); HEMATOCRIT 37.7 % (42.0-54.0); HEMOGLOBIN 12.2 g/dL (13.5-17.5); IMMATURE GRANULOCYTES 0.3 % (0-5); LYMPHOCYTES 7.4 % (15-50); MCH 26.9 pg (26.0-34.0); MCHC 32.4 g/dL (31.0-37.0); MCV 83.2 fL (80.0-100.0); MEAN PLATELET VOLUME 9.2 fL (7.4-10.4); MONOCYTES 12.7 % (2-11); NEUTROPHILS 68.5 % (40-80); PLATELET COUNT 182 10x3/uL (130-400); RBC 4.53 10x6/uL (4.20-6.10); RDW 15.4 % (11.5-14.5); WBC 6.1 10x3/uL (4.8-10.8)
[2018-07-02 04:46] LABS: ANION GAP 9.8 mmol/L (8-16); CARBON DIOXIDE 25.7 mmol/L (21.0-32.0); CREATININE - SERUM 1.1 mg/dL (0.6-1.3); POTASSIUM - SERUM 3.5 mmol/L (3.5-5.1)
[2018-07-02 08:17] VITALS: BP 143/83
== END 2018-07-02 15:50 | disposition home health service (06) | DRG 393 ==
LOC: D.ER 15:02 → D.EDHOLD 17:57 → D.MS 17:57 → D.ICU 17:57 → D.MS 19:51 → D.ICU 23:03 → D.MS 06-29 23:07
PROVIDERS: Emergency Medicine; Family Medicine; Surgery
DX: K66.9 Disorder of peritoneum, unspecified (principal); E43 Unspecified severe protein-calorie malnutrition; I13.0 Hypertensive heart and chronic kidney disease with heart failure and stage 1 through stage 4 chronic kidney disease, or unspecified chronic kidney disease; I50.30 Unspecified diastolic (congestive) heart failure; N17.9 Acute kidney failure, unspecified; C82.88 Other types of follicular lymphoma, lymph nodes of multiple sites; I25.119 Atherosclerotic heart disease of native coronary artery with unspecified angina pectoris; E03.9 Hypothyroidism, unspecified; N18.9 Chronic kidney disease, unspecified; E78.5 Hyperlipidemia, unspecified; K21.9 Gastro-esophageal reflux disease without esophagitis; R59.1 Generalized enlarged lymph nodes; R53.1 Weakness; J44.9 Chronic obstructive pulmonary disease, unspecified; K59.00 Constipation, unspecified; E86.0 Dehydration; K29.70 Gastritis, unspecified, without bleeding; K20.9 Esophagitis, unspecified; K31.84 Gastroparesis; Z68.21 Body mass index [BMI] 21.0-21.9, adult

== ENCOUNTER → 2018-07-09 12:42 | Outpatient (CLI) | payer MEDICARE ==
[2018-06-29 10:30] VITALS: BMI 21.0
--- NOTE | ~2018-07-09 | HEMODYNAMI ---
PATIENT:LEONCIO OLIVER MEDICAL RECORD: [id number] : 33 LOCATION:DOVIDIO ADMISSION DATE: 07/09/18 Generatedon:07/09/201814:17 Patient name: LEONCIO OLIVER Patient #: [id number] SSN: : 1935 Date of study: 07/09/2018 Page: Of Hemodynamic Procedure Report Patient Data Patient Demographics Procedure consent was obtained First Name: LEONCIO Gender: Male Last Name: MELODY : 1935 Middle Initial: R Age: 83 year(s) Patient #: [id number] Race: Additional ID: [id number] Contact details Address: [address] [place] [address] State: [place] City: [place] Zip code: [address] Past Medical History Allergies Allergen Reaction Date Comments Reported Other allergy 02/13/2018 Plavix Admission Admission Data Admission Date: 07/09/2018 Admission Time: 12:42 Weight (lbs.): 144 Weight (kg.): 65.32 Procedure Procedure Types Cath Procedure Peripheral Cath Diagnostic Procedure Cath Peripheral Gastric G J Tube Replacement Procedure Description Procedure Date Procedure Date: 07/09/2018 Procedure Start Time: 13:58 Procedure Staff Name Function Autumn Gomez MD Performing Physician Marcie Costa RT Tool Design Engineer Blessing Rodrigez RN Nurse Jesus Feliz RT Scrub Procedure Data Cath Procedure Fluoroscopy Diagnostic fluoroscopy Total fluoroscopy Time: 0 time: 0 min min Diagnostic fluoroscopy Total fluoroscopy dose: 92 dose: 92 mGy mGy Contrast Material Contrast Material Type Amount (ml) Isovue 300 20 Diagnostic catheters Device Type Used For End Catheter Placement Merit Impress KA 2 5Fr 40CM catheter ([id number]) Hemodynamics Rest Pre Cath Intra NCS Post Cath Procedure Log Time Note 13:46:51 Patient Weight : 144 lbs 13:47:19 Use device set IR Diagnostic 13:47:21 Sterile Angiographic Pack opened to sterile field. 13:47:22 Bag Decanter () opened to sterile field. 13:47:37 JEJUNAL 22Fr 45cm Tube (266723) opened to sterile field. 13:47:51 Time tracking: Regular hours (M-F 7:00 - 5:00) 13:51:38 Signed procedure consent form obtained from patient. 13:52:17 Is the patient allergic to Iodine/contrast media? No. 13:57:41 Physician arrived 13:57:49 --------ALL STOP TIME OUT------ 13:57:50 Final Timeout: patient, procedure, and site verified with staff and physician. All members of the team are in agreement. 13:58:04 Procedure started. 13:58:04 Full Disclosure recording started 14:04:34 [facility] .035 145 glide wire (L74809) opened to sterile field. 14:07:02 A Merit Impress KA 2 5Fr 40CM catheter ([id number]) was advanced over the wire and used for . 14:11:13 Meyer 180 wire (F10549) opened to sterile field. 14:16:49 Procedure ended.(Physican Out) 14:17:02 Contrast amount:Isovue 300 20ml. 14:17:07 Fluoroscopy time 00.00 minutes. 14:17:12 Fluoroscopy dose: 92 mGy 14:17:12 Flurop Dose total: 92 Device Usage Item Name Manufacture Quantity Catalog Hospital Part Current Minimal Lot# / Number Charge Number Stock Stock Serial# Code Sterile Cardinal 1 [id number] 069642 150586 5 Angiographic Health Pack Bag Decanter Microtek 1 835881 95722 419076 5 () [employer] Inc. JEJUNAL 22Fr [facility] 1 799959 197153 795767 5 45cm Tube [place] (903911) [facility] Natural Dentist Medical 1 [id number] 682737 719019 518867 5 [id number] .035 145 glide wire ([id number]) Merit Merit 1 [id number] 006791 728739 5 Impress KA 2 Medical 5Fr 40CM catheter ([id number]) Meyer 180 Cook Medical 1 [id number] 466454 689924 [id number] 5 [id number] wire ([id number]) Signature Audit [place] Stage Time Signature Unsigned Intra-Procedure 07/09/2018 Marcie Costa 2:17:52 PM RT(R) [id number] [place] [address]
[~2018-07-09 12:42] MED LIST changes: +NORCO 10-325 TA1 TAB PO
== END | disposition home or self-care (01) ==
LOC: D.SP 12:42 → D.RAD 14:00
DX: K94.13 Enterostomy malfunction (principal); Z01.812 Encounter for preprocedural laboratory examination

== ENCOUNTER 2018-07-16 08:32 | Day surgery (SDC) | payer MEDICARE ==
[~2018-07-16] VITALS: Ht 177.8 cm; Wt 64.0 kg
--- NOTE | ~2018-07-16 | OP ---
PATIENT NAME: LEONCIO OLIVER MEDICAL RECORD: [id number] :33 LOCATION:D.OPS ADMISSION DATE: SURGEON: REBEL RAMIREZ MD DATE OF OPERATION: 07/16/2018 PREOPERATIVE DIAGNOSES: 1. Follicular lymphoma. 2. Gastroesophageal reflux disease. 3. Diastolic congestive heart failure. 4. Hypertension. 5. Hyperlipidemia. 6. Coronary artery disease. POSTOPERATIVE DIAGNOSES: 1. Follicular lymphoma. 2. Gastroesophageal reflux disease. 3. Diastolic congestive heart failure. 4. Hypertension. 5. Hyperlipidemia. 6. Coronary artery disease. PROCEDURE IN DETAIL: 1. Left subclavian vein port placement. 2. Fluoroscopic interpretation. SURGEON: Rebel Ramirez MD REPORT OF PROCEDURE: The patient's left chest was prepped and draped in sterile fashion. A needle was used to cannulate the left subclavian vein and a guidewire was advanced with ease. Fluoro was used to note that the wire was in good position in the venous system. A skin incision was made on the left superior lateral chest and a subcutaneous pouch was made over the pectoral fascia. The catheter was tunneled between this pouch and the wire exit site. We then sutured the port to the pectoral fascia using interrupted 2-0 Prolenes times 2. The catheter was cut with a beveled tip at 25 cm. The dilator trocar device placed over the wire and the wire and dilator were removed. The catheter tip was advanced through the trocar and the trocar was removed. The catheter rested in good position with the tip at the right atrial superior vena caval junction. The catheter aspirated nonpulsatile dark blood and flushed easily with heparinized saline. We then reapproximated the subcutaneous tissues with interrupted 3-0 Vicryl and the skin incisions were closed with subcutaneous 5-0 Monocryl. COMPLICATIONS: None. CONDITION: Stable. ANESTHESIA: General endotracheal. BLOOD LOSS: Minimal. TRANSINT:[id number] Voice Confirmation ID: [id number] DOCUMENT ID: [id number] OPERATIVE REPORT [id number] OLIVER,REBEL NO MD CC: DYLON SUE MD and NED BEY MD [id number] DICTATION DATE: 07/16/18 1331 DESK LIEUTENANT: 07/16/18 [address] [place] [address]
[~2018-07-16 08:32] MED LIST changes: -NORCO 10-325 TA1 TAB PO
[2018-07-16 09:13] LABS: BASOPHILS 0.4 % (0-2); EOSINOPHILS 4.6 % (0-7); HEMATOCRIT 39.4 % (42.0-54.0); HEMOGLOBIN 12.7 g/dL (13.5-17.5); IMMATURE GRANULOCYTES 0.3 % (0-5); LYMPHOCYTES 10.8 % (15-50); MCH 26.9 pg (26.0-34.0); MCHC 32.2 g/dL (31.0-37.0); MCV 83.5 fL (80.0-100.0); MEAN PLATELET VOLUME 9.5 fL (7.4-10.4); MONOCYTES 18.1 % (2-11); NEUTROPHILS 65.8 % (40-80); PLATELET COUNT 199 10x3/uL (130-400); RBC 4.72 10x6/uL (4.20-6.10); RDW 15.2 % (11.5-14.5); WBC 6.8 10x3/uL (4.8-10.8)
[2018-07-16 09:20] LABS: CALC OSMOLALITY 272 mosm/kg (275-300); CALCIUM 9.3 mg/dL (8.5-10.1); CARBON DIOXIDE 27.4 mmol/L (21.0-32.0); CHLORIDE - SERUM 101 mmol/L (98-107); CREATININE - SERUM 0.9 mg/dL (0.6-1.3); GLUCOSE 98 mg/dL (74-106); POTASSIUM - SERUM 4.4 mmol/L (3.5-5.1); SODIUM 136 mmol/L (136-145); UREA NITROGEN 16 mg/dL (7-18); eGFR NON AFRICAN AMERICAN 85 mL/min (90-120)
[2018-07-16 09:33] LABS: APTT 25.8 SECONDS (22.8-39.4); INR 1.01 (0.85-1.17); PROTIME 12.9 SECONDS (11.6-15.0)
[2018-07-16 10:09] VITALS: BP 119/66; Ht 177.8 cm; Wt 64.0 kg
[2018-07-16] MEDS ORDERED: NORCO 10-325 TA1 TAB PO (13:32)
== END 2018-07-16 15:30 | disposition home or self-care (01) ==
LOC: D.OPS 08:32
PROVIDERS: Anesthesiology
DX: C82.90 Follicular lymphoma, unspecified, unspecified site (principal); K21.9 Gastro-esophageal reflux disease without esophagitis; I11.0 Hypertensive heart disease with heart failure; I50.30 Unspecified diastolic (congestive) heart failure; E78.5 Hyperlipidemia, unspecified; I25.10 Atherosclerotic heart disease of native coronary artery without angina pectoris

== ENCOUNTER → 2018-08-18 11:34 | Outpatient (CLI) | payer MEDICARE ==
[2018-07-16 10:09] VITALS: BMI 20.2
[~2018-08-18 11:34] MED LIST changes: +NORCO 10-325 TA1 TAB PO
[2018-08-18 12:17] LABS: ALBUMIN 2.9 g/dL (3.4-5.0); ALKALINE PHOSPHATASE 184 U/L (46-116); ALT (SGPT) 53 U/L (10-68); BILIRUBIN - TOTAL 0.46 mg/dL (0.2-1.3); CALC OSMOLALITY 283 mosm/kg (275-300); CALCIUM 8.9 mg/dL (8.5-10.1); CARBON DIOXIDE 29.3 mmol/L (21.0-32.0); CHLORIDE - SERUM 106 mmol/L (98-107); CREATININE - SERUM 0.8 mg/dL (0.6-1.3); GLUCOSE 95 mg/dL (74-106); POTASSIUM - SERUM 4.2 mmol/L (3.5-5.1); PROTEIN - SERUM 5.7 g/dL (6.4-8.2); SODIUM 142 mmol/L (136-145); UREA NITROGEN 16 mg/dL (7-18); eGFR NON AFRICAN AMERICAN > 90 mL/min (90-120)
== END | disposition home or self-care (01) ==
LOC: D.LABREF 11:34
PROVIDERS: Internal Medicine Hematology & Oncology
DX: C82.92 Follicular lymphoma, unspecified, intrathoracic lymph nodes (principal); D72.819 Decreased white blood cell count, unspecified

== ENCOUNTER 2018-12-02 18:09 | Emergency (ER) | payer MEDICARE ==
[~2018-12-02] VITALS: Ht 177.8 cm; Wt 70.5 kg
[2018-12-02 18:20] VITALS: Ht 177.8 cm; Wt 70.5 kg
[2018-12-02 19:58] VITALS: BP 134/52
== END 2018-12-02 19:58 | disposition home or self-care (01) ==
LOC: D.ER 18:09
DX: K94.13 Enterostomy malfunction (principal); I25.10 Atherosclerotic heart disease of native coronary artery without angina pectoris; C82.90 Follicular lymphoma, unspecified, unspecified site

== ENCOUNTER → 2018-12-03 10:24 | Outpatient (CLI) | payer MEDICARE ==
[2018-12-02 18:20] VITALS: BMI 22.2
--- NOTE | ~2018-12-03 | HEMODYNAMI ---
PATIENT:LEONCIO OLIVER MEDICAL RECORD: [id number] : 33 LOCATION:[facility] ADMISSION DATE: 12/03/18 Generatedon:12/03/201813:17 Patient name: LEONCIO OLIVER Patient #: [id number] SSN: : 1935 Date of study: 12/03/2018 Page: Of Hemodynamic Procedure Report Patient Data Patient Demographics Procedure consent was obtained First Name: LEONCIO Gender: Male Last Name: MELODY : 1935 Middle Initial: R Age: 83 year(s) Patient #: [id number] Race: Additional ID: [id number] Contact details [address]: [address] [place] [address] State: [place] City: [place] Zip code: [address] Past Medical History Allergies Allergen Reaction Date Comments Reported Other allergy 02/13/2018 Plavix Admission Admission Data Admission Date: 12/03/2018 Admission Time: 10:24 Procedure Procedure Types Cath Procedure Peripheral Cath Diagnostic Procedure Gastric Procedure Description Procedure Date Procedure Date: 12/03/2018 Procedure Start Time: 12:45 Procedure Staff Name Function Arnol Garcia MD Performing Physician Jesus Feliz RT Monitor Chrissy Osborne RN Nurse Alma Bragg Scrub Procedure Data Cath Procedure Fluoroscopy Diagnostic fluoroscopy Total fluoroscopy Time: time: 13.5 min 13.5 min Diagnostic fluoroscopy Total fluoroscopy dose: 139 dose: 139 mGy mGy Contrast Material Contrast Material Type Amount (ml) Isovue 300 35 Hemodynamics Rest Pre Cath Intra NCS Post Cath Procedure Log Time Note 12:26:12 Jesus Feliz RT (R) (CV) sent for patient. Start room use. 12:26:14 Time tracking: Regular hours (M-F 7:00 - 5:00) 12:26:20 Patient received from Outpatients to IR Alert and oriented. Tansferred to table in Supine position. 12:26:28 Correct patient and procedure confirmed by team. 12:26:30 Signed procedure consent form obtained from patient. 12:26:32 Full Disclosure recording started 12:26:32 - 12::34 Pre-procedure instructions explained to patient. 12::34 Pre-op teaching completed and patient verbalized understanding. 12:26:36 Family in waiting room. 12:27:50 pt states no allergies 12::55 Is patient on blood thinner?Yes 12:28:00 ACC The patient was administered the following blood thiners within the last 24 hours: ACCPlavix 12:28:08 Left Abdomen was prepped with chlora-prep and draped in sterile fashion . 12:28:17 Use device set IR Diagnostic 12:28:19 Bag Decanter (2002S) opened to sterile field. 12:28:20 Sterile Angiographic Pack opened to sterile field. 12:44:57 Physician arrived 12:44:58 --------ALL STOP TIME OUT------ 12:44:59 Final Timeout: patient, procedure, and site verified with staff and physician. Fire safety check completed. All members of the team are in agreement. 12:45:02 Left abdomen site verified by team. 12:45:08 Sedation plan: Local Anesthetic Medication:Lidocaine 12:45:41 Procedure started. 12:45:53 Local anesthetic to Abdominal area with Lidocaine 1% by Arnol Garcia MD.INITIAL ACCESS ONLY 12:46:11 GASTRO-ENTERIC 20Fr Feeding Tube (033083) opened to sterile field. 12:51:07 SHEATH 7FR Placida (NJP807) opened to sterile field. 12:58:00 ROADRUNNER .035 145 glide wire (F78002) opened to sterile field. 12:58:04 GLIDE CATHETER 5FR COBRA 65cm (CG502) opened to sterile field. 13:03:27 GLIDE WIRE Angled Super Stiff 180cm (FA2879) opened to sterile field. 13:15:55 Procedure ended.(Physican Out) 13:16:02 Fluoroscopy time 13.50 minutes. 13:16:07 Fluoroscopy dose: 139 mGy 13:16:07 Flurop Dose total: 139 13:16:32 Contrast amount:Isovue 300 35ml. 13:16:33 Sharps counted by scrub and verified by R.N. 13:17:33 pt sent home in stable condition Device Usage Item Name Manufacture Quantity Catalog Hospital Part Current Minim al Lot# / Number Charge Number Stock Stock Serial# Code Bag Decanter Microtek 1 [id number] [id number] 5 () [employer] Sterile Cardinal 1 [id number] 202186 [id number] 5 Angiographic Health Pack GASTRO-ENTERIC [place]ard 1 209- 932256 658278 5 22Fr Feeding Petta [facility] Tube (845445) SHEATH 7FR Terumo 1 BBK527 316228 969796 457889 5 Placida (UKI824) [facility] 1 F95561 956770 559930 383924 5 [id number] .035 145 glide wire (T63950) GLIDE CATHETER Terumo 1 CG502 018029 980614 5 5FR COBRA 65cm (CG502) GLIDE WIRE Terumo 1 UE8308 441466 280954 5 Angled Super Stiff 180cm (MA7102) Signature Audit Shell Stage Time Signature Unsigned Intra-Procedure 12/03/2018 Jesus 1:17:46 PM Mahoganyield RT (R) (CV) Signatures Monitor : Jesus Signature : Trini RT Date : Time : [facility] [address] [place] [address]
== END | disposition home or self-care (01) ==
LOC: D.RAD 10:24
DX: C82.90 Follicular lymphoma, unspecified, unspecified site (principal)

== ENCOUNTER → 2019-01-06 14:02 | Outpatient (CLI) | payer MEDICARE ==
[2018-12-02 18:20] VITALS: BMI 22.2
== END | disposition home or self-care (01) ==
LOC: D.NM 14:02
PROVIDERS: ATTEND Internal Medicine Gastroenterology
DX: C85.12 Unspecified B-cell lymphoma, intrathoracic lymph nodes (principal); K21.9 Gastro-esophageal reflux disease without esophagitis

== ENCOUNTER → 2019-01-08 08:47 | Outpatient (CLI) | payer MEDICARE ==
[2018-12-02 18:20] VITALS: BMI 22.2
== END | disposition home or self-care (01) ==
LOC: D.RAD 08:47
PROVIDERS: ATTEND Internal Medicine Gastroenterology
DX: C85.12 Unspecified B-cell lymphoma, intrathoracic lymph nodes (principal); K21.9 Gastro-esophageal reflux disease without esophagitis

== ENCOUNTER → 2019-01-14 12:57 | Outpatient (CLI) | payer MEDICARE ==
[2018-12-02 18:20] VITALS: BMI 22.2
== END | disposition home or self-care (01) ==
LOC: D.RAD 12:57
PROVIDERS: ATTEND Internal Medicine Gastroenterology
DX: C85.12 Unspecified B-cell lymphoma, intrathoracic lymph nodes (principal); K21.9 Gastro-esophageal reflux disease without esophagitis

== ENCOUNTER 2019-06-18 05:59 | Inpatient (IN) | payer MEDICARE ==
[~2019-06-18] VITALS: Ht 177.8 cm; Wt 73.9 kg
[2019-06-18 06:41] LABS: BASOPHILS 0.2 % (0-2); EOSINOPHILS 2.4 % (0-7); HEMOGLOBIN 14.6 g/dL (13.5-17.5); IMMATURE GRANULOCYTES 0.2 % (0-5); LYMPHOCYTES 22.9 % (15-50); MCH 29.9 pg (26.0-34.0); MCV 88.1 fL (80.0-100.0); MONOCYTES 16.8 % (2-11); NEUTROPHILS 57.5 % (40-80); RBC 4.88 10x6/uL (4.20-6.10); RDW 14.1 % (11.5-14.5); WBC 4.1 10x3/uL (4.8-10.8)
[2019-06-18 06:44] LABS: ANION GAP 10.2 mmol/L (8-16); CALCIUM 9.2 mg/dL (8.5-10.1); CREATININE - SERUM 1.1 mg/dL (0.6-1.3); POTASSIUM - SERUM 4.2 mmol/L (3.5-5.1)
[2019-06-18 06:46] LABS: APTT 32.5 SECONDS (22.8-39.4); INR 1.04 (0.85-1.17); PROTIME 13.1 SECONDS (11.6-15.0)
[2019-06-18 06:52] LABS: PLATELET COUNT 140 10x3/uL (130-400)
[2019-06-18] MEDS ORDERED: PEPCID AC20 MG PO (07:20)
[2019-06-18 07:22] VITALS: BP 141/73; Ht 177.8 cm; Wt 73.9 kg
--- NOTE | 2019-06-18 10:17 | NUR ---
PT WILL BE ADMITTED TO OUTPATIENT WAITING ON A MED SURG BED. PT HAS HAD A TOTAL OF 12MG OF MORPHINE AND STATES LITTLE TO NO PAIN RELIEF. PT IS SHIVERING AND REC'D DEMEROL ORDERED. WILL SEE IF IT ALSO HELPS PAIN AND THEN IF NOT WILL CONTACT ANESTHESIA FOR FURTHER ORDERS. PT VOICED THANKS AND UNDERSTANDS. VSS. WILL CTM.
[2019-06-18 15:16] VITALS: BP 131/51
--- NOTE | 2019-06-18 15:31 | NUR ---
JUST ARRIVED TO ROOM 2235 VIA STRETCHER AWAKE AND ALERT. RESP EVEN AND UNLABORED WITH NO DISTRESS NOTED. CAN EXPRESS NEEDS AND WANTS. HAS 4 LAP SITE TO ABDOMEN WITH BAND-AIDES INTACT. NO C/O PAIN OR DISCOMFORT NOTE OR VOICED HAS DILAUDID COMPANY SECRETARY INFUSING AT THIS TIME STARTED IN RECOVERY. AND C/L I REACH AT BEDSIDE.
--- NOTE | 2019-06-18 16:01 | NUR ---
I have reviewed this patient and I concur with the Shift Assessment completed by the Licensed Practical Nurse today this shift.
--- NOTE | 2019-06-18 17:45 | NUR ---
AFTER IV DILAUDED PT STATES PAIN IN 2-3. RESTING. 1430 TRAVEL CONSULTANT STARTED 1500 TRANSFERRED TO 2234 IN STABLE CONDITION
--- NOTE | 2019-06-18 19:44 | NUR ---
IN ROOM WITH FAMILY AT BEDSIDE. FLUIDS INFUSING PER IV PER ORDER, ABLE TO VOICE ALL NEEDS, MAGNETIC RESONANCE TECHNOLOGIST IS ACTIVE AND BUTTON IN HAND. DENIES ANY ACUTE DISTRESS AT THIS TIME. WILL NOTE ANY CAHNGE.
[2019-06-18 20:00] VITALS: BP 164/61
[2019-06-19] VITALS: BP 138/60
[2019-06-19 04:00] VITALS: BP 133/51
--- NOTE | 2019-06-19 04:34 | NUR ---
I have reviewed this patient and I concur with the Shift Assessment completed by the Licensed Practical Nurse today this shift.
--- NOTE | 2019-06-19 06:05 | NUR ---
RESTED WELL THIS SHIFT, THIS MORNING HE REPORTS HE DID NOT HAVE TO PUSH HIS PAIN BUTTON VERY OFTEN, WAS SORE THIS MORNING, BUT OTHERWISE HAD NO COMPLAINTS. INSTRUCTED TO ALERT NURSE OF ANY CHANGE. HE UNDERSTOOD. WILL NOTE ANY CHANGE.
[2019-06-19 06:46] LABS: BASOPHILS 0.3 % (0-2); HEMATOCRIT 41.3 % (42.0-54.0); HEMOGLOBIN 13.8 g/dL (13.5-17.5); IMMATURE GRANULOCYTES 0.3 % (0-5); LYMPHOCYTES 27.5 % (15-50); MCH 29.7 pg (26.0-34.0); MCHC 33.4 g/dL (31.0-37.0); MEAN PLATELET VOLUME 9.5 fL (7.4-10.4); MONOCYTES 15.7 % (2-11); NEUTROPHILS 55.2 % (40-80); PLATELET COUNT 126 10x3/uL (130-400); RBC 4.64 10x6/uL (4.20-6.10); RDW 14.2 % (11.5-14.5); WBC 3.1 10x3/uL (4.8-10.8)
[2019-06-19 07:05] LABS: CALC OSMOLALITY 283 mosm/kg (275-300); CALCIUM 8.6 mg/dL (8.5-10.1); CARBON DIOXIDE 26.2 mmol/L (21.0-32.0); CHLORIDE - SERUM 109 mmol/L (98-107); CREATININE - SERUM 0.9 mg/dL (0.6-1.3); GLUCOSE 80 mg/dL (74-106); SODIUM 143 mmol/L (136-145); UREA NITROGEN 13 mg/dL (7-18); eGFR NON AFRICAN AMERICAN 85 mL/min (90-120)
--- NOTE | 2019-06-19 07:39 | NUR ---
PT RESTING IN BED WITH EYES OPEN, AT THE BEDSIDE. BREATHING EVEN AND NONLABORED, WITH NO S/S OF DISTRESS. IV LOCATED TO LEFT HAND RUNNING NS @ 50 WITH DILAUDID STAPLER COIL UNIT PUMP. DENIES ANY NEEDS AT THIS TIME. BED LOW, CALL LIGHT IN REACH, RAILS UP X 2.
[2019-06-19] MEDS ORDERED: OXYCODONE HCL5 M1 PO (08:33)
[2019-06-19 09:35] VITALS: BP 129/49
--- NOTE | 2019-06-19 09:45 | NUR ---
PT SITTING UP IN BED WITH DAUGHTER AT BEDSIDE. DC`D DILAUDID CANDY CUTTER HAND. HAS FINISHED HIS CLEAR LIQUID BREAKFAST AND OF NOW IS TOLERATING WELL, WILL CONTINUE TO MONITOR. DENIES ANY FURTHER NEEDS AT THIS TIME.
--- NOTE | 2019-06-19 11:50 | NUR ---
PT REPORTS PAIN 4/10 REQUESTING PAIN MEDS. ADMINISTERED NORCO PER DRS ORDERS. DENIES ANY FURTHER NEEDS AT THIS TIME.
[2019-06-19 13:16] VITALS: BP 118/47
--- NOTE | 2019-06-19 15:13 | NUR ---
DC`D HOME WITH DAUGHTER VIA WHEELCHAIR.
--- NOTE | 2019-07-01 07:19 | OP ---
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 3. Coronary artery disease. 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 3. Coronary artery disease. PROCEDURE: Laparoscopic ligation of gastrocutaneous fistula. SURGEON: Rebel Ramirez MD REPORT OF PROCEDURE: The patient's abdomen was prepped and draped in sterile fashion. A Veress needle was inserted in the right upper quadrant and the abdomen was insufflated. A 5-mm Visiport trocar was inserted in the right lateral abdomen at about the level of the umbilicus. Once inside, we could see the Veress needle and there was no sign of any injury to bowel or surrounding structures. A 12-mm trocar was placed in the midline just below the umbilicus and a 5-mm trocar was placed in the left subcostal region. I could see the patient's gastrocutaneous fistula as this portion of the stomach was adherent to the anterior abdominal wall. A 45 green load Endo-LO stapler was used to transect this portion of the stomach, which released the gastrocutaneous fistula. We then removed the remainder of the stomach off the anterior abdominal wall and sent this off for permanent specimen. We then removed the ports and insufflation. The 12-mm trocar site fascia was closed with a single interrupted 0 Vicryl. We then poured out the gastrocutaneous fistula tract through the skin and sent this off for permanent specimen. The fascia was closed with a [id number] 0 Vicryl. We then irrigated out the wound with normal saline and closed the skin incisions with subcutaneous 5-0 Monocryl. A total of 10 mL of 0.25% Marcaine with epinephrine was infused into the surrounding tissues and the wounds were dressed appropriately. COMPLICATIONS: None. CONDITION: Stable. ANESTHESIA: General endotracheal and local. BLOOD LOSS: Minimal. TRANSINT:[id number] Voice Confirmation ID: [id number] DOCUMENT ID: [id number] OPERATIVE REPORT [id number] OLIVERMARIA TERESA SCHNEIDERREBEL SANDOVAL MD at 0719 CC: DYLON SUE MD [id number] DICTATION DATE: 06/18/1932 FUNDRAISING CONSULTANT: 06/18/19 0946 DIS IN 06/19/19 [place] [id number] [facility] [place] [address]
--- NOTE | 2019-07-30 11:37 | DS ---
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 3. Coronary artery disease. 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 3. Coronary artery disease. PROCEDURE: Laparoscopic ligation of gastrocutaneous fistula on 06/18/2019. CONSULTATIONS: None. REPORT OF HOSPITALIZATION: The patient was admitted to the hospital after successful laparoscopic ligation of a persistent gastrocutaneous fistula that was present after a PEG tube has been placed. The patient had no problems postoperatively and on postop day #1, he was tolerating a diet with good pain control and felt to be stable for discharge home. DISCHARGE INSTRUCTIONS: Return to clinic or call with any questions or concerns, fevers, chills, nausea, vomiting or worsening abdominal pain. ACTIVITIES: No heavy lifting or straining for 6 weeks postoperatively. FOLLOWUP: In clinic with me in 2-3 weeks. DISCHARGE MEDICATIONS: Resume home meds with the inclusion of oxycodone 5 mg p.r.n. TRANSINT:[id number] Voice Confirmation ID: [id number] DOCUMENT ID: [id number] MADDI RAMIREZ MD at 1137 CC: [id number] DICTATION DATE: 07/22/19 1315 SLAG DUMPER: 07/23/19 0129 DIS IN 06/19/19 [place] [id number] [place] [id number]
== END 2019-06-19 15:12 | disposition home or self-care (01) | DRG 988 ==
LOC: D.OPS 05:59 → D.PAN 10:00 → D.OPS 10:00 → D.MS 15:08 → D.OPS 15:09 → D.MS 15:10
PROVIDERS: Anesthesiology; ADMIT Surgery; ATTEND Surgery
PROC: 0DB64ZZ Excision of Stomach, Percutaneous Endoscopic Approach (ICD-10-PCS; 2019-06-18)
PROC: 0WBF4ZZ Excision of Abdominal Wall, Percutaneous Endoscopic Approach (ICD-10-PCS; principal; 2019-06-18 08:00)
DX: T81.83XA Persistent postprocedural fistula, initial encounter (principal); K31.6 Fistula of stomach and duodenum; I25.10 Atherosclerotic heart disease of native coronary artery without angina pectoris; Z85.72 Personal history of non-Hodgkin lymphomas